=== PATIENT | male | born 1945 | race Caucasian/White ===

== ENCOUNTER 2020-05-23 22:45 | Emergency (ER) | payer MEDICARE, MEDICAID, SELFPAY ==
[2020-05-23 22:47] VITALS: BP 159/90; PULSE 98; RESP 16; TEMP 36.6; O2SAT 95; BMI 41.0
--- NOTE | 2020-05-23 23:00 | ECG_ITS ---
Test Reason : GENERAL Blood Pressure : / mmHG Vent. Rate : 094 BPM Atrial Rate : 094 BPM P-R Int : 194 ms QRS Dur : 102 ms QT Int : 378 ms P-R-T Axes : 032 -40 026 degrees QTc Int : 472 ms Normal sinus rhythm RSR' or QR pattern in V1 suggests right ventricular conduction delay Left anterior fascicular block Nonspecific T wave abnormality Abnormal ECG No previous ECGs available Referred By: Ping Mancia Electronically Signed By:DARIA CORDOBA MD
[2020-05-23 23:01] VITALS: BP 148/84; PULSE 91; RESP 13; TEMP 36.8; O2SAT 93
--- NOTE | 2020-05-23 23:04 | PC.NURSE ---
Pt with c/o headache to back of his head 02/28 that is constant. Reports feelings of generally feeling bad which he attributes to elevated bp. Pt does have bruising to right jaw area which he reports is related to recent dental surgery. MD at bedside and aware of these reports/findings. O2 sat trending 95 and below on room air. This was also reported to md.
--- NOTE | 2020-05-23 23:13 | XR_ITS ---
EXAMINATION: XR CHEST CLINICAL INFORMATION: Cough COMPARISON: None TECHNIQUE: Frontal portable view of the chest was obtained. 11:18 PM FINDINGS: No significant abnormality is noted involving the heart, lungs, mediastinum, bony thorax or soft tissues. XR/XR chest 1V IMPRESSION: Unremarkable examination.
--- NOTE | 2020-05-23 23:13 | ED.GENADULT ---
HPI - General Adult General Chief complaint: General Medical Stated complaint: hi blood pressure Time Seen by Provider: 05/23/20 22:58 Source: patient Mode of arrival: ambulatory Limitations: no limitations History of Present Illness HPI narrative: This is a 74-year-old male history of diabetes who presents with 2 days of generalized weakness and not feeling well . In addition, patient states that he has been having headache and a higher than usual blood pressure. Otherwise, he denies dizziness, sore throat, cough, shortness of breath, leg swelling, chest pain / palpitations, nausea / vomiting /abdominal discomfort, denies polydipsia and polyuria. He states that over the past 2 weeks he has had a lot of dental work with a bridge placement on the upper dental line and then most recently within the past week several implants bilaterally on the lower dental line. He states he had a COVID-19 test 2 days ago in that the results were negative. Related Data Home Medications Medication Instructions Recorded Confirmed aspirin 1 tab PO DAILY 05/23/20 05/23/20 atorvastatin 1 tab PO DAILY 05/23/20 05/23/20 fdjmqzvopk-wxdclpldmbbyd-hshs 1 tab PO DAILY PRN 05/23/20 05/23/20 chlorhexidine gluconate PO BID 05/23/20 doxycycline monohydrate 1 tab PO BID 05/23/20 05/23/20 ibuprofen 1 tab PO TID 05/23/20 05/23/20 metformin 2 tab PO BID 05/23/20 05/23/20 metoprolol succinate 1 tab PO DAILY 05/23/20 05/23/20 sitagliptin [Januvia] 1 tab PO DAILY 05/23/20 05/23/20 Allergies Allergy/AdvReac Type Severity Reaction Status Date / Time Penicillin Allergy Unknown Swelling Uncoded 05/23/20 23:37 Sulfa Allergy Unknown Swelling Uncoded 05/23/20 23:37 Review of Systems Review of Systems: Pertinent positives and negatives as stated in HPI 10 point review of systems is otherwise negative. PMFSH Past Medical History Source: nursing notes reviewed Medical History Diabetes Social History Social History Alcohol intake: never Smoking Status: Never smoker Smoked in Last 30 Days: No Use of substances other than those prescribed or required for medical reasons: No Advance Directives: No Advance Directives Information Provided: No Physical Exam Vital Signs: Vital Signs: Vital Signs Temp Pulse Resp BP Pulse Ox 05/24/20 02:13 98.9 F 93 18 134/95 H 96 05/24/20 00:00 98.3 F 93 15 154/85 H 94 05/23/20 23:01 98.2 F 91 13 148/84 H 93 05/23/20 22:47 97.9 F 98 16 159/90 H 95 Body Mass Index 41.0 VITAL SIGNS: Reviewed. GENERAL: Well developed, well nourished, in no acute distress. HEAD: Normocephalic/atraumatic, EYES: PERRLA, EOMI intact without pain, no nystagmus/pallor/icterus noted EARS: Ext canals without abnormality, TMs non-bulging and non-erythematous NOSE: Nares patent bilateral OROPHARYNX: no oral lesions noted, posterior pharynx clear and non-erythematous without noted tonsillar enlargement/erythema/exudates NECK: Supple, no adenopathy LUNGS: Normal breath sounds. No adventitious sounds or accessory muscle use. SpO2<95> CARDIOVASCULAR: Regular rate and rhythm without noted murmurs, no JVD or lower extremity edema. ABDOMEN: Obese, soft, non-tender, non-distended with bowel sounds. No rigidity. No guarding. No palpable masses or hernias noted MUSCULOSKELETAL: No tenderness, deformities, or effusions noted on gross inspection. EXTREMITIES: No cyanosis, clubbing or edema. SKIN: Inspection of the skin reveals no rashes, ulcerations, jaundice, pallor, or petechiae, mild ecchymosis noted to bilateral aspects of mandible consistent with dental procedure. NEUROLOGIC: Alert and oriented x 4. Strength and sensation to light touch were grossly intact x 4. Course Course Course Narrative: This is a 74-year-old male with history and clinical presentation unclear as yet as the blood pressure is not excessively elevated differentials include everything from viral syndrome, CHF exacerbation, mild dehydration, doubt ACS. Review of all investigations is negative for any evidence of acute infection, anemia, but there is evidence mild dehydration with low sodium/ chloride and elevated BUN. Patient received 1 L of IV fluids with reported improvement of symptoms on re-evaluation. he will be discharged to home in stable condition instructed follow-up with his primary care provider by calling the office in the morning to establish an appointment. Medical Decision Making Lab Data Result diagrams: 05/23/20 23:33 05/23/20 23:33 Labs: Lab Results 05/23/20 05/23/20 05/23/20 Range/Units 23:33 23:33 23:33 WBC 10.7 (4.8-10.8) X10*3/uL RBC 5.66 (4.60-5.80) X10*6/uL Hgb 15.7 (14.0-18.0) g/dl Hct 46.7 (42-52) % MCV 82.5 (80-98) fL MCH 27.7 (27.0-33.0) pg MCHC 33.6 (31.0-36.0) g/dl RDW 13.2 (11.0-16.0) % Plt Count 267 (160-400) X10*3/uL MPV 11.4 (9.4-12.4) fL Immature Gran % (Auto) 0.7 H (0.0-0.4) % Neut % (Auto) 56.6 (45-73) % Lymph % (Auto) 26.7 (20-40) % Robeson % (Auto) 12.5 H (2-11) % Eos % (Auto) 2.5 (0-4) % Baso % (Auto) 1.0 (0-2) % Lymph # (Auto) 2.9 (1.2-4.9) X10*3/uL Robeson # (Auto) 1.3 H (0.1-1.2) X10*3/uL Eos # (Auto) 0.3 (0.0-0.4) X10*3/uL Baso # (Auto) 0.1 (0.0-0.2) X10*3/uL Abs Immat Gran (auto) 0.07 H (0.00-0.03) X10*3/uL Absolute Neuts (auto) 6.1 (2.0-8.3) X10*3/uL Absolute Nucleated RBC 0.000 (0.0-0.012) X10*3/uL Nucleated RBC % (auto) 0.0 (0.0-0.2) /100WBC Sodium 134 L (135-145) mmol/L Potassium 4.2 (3.3-5.1) mmol/l Chloride 95 L (96-108) mmol/L Carbon Dioxide 26 (22-29) mmol/L Anion Gap 17 (12-20) BUN 29 H (9-16) mg/dL Creatinine 1.36 (0.5-1.4) mg/dL Estim Creat Clear Calc 61.6 Estimated GFR 51 Random Glucose 321 H (60-115) mg/dL Calcium 9.3 (8.4-10.2) mg/dL Total Bilirubin 0.8 (0.0-1.0) mg/dL AST 25 (5-37) U/L ALT 32 (0-40) U/L Alkaline Phosphatase 80 (39-117) U/L Troponin I High Sens < 3.5 (<3.5-35.0) ng/L Total Protein 6.9 (6.5-8.0) g/dL Albumin 4.4 (3.5-5.0) g/dL Urine Color Urine Appearance Urine pH (5.0-8.0) Ur Specific [place] (1.005-1.025) Urine Protein (NEG-TRACE) MG/DL Urine Glucose (UA) (NEG) MG/DL Urine Ketones (NEG) MG/DL Urine Blood (NEG) Urine Nitrite (NEG) Ur Leukocyte Esterase (NEG) 05/24/20 Range/Units 00:50 WBC (4.8-10.8) X10*3/uL RBC (4.60-5.80) X10*6/uL Hgb (14.0-18.0) g/dl Hct (42-52) % MCV (80-98) fL MCH (27.0-33.0) pg MCHC (31.0-36.0) g/dl RDW (11.0-16.0) % Plt Count (160-400) X10*3/uL MPV (9.4-12.4) fL Immature Gran % (Auto) (0.0-0.4) % Neut % (Auto) (45-73) % Lymph % (Auto) (20-40) % Robeson % (Auto) (2-11) % Eos % (Auto) (0-4) % Baso % (Auto) (0-2) % Lymph # (Auto) (1.2-4.9) X10*3/uL Robeson # (Auto) (0.1-1.2) X10*3/uL Eos # (Auto) (0.0-0.4) X10*3/uL Baso # (Auto) (0.0-0.2) X10*3/uL Abs Immat Gran (auto) (0.00-0.03) X10*3/uL Absolute Neuts (auto) (2.0-8.3) X10*3/uL Absolute Nucleated RBC (0.0-0.012) X10*3/uL Nucleated RBC % (auto) (0.0-0.2) /100WBC Sodium (135-145) mmol/L Potassium (3.3-5.1) mmol/l Chloride (96-108) mmol/L Carbon Dioxide (22-29) mmol/L Anion Gap (12-20) BUN (9-16) mg/dL Creatinine (0.5-1.4) mg/dL Estim Creat Clear Calc Estimated GFR Random Glucose (60-115) mg/dL Calcium (8.4-10.2) mg/dL Total Bilirubin (0.0-1.0) mg/dL AST (5-37) U/L ALT (0-40) U/L Alkaline Phosphatase (39-117) U/L Troponin I High Sens (<3.5-35.0) ng/L Total Protein (6.5-8.0) g/dL Albumin (3.5-5.0) g/dL Urine Color YELLOW Urine Appearance CLEAR Urine pH 6.0 (5.0-8.0) Ur Specific [place] 1.020 (1.005-1.025) Urine Protein NEG (NEG-TRACE) MG/DL Urine Glucose (UA) 250 H (NEG) MG/DL Urine Ketones 5 (NEG) MG/DL Urine Blood NEG (NEG) Urine Nitrite NEG (NEG) Ur Leukocyte Esterase NEG (NEG) ECG Data Attestation: I personally reviewed and interpreted this ECG as follows: Prior ECG tracings: not available for review Interpretation: normal sinus rhythm, HR- 94, no evidence of acute ischemia, OR/QTC within normal limits Discharge Plan Discharge Clinical Impression: Dehydration Patient Disposition: Home, Self-Care Instructions: Dehydration (ED) Additional Instructions: 1. Please follow-up with your primary care provider by calling the office this morning to set up a follow-up appointment. 2. continue to drink plenty of fluids especially water. The patient and/or family acknowledge understanding of results (as applicable), diagnosis, treatment plan, need for follow up, and symptoms that should prompt a return to the emergency room. Prescriptions: No Action atorvastatin 40 mg tablet 1 tab PO DAILY RF: 0 metformin 500 mg tablet 2 tab PO BID RF: 0 aspirin 81 mg tablet,delayed release (DR/EC) 1 tab PO DAILY RF: 0 doxycycline monohydrate 100 mg tablet 1 tab PO BID RF: 0 peyjycyjlt-cibqeqxyeokqy-zify 50-325-40 mg tablet 1 tab PO DAILY PRN (Reason: headache) RF: 0 metoprolol succinate 25 mg tablet extended release 24 hr 1 tab PO DAILY RF: 0 ibuprofen 600 mg tablet 1 tab PO TID RF: 0 chlorhexidine gluconate 0.12 % mouthwash PO BID RF: 0 Januvia 100 mg tablet 1 tab PO DAILY RF: 0 Referrals: Physician,Unknown [Primary Care Provider] - 2 days (Re-evaluation)
[2020-05-23 23:37] LABS: MANUAL DIFF FLAG NO
[2020-05-23 23:39] LABS: Basophils Absolute Auto 0.1 X10*3/uL (0.0-0.2); Eosinophils Absolute Auto 0.3 X10*3/uL (0.0-0.4); Eosinophils Percent Auto 2.5 % (0-4); Hematocrit 46.7 % (42-52); Hemoglobin 15.7 g/dl (14.0-18.0); Imm Gran Abs Auto 0.07 X10*3/uL (0.00-0.03); Imm Gran Pct Auto 0.7 % (0.0-0.4); Lymphocytes Absolute Auto 2.9 X10*3/uL (1.2-4.9); Lymphocytes Percent Auto 26.7 % (20-40); Mean Corpuscular HGB Conc 33.6 g/dl (31.0-36.0); Mean Corpuscular Hemoglobin 27.7 pg (27.0-33.0); Mean Corpuscular Volume 82.5 fL (80-98); Mean Platelet Volume 11.4 fL (9.4-12.4); Monocytes Absolute Auto 1.3 X10*3/uL (0.1-1.2); Monocytes Percent Auto 12.5 % (2-11); Neutrophils Absolute Auto 6.1 X10*3/uL (2.0-8.3); Neutrophils Percent Auto 56.6 % (45-73); Platelet Count 267 X10*3/uL (160-400); Red Blood Count 5.66 X10*6/uL (4.60-5.80); Red Cell Distribution Width 13.2 % (11.0-16.0); White Blood Count 10.7 X10*3/uL (4.8-10.8)
[2020-05-24] VITALS: BP 154/85; PULSE 93; RESP 15; TEMP 36.8; O2SAT 94
[2020-05-24 00:05] LABS: Alanine Aminotransferase 32 U/L (0-40); Albumin Level 4.4 g/dL (3.5-5.0); Alkaline Phosphatase 80 U/L (39-117); Anion Gap 17 (12-20); Aspartate Amino Transferase 25 U/L (5-37); Bilirubin Total 0.8 mg/dL (0.0-1.0); Blood Urea Nitrogen 29 mg/dL (9-16); Calcium 9.3 mg/dL (8.4-10.2); Carbon Dioxide 26 mmol/L (22-29); Chloride 95 mmol/L (96-108); Creatinine Clr Calc Pharmacy 61.6; Estimated Glomerular Filt Rate 51; Glucose Random 321 mg/dL (60-115); Potassium 4.2 mmol/l (3.3-5.1); Sodium 134 mmol/L (135-145); Total Protein 6.9 g/dL (6.5-8.0)
[2020-05-24 00:08] LABS: Troponin-I High Sensitivity < 3.5 ng/L (<3.5-35.0)
[2020-05-24] MEDS: 0.9 % Sodium Chloride 1,000 ML 1000 ML IV (00:40)
--- NOTE | 2020-05-24 01:10 | PC.NURSE ---
report taken from alexa douglas at this time. pending urine sample. vague headache symptoms associated with his stated complaint of high bp. pt neuro intact, nad noted. denies chest pain.
[2020-05-24 01:18] LABS: Glucose Urine UA 250 MG/DL (NEG); Leukocyte Esterase Urine NEG (NEG); Nitrite Urine NEG (NEG); Urine Blood NEG (NEG); Urine Ketones 5 MG/DL (NEG); Urine Protein NEG (NEG-TRACE)
[2020-05-24 01:20] LABS: Appearance Urine CLEAR; Color Urine YELLOW
[2020-05-24 02:13] VITALS: BP 134/95; PULSE 93; RESP 18; TEMP 37.2; O2SAT 96
--- NOTE | 2020-05-24 02:23 | PC.NURSE ---
pt requesting to leave, states he feels better. iv d/c. bp stable. nad nopted. neuro intact. ambulating with steady gait.
== END 2020-05-24 02:33 | disposition home or self-care (01) ==
PROVIDERS: Emergency Provider Student in an Organized Health Care Education/Training Program
DX: E86.0 Dehydration (principal); I10 Essential (primary) hypertension; R51.9 Headache, unspecified; R42 Dizziness and giddiness; Z79.899 Other long term (current) drug therapy; Z20.828 Contact with and (suspected) exposure to other viral communicable diseases
CPT/HCPCS: 36415; 71045; 80053; 81003; 84484; 85025; 93005; 96360; 99284

== ENCOUNTER 2020-12-31 22:26 | Emergency (ER) | payer MEDICARE, MEDICAID, SELFPAY ==
--- NOTE | ~2020-12-31 | XR_ITS ---
EXAMINATION: XR KNEE, LEFT CLINICAL INFORMATION: Fall, pain COMPARISON: None TECHNIQUE: Four views of the left knee. FINDINGS: Osseous alignment is anatomic. There is mild tricompartmental joint space narrowing. Minimal spurring is present along the posterior patella. No acute fracture is seen. There is mild chronic appearing cortical deformity of the distal femur posteriorly. No significant effusion. Minimal vascular calcification noted. XR/XR knee LT 4V IMPRESSION: No acute findings identified.
--- NOTE | ~2020-12-31 | XR_ITS ---
EXAMINATION: XR ANKLE, LEFT XR FOOT, LEFT CLINICAL INFORMATION: Fall with pain and swelling COMPARISON: None TECHNIQUE: 3 views of the left ankle. 3 views of the left foot. FINDINGS: Left ankle: Osseous alignment is anatomic. No acute fracture is seen. Mild circumferential soft tissue swelling is noted. Left foot: Osseous alignment is anatomic. No acute fracture is seen. Plantar calcaneal spur is present. No significant focal soft tissue abnormality identified. Small amount of calcification between the first and second metatarsals is favored to be vascular. XR/XR foot LT min 3V IMPRESSION: No acute findings identified in the left ankle or foot.
--- NOTE | ~2020-12-31 | XR_ITS ---
EXAMINATION: XR ELBOW, LEFT CLINICAL INFORMATION: Fall COMPARISON: None TECHNIQUE: AP, lateral, and oblique views of the left elbow. FINDINGS: Osseous alignment is anatomic. No acute fracture is seen. There is suggestion of calcific tendinosis near the medial epicondyle. No significant effusion. XR/XR elbow LT 2V IMPRESSION: No acute findings identified.
--- NOTE | ~2020-12-31 | XR_ITS ---
EXAMINATION: XR ANKLE, LEFT XR FOOT, LEFT CLINICAL INFORMATION: Fall with pain and swelling COMPARISON: None TECHNIQUE: 3 views of the left ankle. 3 views of the left foot. FINDINGS: Left ankle: Osseous alignment is anatomic. No acute fracture is seen. Mild circumferential soft tissue swelling is noted. Left foot: Osseous alignment is anatomic. No acute fracture is seen. Plantar calcaneal spur is present. No significant focal soft tissue abnormality identified. Small amount of calcification between the first and second metatarsals is favored to be vascular. XR/XR ankle LT min 3V IMPRESSION: No acute findings identified in the left ankle or foot.
[2020-12-31 23:56] VITALS: BP 125/67; PULSE 83; RESP 20; TEMP 36.2; O2SAT 95; BMI 41.0
--- NOTE | 2021-01-01 00:52 | ED.FALL ---
HPI - Fall General Chief Complaint: Fall Stated Complaint: left foot pain Time Seen by Provider: 01/01/21 00:18 Source: patient Mode of arrival: ambulatory Limitations: no limitations History of Present Illness HPI Narrative: 75-year-old male presents with injury sustained from a fall while walking in the [place]. He fell on his left elbow, left knee and left ankle. He does have some abrasions to the knee and elbow and swelling to the left ankle. He is able to ambulate however states the pain is preventing him from walking appropriately. He does not know when his last Tdap vaccine was updated. He denies hitting his head, losing his consciousness, and denies chest pain and pressure, palpitations, shortness of breath, shortness of breath on exertion, abdominal pain and distention, symptoms indicating cauda equina, and any other concerning symptoms. He denies prodromal event, and states that he was distracted by a deer when he tripped and fell. MD complaint: fall Onset (ago): hour(s) (3:00 p.m.) Fall from: standing Fall witnessed: yes, by bystander Place fall occurred: other (Forced) Loss of consciousness: none Prolonged down time: no Symptoms prior to fall: none Context: tripped/slipped Location of injury - extremities: left: elbow, knee, ankle and foot Severity: moderate Severity scale (1-10): 5 Quality: aching Associated symptoms (after fall): denies Related Data Home Medications Medication Instructions Recorded Confirmed aspirin 1 tab PO DAILY 05/23/20 05/23/20 atorvastatin 1 tab PO DAILY 05/23/20 05/23/20 tqtjttsrcq-ajnpkyygspaut-rbaz 1 tab PO DAILY PRN 05/23/20 05/23/20 chlorhexidine gluconate PO BID 05/23/20 doxycycline monohydrate 1 tab PO BID 05/23/20 05/23/20 ibuprofen 1 tab PO TID 05/23/20 05/23/20 metformin 2 tab PO BID 05/23/20 05/23/20 metoprolol succinate 1 tab PO DAILY 05/23/20 05/23/20 sitagliptin [Januvia] 1 tab PO DAILY 05/23/20 05/23/20 Allergies Allergy/AdvReac Type Severity Reaction Status Date / Time Penicillin Allergy Unknown Swelling Uncoded 05/23/20 23:37 Sulfa Allergy Unknown Swelling Uncoded 05/23/20 23:37 Review of Systems Review of Systems: Constitutional: No Fever, No Chills ENT/Mouth: No Ear Pain, No Hoarseness, No sore throat Eyes: No Eye Pain, No Swelling, No Redness, No Foreign Body Cardiovascular: No Chest Pain, No SOB Respiratory: No Cough, No Dyspnea Gastrointestinal: No Nausea, No Vomiting, No Diarrhea, No abdominal Pain Genitourinary: No Dysuria, No Hematuria Musculoskeletal: positive left elbow, knee, and ankle pain, No Myalgias, No Joint Swelling Skin: Positive abrasions elbow and knee, No Skin lacerations, No rash Neuro: No Weakness, No Numbness, No Paresthesias, No Loss of Consciousness, No Dizziness, No Headache Psych: No Anxiety/Panic, No Depression Heme/Lymph: no easy bruising, no Lymphadenopathy Endocrine: No Polyuria, No Polydipsia Yes all other systems are reviewed and are negative [facility] Past Medical History Attestation statement: The following information was validated with the patient. Source: old records reviewed Medical History Diabetes Social History Social History Alcohol intake: never Advance Directives: No Advance Directives Information Provided: No Physical Exam Vital Signs: Vital Signs: Last Vital Signs Temp 97.1 F 12/31/20 23:56 Pulse 83 12/31/20 23:56 Resp 20 12/31/20 23:56 BP 125/67 12/31/20 23:56 Pulse Ox 95 12/31/20 23:56 Body Mass Index 41.0 Appearance: Alert. Oriented X3. No acute distress. Eyes: Pupils equal, round and reactive to light. ENT: Pharynx normal. Neck: Normal inspection. Neck supple. No vertebral tenderness noted no step-offs. Full range of motion to neck passive, active range of motion and against resistance. No pain noted. CVS: Normal heart rate and rhythm. Pulses normal. Respiratory: No respiratory distress. Breath sounds normal. No chest wall tenderness to palpation. Abdomen: Soft and nontender. Skin: Superficial abrasion to the left elbow and left knee. Skin warm and dry. Normal skin color. Normal skin turgor. Extremities: Full range of motion and strength to all extremities, does have some swelling to the left lateral malleolar process with tenderness noted, no ecchymosis. Full range of motion flexion extension internal and external rotation however tender when ambulation. Left elbow full range of motion, strength 5/5. Tenderness to the left shoulder however he does have arthritis and this is his baseline. Pulses equal to all extremities, brisk capillary refill. Neuro: No motor deficit. No sensory deficit. Course Course Course Narrative: 75-year-old male presents with a trip and fall injury. Will order x-rays of the elbow, knee, foot and ankle. Will update Tdap vaccine at this time. X-rays negative for acute findings requiring emergent intervention. Will John wrap, and give cane with postop shoe. Detailed description by this [employer] to family regarding ankle sprain care. Family and patient verbalizes understanding of and agrees to plan of care discharge home. MDM - Fall MDM Narrative Medical decision making narrative: Sprain, abrasion Differential Diagnosis Differential diagnosis: Likely dislocation and fracture Lab Data Attestation: I reviewed the patient's lab results. Imaging Data Left elbow, knee, foot and ankle x-ray: Attestation: I personally reviewed and interpreted this imaging study as follows: Radiologist's impression: EXAMINATION: XR KNEE, LEFT CLINICAL INFORMATION: Fall, pain COMPARISON: None TECHNIQUE: Four views of the left knee. FINDINGS: Osseous alignment is anatomic. There is mild tricompartmental joint space narrowing. Minimal spurring is present along the posterior patella. No acute fracture is seen. There is mild chronic appearing cortical deformity of the distal femur posteriorly. No significant effusion. Minimal vascular calcification noted. XR/XR knee LT 4V IMPRESSION: No acute findings identified. EXAMINATION: XR ANKLE, LEFT XR FOOT, LEFT CLINICAL INFORMATION: Fall with pain and swelling COMPARISON: None TECHNIQUE: 3 views of the left ankle. 3 views of the left foot. FINDINGS: Left ankle: Osseous alignment is anatomic. No acute fracture is seen. Mild circumferential soft tissue swelling is noted. Left foot: Osseous alignment is anatomic. No acute fracture is seen. Plantar calcaneal spur is present. No significant focal soft tissue abnormality identified. Small amount of calcification between the first and second metatarsals is favored to be vascular. XR/XR foot LT min 3V IMPRESSION: No acute findings identified in the left ankle or foot. EXAMINATION: XR ELBOW, LEFT CLINICAL INFORMATION: Fall COMPARISON: None TECHNIQUE: AP, lateral, and oblique views of the left elbow. FINDINGS: Osseous alignment is anatomic. No acute fracture is seen. There is suggestion of calcific tendinosis near the medial epicondyle. No significant effusion. XR/XR elbow LT 2V IMPRESSION: No acute findings identified. Discharge Plan Discharge Clinical Impression: Abrasion, Sprain and strain of ankle Fall Qualifiers: Encounter type: initial encounter Qualified Code(s): W19.XXXA - Unspecified fall, initial encounter Patient Disposition: Home, Self-Care Instructions: Ankle Sprain (ED), R.I.C.E. Treatment (ED) Additional Instructions: You were evaluated after injury sustained from a fall. X-rays are negative for fracture to the left elbow, left knee, left foot and ankle. We are treating you for a grade 2 sprain to the left ankle. Please use John wrap as needed for comfort. Use Tylenol and Motrin to help relieve pain. Ice and elevate to help reduce swelling. Follow-up with primary care physician for further evaluation. We updated your Tdap vaccine today. Thank you for choosing this emergency department for evaluation. Please follow-up with primary care physician as needed. Return to the emergency department for any new, concerning, or worsening symptoms. Prescriptions: No Action atorvastatin 40 mg tablet 1 tab PO DAILY RF: 0 metformin 500 mg tablet 2 tab PO BID RF: 0 aspirin 81 mg tablet,delayed release (DR/EC) 1 tab PO DAILY RF: 0 doxycycline monohydrate 100 mg tablet 1 tab PO BID RF: 0 hyxjebqphi-erhuftdhddzxa-gcai 50-325-40 mg tablet 1 tab PO DAILY PRN (Reason: headache) RF: 0 metoprolol succinate 25 mg tablet extended release 24 hr 1 tab PO DAILY RF: 0 ibuprofen 600 mg tablet 1 tab PO TID RF: 0 chlorhexidine gluconate 0.12 % mouthwash PO BID RF: 0 Januvia 100 mg tablet 1 tab PO DAILY RF: 0 Referrals: Mely Kat PA-C [Physician Plastic Finisher] - 2 days (Grade 2 left ankle sprain)
[2021-01-01] MEDS: Diphth,Pertus(ACell),Tet Adult 0.5 ML SYRINGE IM (01:00)
== END 2021-01-01 01:33 | disposition home or self-care (01) ==
PROVIDERS: Emergency Provider Internal Medicine; PCP Internal Medicine
DX: S93.402A Sprain of unspecified ligament of left ankle, initial encounter (principal); S50.312A Abrasion of left elbow, initial encounter; S80.212A Abrasion, left knee, initial encounter; E11.9 Type 2 diabetes mellitus without complications; Z79.84 Long term (current) use of oral hypoglycemic drugs; W19.XXXA Unspecified fall, initial encounter; Y93.01 Activity, walking, marching and hiking; Y92.828 Other wilderness area as the place of occurrence of the external cause; Y99.9 Unspecified external cause status
CPT/HCPCS: 73070; 73564; 73610; 73630; 90471; 90715; 99284

== ENCOUNTER 2022-02-04 10:55 | Emergency (ER) | payer MEDICARE, MEDICAID, SELFPAY ==
[2022-02-04 11:27] VITALS: BP 141/72; PULSE 92; RESP 17; TEMP 36.6; O2SAT 98; BMI 48.4
== END 2022-02-04 16:54 | disposition left against medical advice (07) ==
PROVIDERS: Emergency Provider Emergency Medicine
DX: I10 Essential (primary) hypertension (principal); K13.79 Other lesions of oral mucosa
CPT/HCPCS: 99281

== ENCOUNTER 2023-04-05 14:00 | Outpatient (RCR) | payer OTHER, SELFPAY ==
[2023-03-27 10:04] VITALS: BP 134/68; PULSE 67
== END 2023-05-10 13:50 | disposition home or self-care (01) ==
LOC: HO.PT 14:00
PROVIDERS: PCP Nurse Practitioner; Visit Provider Family Medicine
DX: H81.11 Benign paroxysmal vertigo, right ear (principal)
CPT/HCPCS: 95992; 97112; 97161

== ENCOUNTER 2023-04-19 10:00 | Outpatient (RCR) | payer OTHER, SELFPAY | END 2023-04-19 10:58 | disposition home or self-care (01) | LOC: HO.PT 10:00 | PROVIDERS: PCP Nurse Practitioner; Visit Provider Physical Medicine & Rehabilitation | DX: M54.50 Low back pain, unspecified (principal) | CPT/HCPCS: 97110; 97140; 97161; 97530 ==

== ENCOUNTER 2023-09-19 14:21 | Outpatient (AMB) | payer OTHER, SELFPAY ==
--- NOTE | 2023-09-19 14:24 | A.OFFVIS_ITS ---
Intake Vital Signs 09/19/23 14:33 Height 5 ft 6 in Weight 296 lb BMI 47.8 BP 136/68 Blood Pressure Location Lt brachial Position Sitting Respiration 16 Pulse 78 Pulse Source Pulse Oximeter Pulse Oximetry (%) 96 Oxygen Delivery Method Room Air Intake Visit Reasons: Low back pain/ LVM Intake Note: Patient comes in for initial visit was referred by primary care. Reports pain 01/28. Allergies Penicillin Allergy (Unknown, Uncoded 05/23/20 23:37) Swelling Sulfa Allergy (Unknown, Uncoded 05/23/20 23:37) Swelling HPI HPI Comments History of Present Illness Details Rodolfo is very pleasant 77 years old gentleman who presents in my office with complains on pain in the lower back more to the left side. He reported the pain started approximately 3 years ago. He denies inciting events. He reports that standing hurts more than sitting sitting and laying down he experiences no pain. He reports that he can not do daily activities because of his pain, he can not take care of himself but he can not function normally. He is retired individual. He is self mobile. He reports that application of heat alleviates his pain for half an hour. In terms of tissue damage he reports his pain as stabbing, aching, heavy, tiring, exhausting. He never had any images of the lumbar spine. He had physical therapy April 2023 he had 12 sessions unfortunately it did not help his pain. His past medical history significant for diabetes. He had obesity surgery of unknown nature, I suspect it was gastric banding because of him saying that it was removed after it was not effective for his weight control. He never received any injections. ON LICENSE OF [facility] Medical History Diabetes Social History Alcohol intake: never Review of Systems Const Denies chills, Reports excessive sweating, Denies fatigue, Denies fever(s) and Reports weight gain Eyes Denies blurry vision, Denies exophthalmos and Denies diplopia ENT Reports Normal hearing present, Denies vertigo and Denies dizziness Card Denies chest pain, Denies chest pain at rest, Denies chest pain with activity, Reports diaphoresis, Denies syncope, Denies rapid heart rate, Denies pedal edema and Denies edema Resp Denies chest congestion, Denies cough, Denies hemoptysis, Denies excessive phlegm production, Denies pain on inspiration and Denies pain with cough GI Denies abdominal pain, Denies belching, Denies melena and Denies bloating Denies urinary incontinence Musc Denies as per HPI, Denies back pain and Denies tingling Neuro Reports Normal hearing present, Denies Abnormal speech present, Denies confusion, Denies vertigo, Denies dizziness, Denies syncope, Denies lack of coordination, Denies Sensory deficit (Neuro) and Denies tingling Psych Denies no additional complaints, Denies confusion, Denies depression and Denies irritability Endo Denies deepening of the voice, Reports excessive sweating, Denies fatigue and Denies polyuria Physical Exam Vital Signs: Last Vital Signs Pulse 78 09/19/23 14:33 Resp 16 09/19/23 14:33 BP 136/68 09/19/23 14:33 Pulse Ox 96 09/19/23 14:33 Oxygen Delivery Method Room Air 09/19/23 14:33 BMI result Body Mass Index 47.8 Const General: No confusion Nutritional Appearance: obese morbidly obese Orientation/consciousness: No confusion Eyes General: appearance normal, both eyes and all related structures Pupils: Equal, round and reactive pupils present EOM: EOMs intact bilaterally Neck Neck: Yes full ROM Chest Chest palpation & inspection: normal inspection of the chest Resp Effort & Inspection: normal respiratory effort, able to speak in complete sentences, normal respiratory pattern, no audible wheezes and no cough Cardio Jugular venous distension: no JVD GI Inspection: Yes normal to inspection Back/Spine/Pelvis Other: Able to stand on bilateral tiptoes in bilateral heels without difficulty. Able to lift great toe in separation of the rest of the toes. Denies numbness and weakness on bilateral lower extremities. Denies Valsalva maneuver aggravating his pain. Denies pelvic organ dysfunction. SLR is negative for pain increase.Lassegue test is negative for pain increase. Jordan test is negative for pain increase. No tenderness on palpation in paraspinal spinal region of the lumbar spine reports most of the tenderness on palpation in the projection of the left iliac crest. Loading test is negative bilaterally. Neuro General: No confusion Cranial nerves: Yes Equal, round and reactive pupils present and Yes Normal hearing present Speech: No Abnormal speech present Gait exam (Neuro): Normal gait present Motor exam (neuro): 5/5 motor strength present throughout Sensory Exam: No Sensory deficit (Neuro) Extrem General: No pedal edema Psych Speech and movement: Normal speech and movement present Affect: normal affect Attitude: cooperative Thought process: Normal thought process present Thought content: Normal thought content present Insight: Good insight present (Psych) Judgement: Good judgement present (Psych) Assessment & Plan Assessment & Plan (1) Spondylosis of lumbar region without myelopathy or radiculopathy: Code(s): M47.816 - Spondylosis without myelopathy or radiculopathy, lumbar region (2) Chronic pain syndrome: Code(s): G89.4 - Chronic pain syndrome (3) Mononeuropathy, unspecified: Code(s): G58.9 - Mononeuropathy, unspecified Plan Rodolfo went for physical therapy less than 5 months ago and he reported no improvement of his pain. He never had any me any images of the lumbar spine. I will send him for x-ray of the lumbar spine minimum two views. If there is significant spondylotic changes I will offer him diagnostic medial branch block. However on physical exam there was also indication that patient might be suffering from cluneal nerve entrapment. If the diagnostic medial branch block will not help with his pain I will try diagnostic left cluneal nerve injection on him. To help him with his pain I will start him on small dose baclofen muscle relaxants. Orders: Orders XR lumbar spine 2-3V Today M47.816 - Spondylosis without myelopathy or radiculopathy, lumbar region Medications: New baclofen 10 mg PO TID 90 tabs 6RF 30 days Coding Level of Care Code New Pt Level 3 (50925) Diagnoses Spondylosis of lumbar region without myelopathy or radiculopathy M47.816 Chronic pain syndrome G89.4 Mononeuropathy, unspecified G58.9
[2023-09-19 14:33] VITALS: BP 136/68; PULSE 78; RESP 16; O2SAT 96; BMI 47.8
== END 2023-09-19 14:51 | disposition home or self-care (01) ==
PROVIDERS: PCP Nurse Practitioner; Visit Provider Anesthesiology
DX: M47.816 Spondylosis without myelopathy or radiculopathy, lumbar region (principal); G89.4 Chronic pain syndrome; G58.9 Mononeuropathy, unspecified
CPT/HCPCS: 99203

== ENCOUNTER 2023-09-19 14:21 | Outpatient (REF) | payer OTHER, SELFPAY ==
--- NOTE | ~2023-09-19 | XR_ITS ---
EXAMINATION: XR LUMBOSACRAL SPINE CLINICAL INFORMATION: Spondylosis without myelopathy or radiculopathy lumbar region. COMPARISON: None available. TECHNIQUE: 4 views of the lumbar spine. FINDINGS: The bones are diffusely demineralized. Degenerative changes in the imaged lower thoracic spine. Atherosclerotic aortoiliac calcifications. Degenerative changes in the imaged left sacroiliac joint. Facet arthritis in the [id number] lumbar spine. Multilevel lumbar spondylosis with advanced degenerative changes and loss of disc space height at L5-S1. XR/XR lumbar spine 2-3V IMPRESSION: Multilevel lumbar spondylosis with advanced degenerative changes and loss of disc space height at L5-S1.
== END 2023-09-19 14:22 | disposition home or self-care (01) ==
LOC: HO.XRAY 14:21
PROVIDERS: PCP Nurse Practitioner; Visit Provider Anesthesiology
DX: M47.816 Spondylosis without myelopathy or radiculopathy, lumbar region (principal); G89.4 Chronic pain syndrome; G58.9 Mononeuropathy, unspecified
CPT/HCPCS: 72100; 99202

== ENCOUNTER 2023-09-26 11:35 | Outpatient (AMB) | payer OTHER, SELFPAY ==
--- NOTE | 2023-09-26 11:40 | MHC.OFFVIS ---
Intake Vital Signs 09/26/23 11:46 Height 5 ft 6 in Weight 296 lb BMI 47.8 BP 132/64 Blood Pressure Location Lt brachial Position Sitting Respiration 12 Pulse 76 Pulse Source Pulse Oximeter Pulse Oximetry (%) 96 Oxygen Delivery Method Room Air Intake Visit Reasons: 1 WEEK FOLLOW UP AFTER XRAY Intake Note: Patient comes in for 1 week follow up. Reports pain 6.5/10. Allergies Penicillin Allergy (Unknown, Uncoded 05/23/20 23:37) Swelling Sulfa Allergy (Unknown, Uncoded 05/23/20 23:37) Swelling HPI HPI Comments History of Present Illness Details Rodolfo is back in my office after x-ray of the lumbar spine. Results are as below. Sacroiliac joint on the left was found to be degenerative as well as widespread degeneration of the lumbar spine. I offered him L3-L4 does ramus L5 bilateral MBB diagnostic 1st. On my initial exam I was thinking about left cluneal nerve injection, however now I am thinking about sacroiliac joint injection 1st although patient's Jordan test is negative on the physical exam. Prior: very pleasant 77 years old gentleman who presents in my office with complains on pain in the lower back more to the left side. He reported the pain started approximately 3 years ago. He denies inciting events. He reports that standing hurts more than sitting sitting and laying down he experiences no pain. He reports that he can not do daily activities because of his pain, he can not take care of himself but he can not function normally. He had physical therapy April 2023 he had 12 sessions unfortunately it did not help his pain. His past medical history significant for diabetes. He had obesity surgery of unknown nature, I suspect it was gastric banding because of him saying that it was removed after it was not effective for his weight control. He never received any injections. [facility] Medical History Diabetes Social History Alcohol intake: never Review of Systems Const Denies chills, Reports excessive sweating, Denies fatigue, Denies fever(s) and Reports weight gain Eyes Denies blurry vision, Denies exophthalmos and Denies diplopia ENT Reports Normal hearing present, Denies vertigo and Denies dizziness Card Denies chest pain, Denies chest pain at rest, Denies chest pain with activity, Reports diaphoresis, Denies syncope, Denies rapid heart rate, Denies pedal edema and Denies edema Resp Denies chest congestion, Denies cough, Denies hemoptysis, Denies excessive phlegm production, Denies pain on inspiration and Denies pain with cough GI Denies abdominal pain, Denies belching, Denies melena and Denies bloating Denies urinary incontinence Musc Denies as per HPI, Denies back pain and Denies tingling Neuro Reports Normal hearing present, Denies Abnormal speech present, Denies confusion, Denies vertigo, Denies dizziness, Denies syncope, Denies lack of coordination, Denies Sensory deficit (Neuro) and Denies tingling Psych Denies no additional complaints, Denies confusion, Denies depression and Denies irritability Endo Denies deepening of the voice, Reports excessive sweating, Denies fatigue and Denies polyuria Physical Exam Vital Signs: Last Vital Signs Pulse 76 09/26/23 11:46 Resp 12 09/26/23 11:46 BP 132/64 09/26/23 11:46 Pulse Ox 96 09/26/23 11:46 Oxygen Delivery Method Room Air 09/26/23 11:46 BMI result Body Mass Index 47.8 Const General: No confusion Nutritional Appearance: obese morbidly obese Orientation/consciousness: No confusion Eyes General: appearance normal, both eyes and all related structures Pupils: Equal, round and reactive pupils present EOM: EOMs intact bilaterally Neck Neck: Yes full ROM Chest Chest palpation & inspection: normal inspection of the chest Resp Effort & Inspection: normal respiratory effort, able to speak in complete sentences, normal respiratory pattern, no audible wheezes and no cough Cardio Jugular venous distension: no JVD GI Inspection: Yes normal to inspection Back/Spine/Pelvis Other: Able to stand on bilateral tiptoes in bilateral heels without difficulty. Able to lift great toe in separation of the rest of the toes. Denies numbness and weakness on bilateral lower extremities. Denies Valsalva maneuver aggravating his pain. Denies pelvic organ dysfunction. SLR is negative for pain increase.Lassegue test is negative for pain increase. Jordan test is negative for pain increase. No tenderness on palpation in paraspinal spinal region of the lumbar spine reports most of the tenderness on palpation in the projection of the left iliac crest. Loading test is negative bilaterally. Neuro General: No confusion Cranial nerves: Yes Equal, round and reactive pupils present and Yes Normal hearing present Speech: No Abnormal speech present Gait exam (Neuro): Normal gait present Motor exam (neuro): 5/5 motor strength present throughout Sensory Exam: No Sensory deficit (Neuro) Extrem General: No pedal edema Psych Speech and movement: Normal speech and movement present Affect: normal affect Attitude: cooperative Thought process: Normal thought process present Thought content: Normal thought content present Insight: Good insight present (Psych) Judgement: Good judgement present (Psych) Results Reviewed Results Reviewed: XR LUMBOSACRAL SPINE FINDINGS: The bones are diffusely demineralized. Degenerative changes in the imaged lower thoracic spine. Atherosclerotic aortoiliac calcifications. Degenerative changes in the imaged left sacroiliac joint. Facet arthritis in the [id number] lumbar spine. Multilevel lumbar spondylosis with advanced degenerative changes and loss of disc space height at L5-S1. XR/XR lumbar spine 2-3V IMPRESSION: Multilevel lumbar spondylosis with advanced degenerative changes and loss of disc space height at L5-S1. Assessment & Plan Assessment & Plan (1) Spondylosis of lumbar region without myelopathy or radiculopathy: Code(s): M47.816 - Spondylosis without myelopathy or radiculopathy, lumbar region (2) Chronic pain syndrome: Code(s): G89.4 - Chronic pain syndrome (3) Mononeuropathy, unspecified: Code(s): G58.9 - Mononeuropathy, unspecified Plan Rodolfo went for physical therapy less than 5 months ago and he reported no improvement of his pain. I sent him for the x-ray and results of the x-ray dictated as above. I offered him diagnostic medial branch block L3-L4 dorsal ramus L5 bilateral in the attempt to alleviate and diagnose his pain. Risks and benefits explained. All questions were answered. 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 If if the injection in the lumbar spine will not be working for him than before previously planned cluneal nerve injection I will try left sacroiliac joint injection. I will see this patient in the office after the performed injection. him. To help him with his pain I will start him on small dose baclofen muscle relaxants. Patient Instructions: I here by testify that I spent 35 minutes in conversation with this patient as well as planning his care, organizing this note. Coding Level of Care Code Est Pt Level 4 (91823) Diagnoses Spondylosis of lumbar region without myelopathy or radiculopathy M47.816 Chronic pain syndrome G89.4 Mononeuropathy, unspecified G58.9
[2023-09-26 11:46] VITALS: BP 132/64; PULSE 76; RESP 12; O2SAT 96; BMI 47.8
== END 2023-09-26 12:15 | disposition home or self-care (01) ==
PROVIDERS: PCP Family Medicine; Visit Provider Anesthesiology
DX: M47.816 Spondylosis without myelopathy or radiculopathy, lumbar region (principal); G89.4 Chronic pain syndrome; G58.9 Mononeuropathy, unspecified
CPT/HCPCS: 99214

== ENCOUNTER → 2023-09-26 11:38 | Outpatient (BNVA) | payer OTHER, SELFPAY | PROVIDERS: PCP Nurse Practitioner; Visit Provider Anesthesiology | DX: M47.816 Spondylosis without myelopathy or radiculopathy, lumbar region (principal); G58.9 Mononeuropathy, unspecified; G89.4 Chronic pain syndrome | CPT/HCPCS: 99212 ==

== ENCOUNTER 2023-10-29 06:17 | Outpatient (REF) | payer OTHER, SELFPAY ==
--- NOTE | ~2023-10-29 | FL_ITS ---
EXAMINATION: XR FLUOROSCOPY WITH IMAGES CLINICAL INFORMATION: Lumbar spondylosis, without myelopathy or radiculopathy. COMPARISON: Lumbar spine radiographs dated 09/19/2023. TECHNIQUE: Fluoroscopy Supervised By: Dr. Willam Urbano. Fluoroscopy Time: 0.9. Cumulative Dose: 34.1 mGy. DAP: 6.08 Gycm2. Images: 6. FINDINGS: The submitted images show injection needles and injected contrast in the vicinity of the bilateral L3-L4, L4-L5 and L5-S1 neural foramina. FL/FL guidance in treatment room IMPRESSION: Intraoperative fluoroscopic guidance is provided during lumbar pain management procedure. Please see the patient's Operative Report for full procedural details.
== END 2023-10-29 06:18 | disposition home or self-care (01) ==
LOC: CF 06:17
PROVIDERS: Visit Provider Anesthesiology
DX: M47.816 Spondylosis without myelopathy or radiculopathy, lumbar region (principal)
CPT/HCPCS: 64493; 64494; J2795; Q9967

== ENCOUNTER 2023-10-29 13:00 | Outpatient (AMB) | payer OTHER, SELFPAY ==
[2023-10-29 13:06] VITALS: BP 110/62; PULSE 84; RESP 12; O2SAT 94
--- NOTE | 2023-10-29 13:06 | A.OFFVIS_ITS ---
Intake Vital Signs 10/29/23 13:06 10/29/23 13:50 Height 5 ft 6 in Weight 296 lb BMI 47.8 BP 110/62 140/62 H Blood Pressure Location Lt brachial Rt brachial Position Sitting Sitting Respiration 12 14 Pulse 84 76 Pulse Source Pulse Oximeter Pulse Oximeter Pulse Oximetry (%) 94 94 Oxygen Delivery Method Room Air Room Air Comment Post-Op Intake Visit Reasons: BILATERAL DIAGNOSTIC L3, L4, DRL5 MBB Allergies Penicillins Allergy (Unknown, Verified 10/29/23 13:52) Swelling Sulfa (Sulfonamide Antibiotics) Allergy (Unknown, Verified 10/29/23 13:52) [facility] Medical History Diabetes Social History Alcohol intake: never Physical Exam Vital Signs: Last Vital Signs Pulse 76 10/29/23 13:50 Resp 14 10/29/23 13:50 BP 140/62 H 10/29/23 13:50 Pulse Ox 94 10/29/23 13:50 Oxygen Delivery Method Room Air 10/29/23 13:50 BMI result Body Mass Index 47.8 Assessment & Plan Assessment & Plan (1) Spondylosis of lumbar region without myelopathy or radiculopathy: Code(s): M47.816 - Spondylosis without myelopathy or radiculopathy, lumbar region Plan: Diagnostic medial branch block L3-L4 does ramus L5 bilateral. Informed consent was explained to the patient. All questions were explained and? answered.? The patient was taken inside the operating room where she was positioned prone on the operating table.? Time-out was performed delineating correct site, side, the nature of the procedure, patient's allergy, preoperative antibiotic if needed.? All operating room staff was participating in OR time-out procedure. The lower back was prepped with ChloraPrep and draped with sterile towels.? Sterilely draped C-arm was brought over the operating field and sq picture of L4-and L5 vertebra and S1 AREA were delineated on the screen.? Point of interest were delineated as connection of superior articular process of L4 and L5 vertebra bilaterally with corresponding transverse processes as well as connection of the sacral alae bilaterally with superior articular process of S1.? The projection of the point of interest to the skin were injected with the small amount of local anesthetic lidocaine 2% 1-1.5 cc.? After that 22 gauge 5 inch spinal needle was driven sequentially to the points of interest in tunnel vision fashion. After needles gently contacted the bone at the point of interests the needle was injected with small amount of the contrast.? The injection of the contrast did not demonstrate any intravascular or intrathecal spread of the contrast.? After that injection of the?ropivacaine 0.5%-1cc was performed at each needle location.? Upon completion of the injections? needle was? removed and sterile Band-Aids were applied.? The? patient was taken outside of the operating room to recovery room where she recovered uneventfully.? The patient went home without immediate complications. (2) Chronic pain syndrome: Code(s): G89.4 - Chronic pain syndrome (3) Mononeuropathy, unspecified: Code(s): G58.9 - Mononeuropathy, unspecified Plan Rodolfo went for physical therapy less than 5 months ago and he reported no improvement of his pain. I sent him for the x-ray and results of the x-ray d ictated as above. I offered him diagnostic medial branch block L3-L4 dorsal ramus L5 bilateral in the attempt to alleviate and diagnose his pain. Risks and benefits explained. All questions were answered. 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 If if the injection in the lumbar spine will not be working for him than before previously planned cluneal nerve injection I will try left sacroiliac joint injection. I will see this patient in the office after the performed injection. him. To help him with his pain I will start him on small dose baclofen muscle relaxants. Orders: Orders FL guidance in treatment room 10/29/23 M47.816 - Spondylosis without myelopathy or radiculopathy, lumbar region Coding Level of Care Code Procedure Only Diagnoses Spondylosis of lumbar region without myelopathy or radiculopathy M47.816 Chronic pain syndrome G89.4 Mononeuropathy, unspecified G58.9
[2023-10-29 13:50] VITALS: BP 140/62; PULSE 76; RESP 14; O2SAT 94; BMI 47.8
== END 2023-10-29 13:55 | disposition home or self-care (01) ==
LOC: HO.PMCPRC 13:00
PROVIDERS: PCP Family Medicine; Visit Provider Anesthesiology
DX: M47.816 Spondylosis without myelopathy or radiculopathy, lumbar region (principal); G89.4 Chronic pain syndrome; G58.9 Mononeuropathy, unspecified
CPT/HCPCS: 64493; 64494

== ENCOUNTER 2023-10-31 13:05 | Outpatient (AMB) | payer OTHER, SELFPAY ==
--- NOTE | 2023-10-31 13:10 | MHC.OFFVIS ---
Intake Vital Signs 10/31/23 13:17 Height 5 ft 6 in Weight 296 lb BMI 47.8 BP 124/62 Blood Pressure Location Lt brachial Position Sitting Respiration 16 Pulse 77 Pulse Source Pulse Oximeter Pulse Oximetry (%) 94 Oxygen Delivery Method Room Air Intake Visit Reasons: BILATERAL DIAGNOSTIC L3,L4 DRL5 MBB Intake Note: Patient comes in for post-op appointment. Reports pain 8/10. Allergies Penicillins Allergy (Unknown, Verified 10/31/23 13:17) Swelling Sulfa (Sulfonamide Antibiotics) Allergy (Unknown, Verified 10/31/23 13:17) Swelling HPI HPI Comments History of Present Illness Details Rodolfo is back in my office after diagnostic medial branch block L3-L4 dorsal ramus L5 bilateral which was done on 10/29/2023. The patient did not fill up pain diary. He stated that pain diary was not given to him. I have doubts about this. I also asked him about his condition after the injection. He reported pain 8/10 immediately after the injection. He reported that after the procedure he went home and went to sleep. So we lost 4 hours for the observation due to his sleep. Unfortunately after he wake-up his pain was back as it was before the procedure. 8/10. As I was discussing with him before I will schedule him for left sacroiliac joint injection and left cluneal nerve injection. Those procedures will be done in sequence. The patient will be given this time pain diary. And he will be instructed no to go to sleep immediately after the procedure. Sacroiliac joint on the left was found to be degenerative as well as widespread degeneration of the lumbar spine. I offered him L3-L4 does ramus L5 bilateral MBB diagnostic 1st. On my initial exam I was thinking about left cluneal nerve injection, however now I am thinking about sacroiliac joint injection 1st although patient's Jordan test is negative on the physical exam. Prior: very pleasant 77 years old gentleman who presents in my office with complains on pain in the lower back more to the left side. He reported the pain started approximately 3 years ago. He denies inciting events. He reports that standing hurts more than sitting sitting and laying down he experiences no pain. He reports that he can not do daily activities because of his pain, he can not take care of himself but he can not function normally. He had physical therapy April 2023 he had 12 sessions unfortunately it did not help his pain. His past medical history significant for diabetes. He had obesity surgery of unknown nature, I suspect it was gastric banding because of him saying that it was removed after it was not effective for his weight control. He never received any injections. [facility] Medical History Diabetes Social History Alcohol intake: never Review of Systems Const All systems reviewed & are unremarkable except as noted in HPI and below ENT Reports Normal hearing present Neuro Reports Normal hearing present, Denies Abnormal speech present, Denies confusion and Denies Sensory deficit (Neuro) Psych Denies confusion Physical Exam Vital Signs: Last Vital Signs Pulse 77 10/31/23 13:17 Resp 16 10/31/23 13:17 BP 124/62 10/31/23 13:17 Pulse Ox 94 10/31/23 13:17 Oxygen Delivery Method Room Air 10/31/23 13:17 BMI result Body Mass Index 47.8 Const General: No confusion Nutritional Appearance: obese morbidly obese Orientation/consciousness: No confusion Eyes General: appearance normal, both eyes and all related structures Pupils: Equal, round and reactive pupils present EOM: EOMs intact bilaterally Neck Neck: Yes full ROM Chest Chest palpation & inspection: normal inspection of the chest Resp Effort & Inspection: normal respiratory effort, able to speak in complete sentences, normal respiratory pattern, no audible wheezes and no cough Cardio Jugular venous distension: no JVD GI Inspection: Yes normal to inspection Back/Spine/Pelvis Other: Able to stand on bilateral tiptoes in bilateral heels without difficulty. Able to lift great toe in separation of the rest of the toes. Denies numbness and weakness on bilateral lower extremities. Denies Valsalva maneuver aggravating his pain. Denies pelvic organ dysfunction. SLR is negative for pain increase.Lassegue test is negative for pain increase. Jordan test is negative for pain increase. No tenderness on palpation in paraspinal spinal region of the lumbar spine reports most of the tenderness on palpation in the projection of the left iliac crest. Loading test is negative bilaterally. Neuro General: No confusion Cranial nerves: Yes Equal, round and reactive pupils present and Yes Normal hearing present Speech: No Abnormal speech present Gait exam (Neuro): Normal gait present Motor exam (neuro): 5/5 motor strength present throughout Sensory Exam: No Sensory deficit (Neuro) Extrem General: No pedal edema Psych Speech and movement: Normal speech and movement present Affect: normal affect Attitude: cooperative Thought process: Normal thought process present Thought content: Normal thought content present Insight: Good insight present (Psych) Judgement: Good judgement present (Psych) Results Reviewed Results Reviewed: XR LUMBOSACRAL SPINE FINDINGS: The bones are diffusely demineralized. Degenerative changes in the imaged lower thoracic spine. Atherosclerotic aortoiliac calcifications. Degenerative changes in the imaged left sacroiliac joint. Facet arthritis in the [id number] lumbar spine. Multilevel lumbar spondylosis with advanced degenerative changes and loss of disc space height at L5-S1. XR/XR lumbar spine 2-3V IMPRESSION: Multilevel lumbar spondylosis with advanced degenerative changes and loss of disc space height at L5-S1. Assessment & Plan Assessment & Plan (1) Spondylosis of lumbar region without myelopathy or radiculopathy: Code(s): M47.816 - Spondylosis without myelopathy or radiculopathy, lumbar region (2) Chronic pain syndrome: Code(s): G89.4 - Chronic pain syndrome (3) Mononeuropathy, unspecified: Code(s): G58.9 - Mononeuropathy, unspecified (4) Sacroiliitis: Code(s): M46.1 - Sacroiliitis, not elsewhere classified (5) Sacroiliac joint dysfunction of left side: Code(s): M53.3 - Sacrococcygeal disorders, not elsewhere classified Plan Rodolfo went for physical therapy less than 5 months ago and he reported no improvement of his pain. I sent him for the x-ray and results of the x-ray dictated as above. Diagnostic medial branch block resulted in no pain improvement. X-ray is positive for left SI joint pathology. This is according to the patient however his spent 4 hours sleeping 1 hour after the procedure so most crucial time was lost for observation. Nevertheless I believe that if he would have significant pathology in the facets of the lower lumbar spine he would notice pain improvement. I would like to address next time his pain with 2 injections. First of all I will schedule him for left sacroiliac joint injection. After that if sacroiliac joint injection will not help I will schedule him for the left cluneal diagnostic injection because he reported tenderness on palpation in projection of the left iliac crest. Coding Level of Care Code Est Pt Level 3 (76359) Diagnoses Spondylosis of lumbar region without myelopathy or radiculopathy M47.816 Chronic pain syndrome G89.4 Mononeuropathy, unspecified G58.9 Sacroiliitis M46.1 Sacroiliac joint dysfunction of left side M53.3
[2023-10-31 13:17] VITALS: BP 124/62; PULSE 77; RESP 16; O2SAT 94; BMI 47.8
== END 2023-10-31 13:48 | disposition home or self-care (01) ==
PROVIDERS: PCP Family Medicine; Visit Provider Anesthesiology
DX: M47.816 Spondylosis without myelopathy or radiculopathy, lumbar region (principal); G89.4 Chronic pain syndrome; G58.9 Mononeuropathy, unspecified; M46.1 Sacroiliitis, not elsewhere classified; M53.3 Sacrococcygeal disorders, not elsewhere classified
CPT/HCPCS: 99213

== ENCOUNTER → 2023-10-31 13:05 | Outpatient (BNVA) | payer OTHER, SELFPAY | PROVIDERS: PCP Family Medicine; Visit Provider Anesthesiology | DX: M47.816 Spondylosis without myelopathy or radiculopathy, lumbar region (principal); M46.1 Sacroiliitis, not elsewhere classified; M53.3 Sacrococcygeal disorders, not elsewhere classified; G89.4 Chronic pain syndrome; G58.9 Mononeuropathy, unspecified | CPT/HCPCS: 99212 ==

== ENCOUNTER 2023-11-26 06:09 | Outpatient (REF) | payer OTHER, SELFPAY ==
--- NOTE | ~2023-11-26 | FL_ITS ---
EXAMINATION: XR FLUOROSCOPY WITH IMAGES CLINICAL INFORMATION: Sacrococcygeal disorders. COMPARISON: None available. TECHNIQUE: Fluoroscopy Supervised By: Dr. Urbano. Fluoroscopy Time: 0.2 min. Cumulative Dose: 6.39 mGy. DAP: 0.111 Gycm2. Images: 2. FINDINGS: Intraoperative fluoroscopy and spot films were performed during a procedure in the OR. 2 images showing needle in the left SI joint with surrounding contrast. Please see Dr. Urbano's report for complete details. FL/FL guidance in treatment room IMPRESSION: Intraoperative fluoroscopy and spot films were obtained. Please see Dr. Urbano's report for complete details.
== END 2023-11-26 06:10 | disposition home or self-care (01) ==
LOC: CF 06:09
PROVIDERS: Visit Provider Anesthesiology
DX: M53.3 Sacrococcygeal disorders, not elsewhere classified (principal); M47.816 Spondylosis without myelopathy or radiculopathy, lumbar region; G89.4 Chronic pain syndrome; G58.9 Mononeuropathy, unspecified; M46.1 Sacroiliitis, not elsewhere classified
CPT/HCPCS: 27096; J2795; Q9967

== ENCOUNTER 2023-11-26 09:22 | Outpatient (AMB) | payer OTHER, SELFPAY ==
--- NOTE | 2023-11-26 09:28 | MHC.OFFVIS ---
Vital Signs 11/26/23 09:55 11/26/23 09:56 Height 5 ft 6 in Weight 296 lb BMI 47.8 BP 122/60 124/68 Blood Pressure Location Lt brachial Lt brachial Position Sitting Sitting Respiration 18 16 Pulse 87 88 Pulse Source Pulse Oximeter Pulse Oximeter Pulse Oximetry (%) 94 97 Oxygen Delivery Method Room Air Room Air Comment Pre-Op Post-Op Intake Visit Reasons: LEFT DIAGNOSTIC SIJ INJECTION Allergies Penicillins Allergy (Unknown, Verified 10/31/23 13:17) Swelling Sulfa (Sulfonamide Antibiotics) Allergy (Unknown, Verified 10/31/23 13:17) Swelling PFSH Medical History Diabetes Social History Alcohol intake: never Physical Exam Vital Signs: Last Vital Signs Pulse 88 11/26/23 09:56 Resp 16 11/26/23 09:56 BP 124/68 11/26/23 09:56 Pulse Ox 97 11/26/23 09:56 Oxygen Delivery Method Room Air 11/26/23 09:56 BMI result Body Mass Index 47.8 Assessment & Plan Assessment & Plan (1) Spondylosis of lumbar region without myelopathy or radiculopathy: Code(s): M47.816 - Spondylosis without myelopathy or radiculopathy, lumbar region Category: Medical (2) Chronic pain syndrome: Code(s): G89.4 - Chronic pain syndrome Category: Medical (3) Mononeuropathy, unspecified: Code(s): G58.9 - Mononeuropathy, unspecified Category: Medical (4) Sacroiliitis: Code(s): M46.1 - Sacroiliitis, not elsewhere classified Category: Medical (5) Sacroiliac joint dysfunction of left side: Code(s): M53.3 - Sacrococcygeal disorders, not elsewhere classified Category: Medical Plan: Left diagnostic sacroiliac joint injection Informed consent was explained thoroughly to the patient. All questions about benefits and risks for the procedure were answered. Patient came to the operating room and was positioned prone on the operating table with the pillow under the pelvis. Time out was performed delineating name and of the patient, allergies and the nature of the procedure. The lower back and buttocks of the patient were prepped with ChloraPrep prepped and draped with sterile utility towels. C-arm was brought over the operating field and sq picture of patient's pelvis was demonstrated on the screen. For the left joint tilting C-arm contralateral to the site of the joint the most posterior portion of the joints was superimposed with anterior silhouette of the joint. Skin was injected in the projection of the joint slightly medial to the location of the joint with 25 gauge 1/2 inch needle using local lidocaine 2% .After that 22 gauge 3 and 1/2 inch needle was driven to the right joint in tunnel vision fashion. When needle entered the joint capsule injection of the contrast was performed demonstrating intra-articular and minimally periarticular spread of the contrast. After that 4 cc. of ropivacaine 0.5% was injected into the joint. Upon completion of the injections the needle was removed Sterile dressing was applied. Upon completion of the injection patient was taken outside of the operating room to the recovery room where recovered uneventfully. Plan Rodolfo went for physical therapy less than 5 months ago and he reported no improvement of his pain. I sent him for the x-ray and results of the x-ray dictated as above. Diagnostic medial branch block resulted in no pain improvement. X-ray is positive for left SI joint pathology. This is according to the patient however his spent 4 hours sleeping 1 hour after the procedure so most crucial time was lost for observation. Nevertheless I believe that if he would have significant pathology in the facets of the lower lumbar spine he would notice pain improvement. I would like to address next time his pain with 2 injections. First of all I will schedule him for left sacroiliac joint injection. After that if sacroiliac joint injection will not help I will schedule him for the left cluneal diagnostic injection because he reported tenderness on palpation in projection of the left iliac crest. Orders: Orders FL guidance in treatment room Today M53.3 - Sacrococcygeal disorders, not elsewhere classified Coding Level of Care Code Procedure Only Diagnoses Spondylosis of lumbar region without myelopathy or radiculopathy M47.816 Chronic pain syndrome G89.4 Mononeuropathy, unspecified G58.9 Sacroiliitis M46.1 Sacroiliac joint dysfunction of left side M53.3
[2023-11-26 09:55] VITALS: BP 122/60; PULSE 87; RESP 18; O2SAT 94; BMI 47.8
[2023-11-26 09:56] VITALS: BP 124/68; PULSE 88; RESP 16; O2SAT 97
== END 2023-11-26 09:47 | disposition home or self-care (01) ==
LOC: HO.PMCPRC 09:22
PROVIDERS: PCP Family Medicine; Visit Provider Anesthesiology
DX: M46.1 Sacroiliitis, not elsewhere classified (principal); M53.3 Sacrococcygeal disorders, not elsewhere classified
CPT/HCPCS: 27096

== ENCOUNTER 2023-12-02 09:28 | Outpatient (AMB) | payer OTHER, SELFPAY ==
--- NOTE | 2023-12-02 09:30 | MHC.OFFVIS ---
Vital Signs 12/02/23 09:41 Height 5 ft 6 in Weight 290 lb 6 oz BMI 46.9 BP 138/78 Blood Pressure Location Lt brachial Position Sitting Respiration 16 Pulse 70 Pulse Source Pulse Oximeter Pulse Oximetry (%) 93 Oxygen Delivery Method Room Air Intake Visit Reasons: LEFT DIAGNOSTIC SIJ INJECTION Intake Note: Patient comes in for post-op appointment. Allergies Penicillins Allergy (Unknown, Verified 12/02/23 09:43) Swelling Sulfa (Sulfonamide Antibiotics) Allergy (Unknown, Verified 12/02/23 09:43) Swelling HPI Comments Details: Rodolfo is back in my office after diagnostic sacroiliac joint injection. He reports no pain relief after the procedure. Before that he had diagnostic medial branch block which also did not help him much. He fell asleep after the procedure and the results therefore were inconclusive. He reports that he had MRI lumbar spine 5 years ago. I decided to send him for the MRI of the lumbar spine to reassess his lumbar spine conditions. I recommended him to get a copy of the disc of the MRI which was done 5 years ago on him and bring it with him for the office of our MRI for comparison. I was considering in the past performing cluneal nerve block on the left diagnostic. Schedule him for this procedure. He wants this to be done under sedation. Prior: very pleasant 77 years old gentleman who presents in my office with complains on pain in the lower back more to the left side. He reported the pain started approximately 3 years ago. He denies inciting events. He reports that standing hurts more than sitting sitting and laying down he experiences no pain. He reports that he can not do daily activities because of his pain, he can not take care of himself but he can not function normally. He had physical therapy April 2023 he had 12 sessions unfortunately it did not help his pain. His past medical history significant for diabetes. He had obesity surgery of unknown nature, I suspect it was gastric banding because of him saying that it was removed after it was not effective for his weight control. He never received any injections. [facility] Medical History Diabetes Social History Alcohol intake: never Review of Systems Const All systems reviewed & are unremarkable except as noted in HPI and below ENT Reports Normal hearing present Neuro Reports Normal hearing present, Denies Abnormal speech present, Denies confusion and Denies Sensory deficit (Neuro) Psych Denies confusion Physical Exam Vital Signs: Last Vital Signs Pulse 70 12/02/23 09:41 Resp 16 12/02/23 09:41 BP 138/78 12/02/23 09:41 Pulse Ox 93 12/02/23 09:41 Oxygen Delivery Method Room Air 12/02/23 09:41 BMI result Body Mass Index 46.9 Const General: No confusion Nutritional Appearance: obese morbidly obese Orientation/consciousness: No confusion Eyes General: appearance normal, both eyes and all related structures Pupils: Equal, round and reactive pupils present EOM: EOMs intact bilaterally Neck Neck: Yes full ROM Chest Chest palpation & inspection: normal inspection of the chest Resp Effort & Inspection: normal respiratory effort, able to speak in complete sentences, normal respiratory pattern, no audible wheezes and no cough Cardio Jugular venous distension: no JVD GI Inspection: Yes normal to inspection Back/Spine/Pelvis Other: Able to stand on bilateral tiptoes in bilateral heels without difficulty. Able to lift great toe in separation of the rest of the toes. Denies numbness and weakness on bilateral lower extremities. Denies Valsalva maneuver aggravating his pain. Denies pelvic organ dysfunction. SLR is negative for pain increase.Lassegue test is negative for pain increase. Jordan test is negative for pain increase. No tenderness on palpation in paraspinal spinal region of the lumbar spine reports most of the tenderness on palpation in the projection of the left iliac crest. Loading test is negative bilaterally. Neuro General: No confusion Cranial nerves: Yes Equal, round and reactive pupils present and Yes Normal hearing present Speech: No Abnormal speech present Gait exam (Neuro): Normal gait present Motor exam (neuro): 5/5 motor strength present throughout Sensory Exam: No Sensory deficit (Neuro) Extrem General: No pedal edema Psych Speech and movement: Normal speech and movement present Affect: normal affect Attitude: cooperative Thought process: Normal thought process present Thought content: Normal thought content present Insight: Good insight present (Psych) Judgement: Good judgement present (Psych) Results Reviewed Results Reviewed: XR LUMBOSACRAL SPINE FINDINGS: The bones are diffusely demineralized. Degenerative changes in the imaged lower thoracic spine. Atherosclerotic aortoiliac calcifications. Degenerative changes in the imaged left sacroiliac joint. Facet arthritis in the [id number] lumbar spine. Multilevel lumbar spondylosis with advanced degenerative changes and loss of disc space height at L5-S1. XR/XR lumbar spine 2-3V IMPRESSION: Multilevel lumbar spondylosis with advanced degenerative changes and loss of disc space height at L5-S1. Assessment & Plan Assessment & Plan (1) Spondylosis of lumbar region without myelopathy or radiculopathy: Code(s): M47.816 - Spondylosis without myelopathy or radiculopathy, lumbar region Category: Medical (2) Chronic pain syndrome: Code(s): G89.4 - Chronic pain syndrome Category: Medical (3) Mononeuropathy, unspecified: Code(s): G58.9 - Mononeuropathy, unspecified Category: Medical (4) Sacroiliitis: Code(s): M46.1 - Sacroiliitis, not elsewhere classified Category: Medical (5) Sacroiliac joint dysfunction of left side: Code(s): M53.3 - Sacrococcygeal disorders, not elsewhere classified Category: Medical (6) Mononeuropathy, unspecified: Code(s): G58.9 - Mononeuropathy, unspecified Category: Medical Plan Rodolfo went for physical therapy less than 5 months ago and he reported no improvement of his pain. I sent him for the x-ray and results of the x-ray dictated as above. Diagnostic medial branch block resulted in no pain improvement. X-ray is positive for left SI joint pathology. However the diagnostic SI joint injection resulted in very minimal if any pain improvement. I offered him today to try diagnostic cluneal nerve block on the left. Patient agreed to go for this procedure. He wants me to do this procedure under sedation. I agreed. Meanwhile I will schedule him for MRI of the lumbar spine. He is recommended to obtain old MRI disc and bring it with him for MRI for comparison. Orders: Orders MR lumbar spine wo con Today M47.816 - Spondylosis without myelopathy or radiculopathy, lumbar region Coding Level of Care Code Est Pt Level 3 (30457) Diagnoses Spondylosis of lumbar region without myelopathy or radiculopathy M47.816 Chronic pain syndrome G89.4 Mononeuropathy, unspecified G58.9 Sacroiliitis M46.1 Sacroiliac joint dysfunction of left side M53.3
[2023-12-02 09:41] VITALS: BP 138/78; PULSE 70; RESP 16; O2SAT 93; BMI 46.9
== END 2023-12-02 10:02 | disposition home or self-care (01) ==
PROVIDERS: PCP Family Medicine; Visit Provider Anesthesiology
DX: M47.816 Spondylosis without myelopathy or radiculopathy, lumbar region (principal); G89.4 Chronic pain syndrome; G58.9 Mononeuropathy, unspecified; M46.1 Sacroiliitis, not elsewhere classified; M53.3 Sacrococcygeal disorders, not elsewhere classified
CPT/HCPCS: 99213

== ENCOUNTER → 2023-12-02 09:28 | Outpatient (BNVA) | payer OTHER, SELFPAY | PROVIDERS: PCP Family Medicine; Visit Provider Anesthesiology | DX: M47.816 Spondylosis without myelopathy or radiculopathy, lumbar region (principal); M46.1 Sacroiliitis, not elsewhere classified; M53.3 Sacrococcygeal disorders, not elsewhere classified; G89.4 Chronic pain syndrome; G58.9 Mononeuropathy, unspecified | CPT/HCPCS: 99212 ==

== ENCOUNTER 2024-01-10 11:08 | Day surgery (SDC) | payer OTHER, SELFPAY ==
--- NOTE | 2024-01-08 10:44 | HO.ANESPROP2 ---
Documented by User: Oksana Meyer NP 01/09/24 12:39 HPI - Anesthesia Eval Consult details Narrative: 78yo M for Left Cluneal Nerve Block BMI = 47 PMFSH Active Problems Active Problems: All Active Problems Mononeuropathy, unspecified (Acute) Sacroiliac joint dysfunction of left side (Acute) Sacroiliitis (Acute) Mononeuropathy, unspecified (Acute) Chronic pain syndrome (Acute) Spondylosis of lumbar region without myelopathy or radiculopathy (Acute) Past Medical History Medical History (Updated 01/10/24 @ 11:54 by Namrata Dunn RN) Low back pain BPV (benign positional vertigo) ANKIT (obstructive sleep apnea) Depression Obesity Diabetes Surgical History Surgical History Hx of laparoscopic gastric banding Hx of cholecystectomy Social History Social History Alcohol intake: never Patient Tobacco Use Status: Never used Tobacco Use of substances other than those prescribed or required for medical reasons: No Are you DNR?: No Advance Directives: No Advance Directives Information Provided: Yes Meds Allergies Allergy/AdvReac Type Severity Reaction Status Date / Time Penicillins Allergy Unknown Swelling Verified 01/10/24 11:44 Sulfa (Sulfonamide Allergy Unknown Swelling Verified 01/10/24 11:44 Antibiotics) Home Medications ?Medication ?Instructions ?Recorded ?Confirmed ?Last Taken ?Type aspirin 81 mg tablet,delayed 1 tab PO DAILY 05/23/20 05/23/20 01/09/24 History release atorvastatin 40 mg tablet 1 tab PO DAILY 05/23/20 05/23/20 Unknown History metformin 500 mg tablet 2 tab PO BID 05/23/20 05/23/20 01/10/24 08:00 History metoprolol succinate 25 mg 1 tab PO DAILY 05/23/20 05/23/20 Unknown History tablet,extended release 24 hr empagliflozin 10 mg tablet 10 mg PO DAILY 10/29/23 01/07/24 History (Jardiance) insulin lispro 100 unit/mL subcut 10/29/23 Unknown History subcutaneous pen (Humalog KwikPen (U-100) Insulin) tirzepatide 12.5 mg/0.5 mL mg subcut 01/08/24 01/08/24 01/02/24 History subcutaneous pen injector (Mounjaro) Assessment and Plan Assessment Anesthesia Assessment: Chart Reviewed Documented by User: Jey Gomez MD 01/10/24 13:23 [facility] Past Medical History Medical History (Updated 01/10/24 @ 11:54 by Namrata Dunn RN) Low back pain BPV (benign positional vertigo) ANKIT (obstructive sleep apnea) Depression Obesity Diabetes Family History Family history of problems with anesthesia: No Surgical History Surgical History Hx of laparoscopic gastric banding Hx of cholecystectomy History of Problems with Anesthesia: No Social History Social History Alcohol intake: never Patient Tobacco Use Status: Never used Tobacco Use of substances other than those prescribed or required for medical reasons: No Are you DNR?: No Advance Directives: No Advance Directives Information Provided: Yes Meds Allergies Allergy/AdvReac Type Severity Reaction Status Date / Time Penicillins Allergy Unknown Swelling Verified 01/10/24 11:44 Sulfa (Sulfonamide Allergy Unknown Swelling Verified 01/10/24 11:44 Antibiotics) Home Medications ?Medication ?Instructions ?Recorded ?Confirmed ?Last Taken ?Type aspirin 81 mg tablet,delayed 1 tab PO DAILY 05/23/20 05/23/20 01/09/24 History release atorvastatin 40 mg tablet 1 tab PO DAILY 05/23/20 05/23/20 Unknown History metformin 500 mg tablet 2 tab PO BID 05/23/20 05/23/20 01/10/24 08:00 History metoprolol succinate 25 mg 1 tab PO DAILY 05/23/20 05/23/20 Unknown History tablet,extended release 24 hr empagliflozin 10 mg tablet 10 mg PO DAILY 10/29/23 01/07/24 History (Jardiance) insulin lispro 100 unit/mL subcut 10/29/23 Unknown History subcutaneous pen (Humalog KwikPen (U-100) Insulin) tirzepatide 12.5 mg/0.5 mL mg subcut 01/08/24 01/08/24 01/02/24 History subcutaneous pen injector (Arsalan) Exam Airway Mallampati Class: II TM Dist: <=3cm Neck ROM: Full Loose/Missing/Broken Teeth: Yes and Lower Heart: ok Lungs: ok Assessment and Plan Assessment Anesthesia Assessment: Anesthesia Plan Discussed Final Anesthetic Review Family History of Problems with Anesthesia: No History of Problems with Anesthesia: No NPO: Yes ASA Class: III Final Preanesthetic Review: No Changes in Pt Med Stat, Meds/Allgs Chart Reviewed, Consent Obtained/Reviewed and Anes Risks/Benef Reviewed Patient Risk: Intermediate Procedure Risk: Intermediate Anesthetic Plan Anesthetic Plan: MAC:, Agree w/ Assess. and Plan and TIVA Disposition: Standard PACU
--- NOTE | ~2024-01-10 | FL_ITS ---
EXAMINATION: XR FLUOROSCOPY WITH IMAGES CLINICAL INFORMATION: Cluneal nerve block. COMPARISON: None available. TECHNIQUE: Fluoroscopy Supervised By: Dr. Willam Urbano. Fluoroscopy Time: 45 seconds. Cumulative Dose: 28.413 mGy. DAP: 12.359 Gycm2. Images: 4. FINDINGS: Intraoperative fluoroscopy and spot films were performed during a procedure in the OR. 4 needles are seen overlying the region of the superior iliac crest on the left. Contrast media is seen injected around the needle tips. Please correlate with Dr. Willam Urbano's report for complete details. FL/FL guidance in OR IMPRESSION: Intraoperative fluoroscopy and spot films were obtained. Please see Dr. Willam Urbano's report for complete details.
[2024-01-10 12:06] VITALS: BP 145/87; PULSE 84; RESP 16; TEMP 36.1; O2SAT 94; BMI 44.5
[2024-01-10] MEDS: Lactated Ringers 1,000 ML 100 ML IVCONT (12:09)
[2024-01-10 12:26] LABS: Glucose, Whole Blood 89 mg/dL (60-115)
--- NOTE | 2024-01-10 12:55 | MHC.SHP ---
Pre-Procedural Eval Section A - 24 Hr Update-Section A only Date of Service: 01/10/24 The patient is an INPATIENT: No Changes since office visit: Yes Patient answered all questions The patient has been examined within 24 hours of the surgical procedure. The History & Physical has been completed within 30 days and I have reviewed it.: No Section B - Complete if H&P > 30 days Chief Complaint: Mononeuropathy, unspecified Details of Present Illness: As above Relevant Family History (Specify if Yes): No Relevant Social History: None Present Medications: see Short Stay Collaborative assessment Medical History: No relevant PMH History of Previous Operations: No relevant previous surgery Allergies: Allergies Allergy/AdvReac Type Severity Reaction Status Date / Time Penicillins Allergy Unknown Swelling Verified 01/10/24 11:44 Sulfa (Sulfonamide Allergy Unknown Swelling Verified 01/10/24 11:44 Antibiotics) Review of Systems Sugical H&P ROS: Negative: Cardiovascular, Respiratory, Neurological, Psychiatric, Hem-Onc, Allergic/Immunologic, Gastrointestinal, Genitourinary, Musculoskeletal, Integumentary, Endocrine and Eyes/Ears/Nose/Throat and Yes, Specify: Constitution (Morbid obesity) Exam Surgical H&P Exam: Normal: HEENT, Normal: Heart, Normal: Lungs, Normal: Extremities, Normal: Skin and Normal: Neurological and Significant Findings: Abdomen (Enlarged due to fat) Plan Diagnosis/Plan: Unchanged I have reviewed the history and physical and performed a pertinent physical examination on my patient. No changes have occurred unless specified. Time Spent With Patient Time: Total time managing care of this patient today __5__ minutes.
--- NOTE | 2024-01-10 14:18 | P.OP_ITS ---
Operative Note Operative Note Date of Service: 01/10/24 Narrative: Diagnostic cluneal nerve block on the left. Informed consent was thoroughly explained to the patient before moving him to the operating room.? Risks and benefits were explained and all the questions were answered. Patient ? was taken to the operating room, he was positioned prone on the operating table with the pillow under her pelvis.? [employer] monitors were applied and the patient was deeply sedated. Time out was performed delineated correct name and of the patient, site, side and nature of the procedure, risks of DVT and fire, need for antibiotics. he received 2.g of cefazolin approximately 25 minutes before the onset of the procedure. lower back and the left buttock were prepped with ChloraPrep twice, and draped with sterile towels.? Sterilely draped C-arm was brought over the operating field and sq picture of patient's pelvis was demonstrated on the screen.? Attention was concentrated on the left iliac crest. 22 gauge 5 in needles were sequentially inserted through the skin and they were driven to were the iliac crest starting from the very top of the iliac crest all the way to the sacral ala in sequential manner. When the tips of the needles gently contacted the bone injected with contrast was performed demonstrating no intravascular uptake of the contrast. After that less than 1 cc of ropivacaine 0.5% was injected into each needle positioned. Upon completion of the injections the needles were removed, sterile Band-Aids were applied. The patient tolerated procedure well.
--- NOTE | 2024-01-10 14:18 | PM.OP ---
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
[2024-01-10 14:22] VITALS: BP 131/77; PULSE 74; RESP 20; TEMP 36.6; O2SAT 91
[2024-01-10 14:41] VITALS: BP 125/81; PULSE 76; RESP 20; TEMP 36.4; O2SAT 94
== END 2024-01-10 15:16 | disposition home or self-care (01) ==
PROVIDERS: PCP Family Medicine; Visit Provider Anesthesiology
PROC: (CPT 64450; principal; 2024-01-10 12:50)
DX: G58.8 Other specified mononeuropathies (principal); M53.3 Sacrococcygeal disorders, not elsewhere classified; M46.1 Sacroiliitis, not elsewhere classified; M47.816 Spondylosis without myelopathy or radiculopathy, lumbar region; M54.50 Low back pain, unspecified; G89.4 Chronic pain syndrome; E11.9 Type 2 diabetes mellitus without complications; Z79.4 Long term (current) use of insulin; Z79.85 Long-term (current) use of injectable non-insulin antidiabetic drugs; Z79.899 Other long term (current) drug therapy; Z88.0 Allergy status to penicillin; Z88.2 Allergy status to sulfonamides
CPT/HCPCS: 64450; 82947; J2250; J2704; J2795; Q9967

== ENCOUNTER → 2024-01-10 11:08 | Outpatient (BNV) | payer OTHER, SELFPAY | PROVIDERS: PCP Family Medicine; Visit Provider Anesthesiology | DX: G58.9 Mononeuropathy, unspecified (principal) | CPT/HCPCS: 64450; 77002 ==

== ENCOUNTER 2024-01-16 13:15 | Outpatient (AMB) | payer OTHER, SELFPAY ==
--- NOTE | 2024-01-16 13:16 | MHC.OFFVIS ---
Vital Signs 01/16/24 13:23 Height 5 ft 8 in Weight 287 lb 4 oz BMI 43.7 BP 128/72 Blood Pressure Location Lt brachial Position Sitting Respiration 16 Pulse 93 Pulse Source Pulse Oximeter Pulse Oximetry (%) 93 Oxygen Delivery Method Room Air Intake Visit Reasons: S/p (L) Cluneal Nerve Block 01/10/24 Intake Note: Patient comes in for post-op appointment. Reports pain 8/10. Allergies Penicillins Allergy (Unknown, Verified 01/16/24 13:25) Swelling Sulfa (Sulfonamide Antibiotics) Allergy (Unknown, Verified 01/16/24 13:25) Swelling HPI Comments Details: Rodolfo is back in my office after diagnostic cluneal nerve block on the left. The patient reported today that he came home after the injection and went to bed, he did not perform most painful maneuvers which would aggravate her pain, he reported that the pain before the procedure was 4/10, the pain after the procedure was 0/10 however patient said that he was under anesthesia and he did not remember how it felt. 1 hour after the procedure the patient was again 0/10 with all limitations described above. 2 hours after the procedure 3 hours after the procedure and 4 hours after the procedure the patient's pain was 3/10, it is hard to assess what happened after that because patient was resting and not performing aggravating maneuvers and motions. The patient wants to go for 2nd opinion in [facility] he reports that there he will go for appointment with neurosurgeon as well as for the appointment with pain management physician. 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 The MRI is scheduled on February 17. Results of diagnostic sacroiliac joint injection: He reports no pain relief after the procedure. Before that he had diagnostic medial branch block which also did not help him much. He fell asleep after the procedure and the results therefore were inconclusive. He reports that he had MRI lumbar spine 5 years ago. I decided to send him for the MRI of the lumbar spine to reassess his lumbar spine conditions. Prior: very pleasant 77 years old gentleman who presents in my office with complains on pain in the lower back more to the left side. He reported the pain started approximately 3 years ago. He denies inciting events. He reports that standing hurts more than sitting sitting and laying down he experiences no pain. He reports that he can not do daily activities because of his pain, he can not take care of himself but he can not function normally. He had physical therapy April 2023 he had 12 sessions unfortunately it did not help his pain. His past medical history significant for diabetes. He had obesity surgery of unknown nature, I suspect it was gastric banding because of him saying that it was removed after it was not effective for his weight control. He never received any injections. [facility] Medical History (Updated 01/10/24 @ 11:54 by Namrata Dunn RN) Low back pain BPV (benign positional vertigo) ANKIT (obstructive sleep apnea) Depression Obesity Diabetes Surgical History Hx of laparoscopic gastric banding Hx of cholecystectomy Social History Alcohol intake: never Patient Tobacco Use Status: Never used Tobacco Review of Systems Const All systems reviewed & are unremarkable except as noted in HPI and below ENT Reports Normal hearing present Neuro Reports Normal hearing present, Denies Abnormal speech present, Denies confusion and Denies Sensory deficit (Neuro) Psych Denies confusion Physical Exam Vital Signs: Last Vital Signs Pulse 93 01/16/24 13:23 Resp 16 01/16/24 13:23 BP 128/72 01/16/24 13:23 Pulse Ox 93 01/16/24 13:23 Oxygen Delivery Method Room Air 01/16/24 13:23 BMI result Body Mass Index 43.7 Const General: No confusion Nutritional Appearance: obese morbidly obese Orientation/consciousness: No confusion Eyes General: appearance normal, both eyes and all related structures Pupils: Equal, round and reactive pupils present EOM: EOMs intact bilaterally Neck Neck: Yes full ROM Chest Chest palpation & inspection: normal inspection of the chest Resp Effort & Inspection: normal respiratory effort, able to speak in complete sentences, normal respiratory pattern, no audible wheezes and no cough Cardio Jugular venous distension: no JVD GI Inspection: Yes normal to inspection Back/Spine/Pelvis Other: Able to stand on bilateral tiptoes in bilateral heels without difficulty. Able to lift great toe in separation of the rest of the toes. Denies numbness and weakness on bilateral lower extremities. Denies Valsalva maneuver aggravating his pain. Denies pelvic organ dysfunction. SLR is negative for pain increase.Lassegue test is negative for pain increase. Jordan test is negative for pain increase. No tenderness on palpation in paraspinal spinal region of the lumbar spine reports most of the tenderness on palpation in the projection of the left iliac crest. Loading test is negative bilaterally. Neuro General: No confusion Cranial nerves: Yes Equal, round and reactive pupils present and Yes Normal hearing present Speech: No Abnormal speech present Gait exam (Neuro): Normal gait present Motor exam (neuro): 5/5 motor strength present throughout Sensory Exam: No Sensory deficit (Neuro) Extrem General: No pedal edema Psych Speech and movement: Normal speech and movement present Affect: normal affect Attitude: cooperative Thought process: Normal thought process present Thought content: Normal thought content present Insight: Good insight present (Psych) Judgement: Good judgement present (Psych) Results Reviewed Results Reviewed: XR LUMBOSACRAL SPINE FINDINGS: The bones are diffusely demineralized. Degenerative changes in the imaged lower thoracic spine. Atherosclerotic aortoiliac calcifications. Degenerative changes in the imaged left sacroiliac joint. Facet arthritis in the [id number] lumbar spine. Multilevel lumbar spondylosis with advanced degenerative changes and loss of disc space height at L5-S1. XR/XR lumbar spine 2-3V IMPRESSION: Multilevel lumbar spondylosis with advanced degenerative changes and loss of disc space height at L5-S1. Assessment & Plan Assessment & Plan (1) Spondylosis of lumbar region without myelopathy or radiculopathy: Code(s): M47.816 - Spondylosis without myelopathy or radiculopathy, lumbar region Category: Medical (2) Chronic pain syndrome: Code(s): G89.4 - Chronic pain syndrome Category: Medical (3) Mononeuropathy, unspecified: Code(s): G58.9 - Mononeuropathy, unspecified Category: Medical (4) Sacroiliitis: Code(s): M46.1 - Sacroiliitis, not elsewhere classified Category: Medical (5) Sacroiliac joint dysfunction of left side: Code(s): M53.3 - Sacrococcygeal disorders, not elsewhere classified Category: Medical (6) Mononeuropathy, unspecified: Code(s): G58.9 - Mononeuropathy, unspecified Category: Medical Plan Rodolfo went for physical therapy less than 5 months ago and he reported no improvement of his pain. I sent him for the x-ray and results of the x-ray dictated as above. Diagnostic medial branch block resulted in no pain improvement. X-ray is positive for left SI joint pathology. However the diagnostic SI joint injection resulted in very minimal if any pain improvement. Diagnostic cluneal nerve block also nonconclusive as described above. MRI for lumbar spine scheduled on 02/18/2024. I would like to see the MRI on the day of the issue. The patient is recommended to obtain a copy of this MRI on the disc and present the disc for evaluation on his 2nd opinion appointment with a pain specialist and a neurosurgeon in [facility]. Patient Instructions: I here by testify that I spent 35 minutes in conversation with this patient as well as evaluating his prior records, planning his care, organizing this note. Coding Level of Care Code Est Pt Level 4 (94760) Diagnoses Spondylosis of lumbar region without myelopathy or radiculopathy M47.816 Chronic pain syndrome G89.4 Mononeuropathy, unspecified G58.9 Sacroiliitis M46.1 Sacroiliac joint dysfunction of left side M53.3
[2024-01-16 13:23] VITALS: BP 128/72; PULSE 93; RESP 16; O2SAT 93; BMI 43.7
== END 2024-01-16 13:41 | disposition home or self-care (01) ==
PROVIDERS: PCP Family Medicine; Visit Provider Anesthesiology
DX: M47.816 Spondylosis without myelopathy or radiculopathy, lumbar region (principal); G89.4 Chronic pain syndrome; G58.9 Mononeuropathy, unspecified; M46.1 Sacroiliitis, not elsewhere classified; M53.3 Sacrococcygeal disorders, not elsewhere classified
CPT/HCPCS: 99214

== ENCOUNTER → 2024-01-16 13:15 | Outpatient (BNVA) | payer OTHER, SELFPAY | PROVIDERS: PCP Family Medicine; Visit Provider Anesthesiology | DX: M47.816 Spondylosis without myelopathy or radiculopathy, lumbar region (principal); M53.3 Sacrococcygeal disorders, not elsewhere classified; M46.1 Sacroiliitis, not elsewhere classified; G89.4 Chronic pain syndrome; G58.9 Mononeuropathy, unspecified | CPT/HCPCS: 99212 ==

== ENCOUNTER 2024-02-18 10:14 | Outpatient (REF) | payer OTHER, SELFPAY ==
--- NOTE | ~2024-02-18 | MR_ITS ---
EXAMINATION: MR LUMBAR SPINE WITHOUT CONTRAST CLINICAL INFORMATION: Spondylosis. Low back pain. Difficulty standing. COMPARISON: Lumbar spine radiographs 09/19/2023. TECHNIQUE: MRI of the lumbar spine was obtained using routine sequences without contrast. FINDINGS: The patient was unable to tolerate this examination and it was terminated prematurely. Only sagittal T2 and axial T1 images were obtained. The diagnostic accuracy of this examination is therefore significantly limited. Alignment is normal. The body heights are preserved. No acute bone marrow signal changes. There is slight loss of intervertebral disc height and T2 signal intensity at L1-L2 and L5-S1. Disc desiccation at multiple additional levels. The tip of the conus medullaris is located at L1-L2. No mass effect on the conus. Visualized distal cord signal intensity is normal. There is disc osteophyte spurring in conjunction with facet degenerative change at L5-S1 causing partial effacement of the perineal fat however no overt compression of the left L5 nerve root. Otherwise no neuroforaminal compromise within the lumbar spine. No canal stenosis. Limited visualization of the retroperitoneal anatomy reveals no abnormal findings. Psoas and paraspinal muscle groups are symmetric. MR/MR lumbar spine wo con IMPRESSION: The patient was unable to tolerate this examination and it was terminated prematurely. Only sagittal T2 and axial T1 images were obtained. The diagnostic accuracy of this examination is therefore significantly limited. There is disc osteophyte spurring in conjunction with facet degenerative change at L5-S1 causing partial effacement of the perineal fat however no overt compression of the left L5 foraminal nerve root. No neuroforaminal compromise elsewhere within the lumbar spine. No canal stenosis. Electronically signed by: Douglas Fisher MD 03/17/2024 05:34 PM EDT
== END 2024-02-18 10:15 | disposition home or self-care (01) ==
LOC: HO.MRI 10:14
PROVIDERS: PCP Family Medicine; Visit Provider Anesthesiology
DX: M47.816 Spondylosis without myelopathy or radiculopathy, lumbar region (principal)
CPT/HCPCS: 72148

== ENCOUNTER 2024-07-01 08:58 | Inpatient (IN) | payer OTHER, SELFPAY ==
[2024-07-01] VITALS (8 sets, daily range): BP systolic 117–162; BP diastolic 50–87; PULSE 65–82; RESP 12–18; TEMP 36.4–37.1; O2SAT 96–99; BMI 40.5
--- NOTE | ~2024-07-01 | CT_ITS ---
EXAMINATION: CTA NECK WITH CONTRAST (STROKE) CTA BRAIN WITH CONTRAST (STROKE) CLINICAL INFORMATION: Suspect acute stroke. History of dementia, now presents with worsening altered mental status. Assess for major vessel occlusion. Please call report. COMPARISON: Stroke CT scan of brain on 07/01/2024 TECHNIQUE: CTA of the head and neck was performed in the axial plane from the mediastinum to the skull vertex using 70 mL Omnipaque 350 intravenous contrast. Additional reformatted multiplanar images including maximum intensity projection MIP images are generated on the CT workstation. This CT examination was performed using dose optimization techniques as appropriate, variously including the following: *Automated exposure control *Adjustment of mA and/or kV according to patient size (this includes techniques or standardized protocols for targeted exams where dose is matched to indication/reason for exam; i.e. extremities or head) *Use of iterative reconstruction technique DLP: 1681 mGy-cm EXAMINATION: CT brain. FINDINGS: Ventricles, sulci and cisterns are dilated. There is no midline shift, no abnormal intra- or extra- axial fluid accumulation. Cummings and white matter differentiation is normal. Postcontrast images show normal enhancement of major intracerebral blood vessels. No enhancing intracranial mass lesion or abnormal meningeal enhancement is seen. Bone window images show no evidence of skull fracture. CT/CT angio head neck STROKE IMPRESSION: 1. Unchanged age related cerebral atrophy and ventriculomegaly. 2. No intracranial hemorrhage or skull fracture is seen. 3. No evidence of space occupying or enhancing intracranial mass lesion could be found. 4. The current plain CT scan of the brain shows no diagnostic evidence of acute cerebral infarction. EXAMINATION: CT angiogram of brain. COMPARISON: None available. FINDINGS: There is normal visualization of bilateral anterior, middle and posterior cerebral arteries, internal carotid arteries, basilar artery and terminal portions of bilateral vertebral arteries. Anterior communicating artery is normal. Bilateral posterior communicating arteries are normal. Bilateral internal carotid siphons containing extensive tram track shape atherosclerotic calcifications without causing hemodynamically significant stenosis. Timing of the bolus allows assessment of the major dural venous sinuses. The major cerebral venous sinuses show normal contrast filling. IMPRESSION: 1. Normal CT angiogram of the brain. 2. No focal cerebral arterial lesion or significant arterial stenosis is seen. EXAMINATION: CT angiogram of neck. COMPARISON: None available. STENOSIS MEASUREMENT: Degree of stenosis was measured and calculated based on NASCET criteria. Carotid stenosis reference using NASCET criteria: % stenosis = (1 - narrowest ICA diameter/diameter of distal cervical ICA) x 100. Mild - < 50% stenosis. Moderate - 50-69% stenosis. Severe - 70-94% stenosis. Near occlusion - 95-99% stenosis. Occluded - 100% stenosis. FINDINGS: RIGHT SIDE: Right internal carotid artery: Smoothly patent. Focal calcified atherosclerotic plaque is seen at the medial wall origin without causing hemodynamically significant stenosis. The right internal carotid artery is markedly tortuous, crossing over the right medial posterior oral pharyngeal wall all the way up to the level of soft palate. Right external carotid artery: Smoothly patent. Right common carotid artery: Smoothly patent. Right vertebral artery: Smoothly patent. LEFT SIDE: Left internal carotid artery: Smoothly patent and tortuous. Calcified atherosclerotic plaques are seen at origin and bulb of left internal carotid artery without causing hemodynamically significant stenosis. Left external carotid artery: Smoothly patent. Left common carotid artery: Smoothly patent. Left vertebral artery: Smoothly patent and dominant. At the superior mediastinum, the visualized right innominate artery, bilateral subclavian arteries and common carotid arteries are smoothly patent starting from the origin at the aortic arch. A tiny 0.7 cm hypodense nodule is seen in anterior left thyroid lobe. IMPRESSION: 1. Normal CT angiogram of the neck. No evidence of significant carotid stenosis. 2. Patent bilateral vertebral arteries with left-sided dominance. This critical result was reported through fabricator special items to NIXON Maza on 07/01/2024 at 1230 hours EST and it was ascertained that the content and urgency of this report was understood at the time of direct communication. Electronically signed by: Angelica Emmanuel MD 07/01/2024 12:32 PM EST
--- NOTE | ~2024-07-01 | XR_ITS ---
EXAMINATION: XR CHEST CLINICAL INFORMATION: AMS COMPARISON: Chest x-ray May 23, 2020 TECHNIQUE: Frontal view of the chest was obtained. FINDINGS: No significant abnormality is noted involving the heart, lungs, mediastinum, bony thorax or soft tissues. XR/XR chest 1V IMPRESSION: Unremarkable examination. Electronically signed by: Messi Venegas MD 07/01/2024 03:27 PM [facility]
--- NOTE | ~2024-07-01 | MR_ITS ---
EXAMINATION: MR BRAIN WITHOUT CONTRAST CLINICAL INFORMATION: Acute encephalopathy,? CVA COMPARISON: None available. TECHNIQUE: MRI of the brain was obtained using routine sequences without contrast. FINDINGS: No acute intracranial hemorrhage or infarct. Several scattered periventricular and deep white matter T2/FLAIR hyperintensities, nonspecific however commonly seen with small vessel ischemic disease. Diffuse prominence of the sulci with associated ex vacuo dilation of the ventricles compatible with global cerebral atrophy. No midline shift or hydrocephalus. No acute extra-axial fluid collections. The osseous structures are unremarkable. Partially imaged ill-defined T2 hyperintensity along the fisher weir space and extending to the skin surface, of unknown clinical significance. The pituitary gland, pineal gland and remaining midline structures are unremarkable. Sequelae of bilateral lens replacement. Otherwise, no acute orbital pathology. The paranasal sinuses and mastoid air cells are clear. MR/MR head/brain wo con IMPRESSION: 1. No acute intracranial abnormalities. 2. Global cerebral atrophy and chronic microangiopathy. Electronically signed by: Siri Bartlett MD 07/01/2024 06:08 PM [facility]
--- NOTE | ~2024-07-01 | CT_ITS ---
EXAMINATION: CT HEAD WITHOUT CONTRAST (STROKE PROTOCOL) CLINICAL INFORMATION: Stroke protocol. Evaluation COMPARISON: None available. TECHNIQUE: Contiguous axial imaging was performed from the skull base to vertex without intravenous administration of contrast. This CT examination was performed using dose optimization techniques as appropriate, variously including the following: *Automated exposure control *Adjustment of mA and/or kV according to patient size (this includes techniques or standardized protocols for targeted exams where dose is matched to indication/reason for exam; i.e. extremities or head) *Use of iterative reconstruction technique DLP: 817 mGy-cm FINDINGS: No evidence for acute hemorrhage or mass effect. Cummings/white matter differentiation is maintained. No acute extra-axial collections. Atrophy observed. No acute territorial infarct seen. Mild hypodensity in the periventricular and subcortical white matter consistent with chronic small vessel ischemic disease. No intraventricular blood. The mastoids are well aerated. Skull base unremarkable. Calvarium appears intact. CT/CT head for STROKE IMPRESSION: No acute intracranial pathology. Atrophy with mild change of chronic small vessel ischemic disease and white matter. This critical result was discussed with Harleen Davila at 1011 hours on July 01, 2024. It was ascertained that the content and urgency of the report was understood at the time of direct communication. Electronically signed by: Félix Heller MD 07/01/2024 10:12 AM NATALIE LAMA
--- NOTE | 2024-07-01 09:07 | ED.GENADULT ---
HPI - General Adult General Chief complaint: Altered Mental Status Stated complaint: CALLED SON FELT INSANE ,SUDDEN CONFUSION PER EMS Time Seen by Provider: 07/01/24 09:05 Source: patient, family and RN notes reviewed Mode of arrival: EMS Limitations: no limitations History of Present Illness ED Provider: Harleen Davila PA-C HPI narrative: This is a 78-year-old male, with a history of ANKIT, BPPV, and diabetes, who presents emergency department with confusion. Patient came in by ambulance. Son at bedside. Son reports that patient called him stating that he was not feeling well and his son went over to his house and his blood sugar was 53. Patient administered some food, and his blood sugar increased in he was feeling much better. Son reports that at 8:00 a.m. this morning he received a phone call from patient stating I feel insane and I do not know where my car is . Patient is usually alert and oriented x4, however he is alert and oriented to self and place. Upon asking what year it is he states ?[birth year] , he is unsure what led him here, he states that he knows he is in [place] however is unsure the specific location. Patient reporting that he has a slight headache, which he is attributing to his low blood sugar. He states that the confusion started yesterday. Upon at asking why he felt confused yesterday, he was unable to explain any further. Patient reports that he is in no current pain. He does admit to having trouble with word finding. He denies any headaches, dizziness, blurred vision, chest pain, shortness of breath, abdominal pain, nausea, vomiting or diarrhea. No other complaints or concerns at this time. MD complaint: Confusion Quality: aching Pain Consistency: constant Relieving factors: none Exacerbating factors: none Associated symptoms: confusion Treatments prior to arrival: none Related Data Home Medications ?Medication ?Instructions ?Recorded ?Confirmed aspirin 81 mg tablet,delayed 1 tab PO DAILY 05/23/20 07/01/24 release atorvastatin 40 mg tablet 1 tab PO DAILY 05/23/20 07/01/24 metformin 500 mg tablet 2 tab PO BID 05/23/20 07/01/24 empagliflozin 10 mg tablet 10 mg PO DAILY 10/29/23 07/01/24 (Jardiance) acetaminophen 500 mg tablet 500 mg PO Q4-6H PRN Pain 07/01/24 07/01/24 amlodipine 10 mg tablet 10 mg PO DAILY 07/01/24 07/01/24 diclofenac sodium 75 mg 75 mg PO BID 07/01/24 07/01/24 tablet,delayed release docusate sodium 100 mg capsule 200 mg PO DAILY 07/01/24 07/01/24 ibuprofen 600 mg tablet 600 mg PO Q6-8H PRN Pain 07/01/24 07/01/24 insulin glargine U-300 conc 300 60 unit subcut BEDTIME 07/01/24 07/01/24 unit/mL (1.5 mL) subcutaneous pen (Toujeo SoloStar U-300 Insulin) lactulose 10 gram/15 mL oral 15 ml PO DAILY 07/01/24 07/01/24 solution metoprolol succinate 100 mg 100 mg PO BID 07/01/24 07/01/24 tablet,extended release 24 hr tirzepatide 15 mg/0.5 mL 15 mg subcut TU 07/01/24 07/01/24 subcutaneous pen injector (Rocuncatiaro) Allergies Allergy/AdvReac Type Severity Reaction Status Date / Time Penicillins Allergy Unknown Swelling Verified 07/01/24 09:11 Sulfa (Sulfonamide Allergy Unknown Swelling Verified 07/01/24 09:11 Antibiotics) Review of Systems Review of Systems: Yes all other systems are reviewed and are negative Constitutional: Constitutional: Reports as per HPI Neurologic: Reports confusion Psychiatric: Psychiatric: Reports confusion [facility] Past Medical History Medical History Low back pain BPV (benign positional vertigo) ANKIT (obstructive sleep apnea) Depression Obesity Diabetes Surgical History Hx of laparoscopic gastric banding Hx of cholecystectomy Social History Social History Household Members: None Housing: House Do you presently have visiting nurse or other home services: No Alcohol intake: never Patient Tobacco Use Status: Never used Tobacco Smoked in Last 30 Days: No Use of substances other than those prescribed or required for medical reasons: No Have you been hit, kicked, punched, or otherwise hurt by someone within the past year? If so, by whom?: No Do you feel safe in your current relationship?: No Current Relationship Is there a partner from a previous relationship who is making you feel unsafe now?: No Are you made to feel afraid or neglected: No Advance Directives: No Do you have a plan to hurt others: No Plan Recently lost weight without trying: No Nutrition Risks: No Nutritional Risk Poor oral hygiene: No service: No Physical Exam ED Vital Signs: Vital Signs - 24 hr 07/01/24 11:00 07/01/24 12:23 Temperature 98.2 F Pulse Rate 67 70 Respiratory Rate 12 18 Blood Pressure 144/73 H 129/72 Pulse Oximetry 98 99 Oxygen Delivery Method Room Air Room Air BMI result Body Mass Index 40.5 Const General: cooperative, comfortable, alert, awake and confusion Nutritional Appearance: overweight Orientation/consciousness: oriented to person, oriented to place and confusion Limitations: altered mental status HENMT Head: Yes normal to inspection, Yes normocephalic and Yes atraumatic Ears: hearing grossly normal bilaterally General nose exam: Normal external nose present Face and sinus: Yes normal facial exam Mouth: Normal oral and palatal mucosa present, oropharynx normal and moist mucous membranes Throat: Yes posterior oropharynx normal Eyes General: appearance normal, both eyes and all related structures Eyelids: Yes eyelids normal Conjunctivae: conjunctivae normal Sclerae: sclerae normal Pupils: Equal, round and reactive pupils present EOM: EOMs intact bilaterally Neck Neck: Yes normal visual inspection, Yes full ROM and Yes no lymphadenopathy Lymphatic: no lymphadenopathy noted Chest Chest palpation & inspection: normal inspection of the chest Resp Effort & Inspection: normal respiratory effort and able to speak in complete sentences Auscultation: clear to auscultation bilaterally, no crackles, no rales, no rhonchi and no wheezes Cardio Rate: regular rate Rhythm: regular rhythm Heart sounds: S1 normal heart sound present and S2 normal heart sound present GI Inspection: Yes normal to inspection Skin General skin exam: no rashes or lesions noted Trauma: no lacerations or abrasions Wounds: no wounds Neuro General: oriented to person, oriented to place, moves all extremities and confusion Cranial nerves: Yes CN's II-XII intact bilaterally, Yes Equal, round and reactive pupils present, Yes Nystagmus not present, Yes Normal facial strength present and Yes Midline tongue present Speech: Expressive aphasia present Motor exam (neuro): 5/5 motor strength present throughout, Pronator motor function not present, no tremor noted and no asterixis Coordination: [id number] test normal and [id number] test normal Extrem General: Yes normal to inspection Right upper extremity: normal to inspection Left upper extremity: normal to inspection Right lower extremity: normal to inspection Left lower extremity: normal to inspection NIH Stroke Scale Internal: Initial- Upon Arrival Time: 09:30 Level of Consciousness: Alert Level of Consciousness Questions: Answers both questions correctly Level of Consciousness Commands: Performs both tasks correctly Best Gaze: Normal Visual: No visual loss Facial Palsy: Normal Motor Arm (Right): No drift Motor Arm (Left): No drift Motor Leg (Right): No drift Motor Leg (Left): No drift Limb Ataxia: Absent Sensory: Normal Best Language: Mild to moderate aphasia Dysarthia: Normal Extinction and Inattention: No abnormality Score: 1 Course Reevaluation(s) Reevaluation #1: Frozen radiology calls revealing dry CT with no acute intracranial process, only age-related changes. Time: 10:12 Reevaluation #2: Multiple attempts were made out to [facility] given extensive radiologic delays in patient care, and finally had a response. CTA is negative. Discussed findings with my attending physician, Dr. Jackson. Given presentation, will admit for TIA. He will likely need an MRI inpatient. Chest x-ray was ordered for completeness. He is not having any chest pain or shortness for breath. He is resting comfortably. Time: 12:49 Medications Administered Generic Name Dose Route Start Last Admin Trade Name Freq PRN Reason Stop Dose Admin Acetaminophen/Butalbital/Caffeine 1 tab 07/01/24 16:02 07/01/24 16:24 Butalb/Acetamin/Caff 50/325/40 Tablet PO 1 tab Q4H PRN Administration Migraine Headache Amlodipine Besylate 10 mg 07/02/24 09:00 07/02/24 08:53 Amlodipine Besylate 10 Mg Tablet PO 10 mg DAILY SARAH Administration Protocol Aspirin 81 mg 07/02/24 09:00 07/02/24 08:53 Aspirin Enteric Coated 81 Mg Tablet. PO 81 mg DAILY SARAH Administration Atorvastatin Calcium 40 mg 07/02/24 09:00 07/02/24 08:53 Atorvastatin Calcium 40 Mg Tablet PO 40 mg DAILY SARAH Administration Diclofenac Sodium 75 mg 07/01/24 21:00 07/02/24 08:53 Diclofenac Sodium Delayed Rel 75 Mg Tablet. PO 75 mg BID SARAH Administration Docusate Sodium 200 mg 07/02/24 09:00 07/02/24 08:54 Docusate Sodium 100 Mg Capsule PO 200 mg DAILY SARAH Administration Empagliflozin 10 mg 07/02/24 09:00 07/02/24 08:53 Empagliflozin 10 Mg Tablet PO 10 mg DAILY SARAH Administration Enoxaparin Sodium 40 mg 07/01/24 14:00 07/01/24 15:51 Enoxaparin Sodium 40 Mg/0.4 Ml Syringe SUBCUT Not Given Q24H [facility] Insulin Glargine 42 unit 07/01/24 21:00 07/01/24 21:17 Insulin Glargine,Hum.Rec.Anlog 100 Unit/Ml 10 Ml Vial SUBCUT 42 unit BEDTIME [facility] Administration Insulin Human Lispro 0 unit 07/01/24 16:30 07/02/24 08:47 Insulin Lispro 100 Unit/Ml 3 Ml Vial SUBCUT Not Given QIDACHS [facility] Protocol Lactulose 10 gm 07/02/24 09:00 07/02/24 08:52 Lactulose 20 Gm/30 Ml Solution PO 10 gm DAILY [facility] Administration Metoprolol Succinate 100 mg 07/01/24 21:00 07/02/24 08:53 Metoprolol Succinate Er 100 Mg Tab.Er.24h PO 100 mg BID SARAH Administration Protocol Sodium Chloride 3 ml 07/01/24 16:00 07/02/24 08:54 0.9 % Sodium Chloride Flush 3 Ml Syringe IVFLUSH 3 ml QSHIFT SARAH Administration Discontinued Medications Generic Name Dose Route Start Last Admin Trade Name Freq PRN Reason Stop Dose Admin Acetaminophen 1,000 mg in 100 mls @ 400 mls/hr 07/01/24 12:13 07/01/24 12:45 Ofirmev IV 07/01/24 12:27 Infused ONCE ONE Infusion Iohexol 100 ml 07/01/24 10:02 07/01/24 10:02 Iohexol 350 Mg/Ml 100 Ml Infus..Btl IV 07/01/24 10:03 70 ml ONCE ONE Administration Medical Decision Making Medical Decision Making MDM Narrative: This is a 78-year-old male, with a history of diabetes, who presents emergency department with concerns for confusion. Son reports that last night he had episodes of hypoglycemia, which self resolved after food administration. Son reports that he left around 11:00 p.m. last night. He states that he was we will come by a call from patient stating I am insane , son went to patient's residence and patient appeared to be confused, having difficulty with word finding, which is atypical of him. Upon my initial assessment, patient able to follow commands, however he does appear to have difficulty with word finding, he has an NIH score of 1. Given new onset of aphasia, will initiate stroke protocol. He is not on anticoagulation. Has known well was last night therefore patient does not meet TNK candidacy. Differential Diagnosis Differential Diagnoses: The differential diagnosis associated with the presentation includes TIA, CVA, ICH, UTI, metabolic encephalopathy Lab Data MDM Lab Attestation statement: I reviewed the patient's lab results. No leukocytosis, stable H&H, chemistry without any electrolyte derangement. Troponin 2.9. Urine without any evidence of infection. 07/01/24 09:40 07/01/24 09:40 Labs: Lab Results 07/01/24 07/01/24 07/01/24 Range/Units 09:09 09:37 09:40 WBC 9.1 (4.8-10.8) X10*3/uL RBC 5.27 (4.60-5.80) X10*6/uL Hgb 15.3 (14.0-18.0) g/dl Hct 44.5 (42.0-52.0) % MCV 84.4 (80.0-98.0) fL MCH 29.0 (27.0-33.0) pg MCHC 34.4 (31.0-36.0) g/dl RDW 13.4 (11.0-16.0) % Plt Count 245 (160-400) X10*3/uL MPV 11.2 (9.4-12.4) fL Immature Gran % (Auto) 0.4 (0.0-0.4) % Neut % (Auto) 69.0 (45-73) % Lymph % (Auto) 17.9 L (20-40) % [place] % (Auto) 11.0 (2-11) % Eos % (Auto) 0.9 (0-4) % Baso % (Auto) 0.8 (0-2) % Lymph # (Auto) 1.6 (1.2-4.9) X10*3/uL [place] # (Auto) 1.0 (0.1-1.2) X10*3/uL Eos # (Auto) 0.1 (0.0-0.4) X10*3/uL Baso # (Auto) 0.1 (0.0-0.2) X10*3/uL Abs Immat Gran (auto) 0.04 H (0.00-0.03) X10*3/uL Absolute Neuts (auto) 6.2 (2.0-8.3) x10*3/uL Absolute Nucleated RBC 0.000 (0.0-0.012) X10*3/uL Nucleated RBC % (auto) 0.0 (0.0-0.2) /100WBC PT 10.9 (10.9-12.4) SEC Whole Blood PT 11.9 (11.1-13.5) sec INR 0.9 (0.9-1.1) Whole Blood INR 1.0 (0.9-1.1) APTT 32.5 (26.0-36.8) SEC Sodium 138 (135-145) mmol/L Potassium 3.9 (3.3-5.1) mmol/L Chloride 104 (96-108) mmol/L Carbon Dioxide 25 (22-29) mmol/L Anion Gap 13 (12-20) BUN 18 H (9-16) mg/dL Creatinine 0.86 (0.5-1.4) mg/dL Estim Creat Clear Calc 96.7 Estimated GFR > 60 POC Glucose 94 (60-115) mg/dL Random Glucose 92 (60-115) mg/dL Lactic Acid 1.8 (0.5-2.0) mmol/L Calcium 9.6 (8.4-10.2) mg/dL Total Bilirubin 0.6 (0.0-1.0) mg/dL Direct Bilirubin 0.3 (0.0-0.5) mg/dL AST 32 (5-37) U/L ALT 27 (0-40) U/L Alkaline Phosphatase 77 (39-117) U/L Ammonia (13-55) umol/L Troponin I High Sens 2.9 (<3.5-35.0) ng/L Total Protein 6.5 (6.5-8.0) g/dL Albumin 3.9 (3.5-5.0) g/dL Triglycerides 127 (<150) mg/dL Cholesterol 89 (<200) mg/dL LDL Cholesterol, Calc 40 (<100) mg/dL HDL Cholesterol 24 L (>40) mg/dL Urine Color Urine Appearance Urine pH (5.0-9.0) Ur Specific [place] (1.005-1.025) Urine Protein (Neg-Trace) mg/dL Urine Glucose (UA) (Negative) mg/dL Urine Ketones (Negative) mg/dL Urine Blood (Negative) Urine Nitrite (Negative) Ur Leukocyte Esterase (Negative) Urine RBC (0-2) /HPF Urine WBC (0-5) /HPF Ur Squamous Epith Cells (0-2) /HPF Urine Bacteria (None Seen) Hyaline Casts (0-2) /LPF Influenza Type A (PCR) (Negative) Influenza Type B (PCR) (Negative) RSV RNA Qual (PCR) (Negative) SARS-CoV-2 RNA (RT-PCR) (Negative) 07/01/24 07/01/24 07/01/24 Range/Units 10:38 11:17 11:43 WBC (4.8-10.8) X10*3/uL RBC (4.60-5.80) X10*6/uL Hgb (14.0-18.0) g/dl Hct (42.0-52.0) % MCV (80.0-98.0) fL MCH (27.0-33.0) pg MCHC (31.0-36.0) g/dl RDW (11.0-16.0) % Plt Count (160-400) X10*3/uL MPV (9.4-12.4) fL Immature Gran % (Auto) (0.0-0.4) % Neut % (Auto) (45-73) % Lymph % (Auto) (20-40) % [place] % (Auto) (2-11) % Eos % (Auto) (0-4) % Baso % (Auto) (0-2) % Lymph # (Auto) (1.2-4.9) X10*3/uL [place] # (Auto) (0.1-1.2) X10*3/uL Eos # (Auto) (0.0-0.4) X10*3/uL Baso # (Auto) (0.0-0.2) X10*3/uL Abs Immat Gran (auto) (0.00-0.03) X10*3/uL Absolute Neuts (auto) (2.0-8.3) x10*3/uL Absolute Nucleated RBC (0.0-0.012) X10*3/uL Nucleated RBC % (auto) (0.0-0.2) /100WBC PT (10.9-12.4) SEC Whole Blood PT (11.1-13.5) sec INR (0.9-1.1) Whole Blood INR (0.9-1.1) APTT (26.0-36.8) SEC Sodium (135-145) mmol/L Potassium (3.3-5.1) mmol/L Chloride (96-108) mmol/L Carbon Dioxide (22-29) mmol/L Anion Gap (12-20) BUN (9-16) mg/dL Creatinine (0.5-1.4) mg/dL Estim Creat Clear Calc Estimated GFR POC Glucose 76 (60-115) mg/dL Random Glucose (60-115) mg/dL Lactic Acid (0.5-2.0) mmol/L Calcium (8.4-10.2) mg/dL Total Bilirubin (0.0-1.0) mg/dL Direct Bilirubin (0.0-0.5) mg/dL AST (5-37) U/L ALT (0-40) U/L Alkaline Phosphatase (39-117) U/L Ammonia 34 (13-55) umol/L Troponin I High Sens (<3.5-35.0) ng/L Total Protein (6.5-8.0) g/dL Albumin (3.5-5.0) g/dL Triglycerides (<150) mg/dL Cholesterol (<200) mg/dL LDL Cholesterol, Calc (<100) mg/dL HDL Cholesterol (>40) mg/dL Urine Color Yellow Urine Appearance Clear Urine pH 6.5 (5.0-9.0) Ur Specific [place] >= 1.030 H (1.005-1.025) Urine Protein Negative (Neg-Trace) mg/dL Urine Glucose (UA) >=1000 H (Negative) mg/dL Urine Ketones Negative (Negative) mg/dL Urine Blood Negative (Negative) Urine Nitrite Negative (Negative) Ur Leukocyte Esterase Negative (Negative) Urine RBC 0-2 (0-2) /HPF Urine WBC 0-5 (0-5) /HPF Ur Squamous Epith Cells 0-2 (0-2) /HPF Urine Bacteria None Seen (None Seen) Hyaline Casts 0-2 (0-2) /LPF Influenza Type A (PCR) (Negative) Influenza Type B (PCR) (Negative) RSV RNA Qual (PCR) (Negative) SARS-CoV-2 RNA (RT-PCR) (Negative) 07/01/24 Range/Units 13:19 WBC (4.8-10.8) X10*3/uL RBC (4.60-5.80) X10*6/uL Hgb (14.0-18.0) g/dl Hct (42.0-52.0) % MCV (80.0-98.0) fL MCH (27.0-33.0) pg MCHC (31.0-36.0) g/dl RDW (11.0-16.0) % Plt Count (160-400) X10*3/uL MPV (9.4-12.4) fL Immature Gran % (Auto) (0.0-0.4) % Neut % (Auto) (45-73) % Lymph % (Auto) (20-40) % [place] % (Auto) (2-11) % Eos % (Auto) (0-4) % Baso % (Auto) (0-2) % Lymph # (Auto) (1.2-4.9) X10*3/uL [place] # (Auto) (0.1-1.2) X10*3/uL Eos # (Auto) (0.0-0.4) X10*3/uL Baso # (Auto) (0.0-0.2) X10*3/uL Abs Immat Gran (auto) (0.00-0.03) X10*3/uL Absolute Neuts (auto) (2.0-8.3) x10*3/uL Absolute Nucleated RBC (0.0-0.012) X10*3/uL Nucleated RBC % (auto) (0.0-0.2) /100WBC PT (10.9-12.4) SEC Whole Blood PT (11.1-13.5) sec INR (0.9-1.1) Whole Blood INR (0.9-1.1) APTT (26.0-36.8) SEC Sodium (135-145) mmol/L Potassium (3.3-5.1) mmol/L Chloride (96-108) mmol/L Carbon Dioxide (22-29) mmol/L Anion Gap (12-20) BUN (9-16) mg/dL Creatinine (0.5-1.4) mg/dL Estim Creat Clear Calc Estimated GFR POC Glucose (60-115) mg/dL Random Glucose (60-115) mg/dL Lactic Acid (0.5-2.0) mmol/L Calcium (8.4-10.2) mg/dL Total Bilirubin (0.0-1.0) mg/dL Direct Bilirubin (0.0-0.5) mg/dL AST (5-37) U/L ALT (0-40) U/L Alkaline Phosphatase (39-117) U/L Ammonia (13-55) umol/L Troponin I High Sens (<3.5-35.0) ng/L Total Protein (6.5-8.0) g/dL Albumin (3.5-5.0) g/dL Triglycerides (<150) mg/dL Cholesterol (<200) mg/dL LDL Cholesterol, Calc (<100) mg/dL HDL Cholesterol (>40) mg/dL Urine Color Urine Appearance Urine pH (5.0-9.0) Ur Specific [place] (1.005-1.025) Urine Protein (Neg-Trace) mg/dL Urine Glucose (UA) (Negative) mg/dL Urine Ketones (Negative) mg/dL Urine Blood (Negative) Urine Nitrite (Negative) Ur Leukocyte Esterase (Negative) Urine RBC (0-2) /HPF Urine WBC (0-5) /HPF Ur Squamous Epith Cells (0-2) /HPF Urine Bacteria (None Seen) Hyaline Casts (0-2) /LPF Influenza Type A (PCR) NEGATIVE (Negative) Influenza Type B (PCR) NEGATIVE (Negative) RSV RNA Qual (PCR) NEGATIVE (Negative) SARS-CoV-2 RNA (RT-PCR) NEGATIVE (Negative) Radiology Impression Discussion of test interpretation with radiology: I have reviewed the radiologist's reading. Radiologist Impression: EXAMINATION: CTA NECK WITH CONTRAST (STROKE) CTA BRAIN WITH CONTRAST (STROKE) CLINICAL INFORMATION: Suspect acute stroke. History of dementia, now presents with worsening altered mental status. Assess for major vessel occlusion. Please call report. COMPARISON: Stroke CT scan of brain on 07/01/2024 TECHNIQUE: CTA of the head and neck was performed in the axial plane from the mediastinum to the skull vertex using 70 mL Omnipaque 350 intravenous contrast. Additional reformatted multiplanar images including maximum intensity projection MIP images are generated on the CT workstation. This CT examination was performed using dose optimization techniques as appropriate, variously including the following: *Automated exposure control *Adjustment of mA and/or kV according to patient size (this includes techniques or standardized protocols for targeted exams where dose is matched to indication/reason for exam; i.e. extremities or head) *Use of iterative reconstruction technique DLP: 1681 mGy-cm EXAMINATION: CT brain. FINDINGS: Ventricles, sulci and cisterns are dilated. There is no midline shift, no abnormal intra- or extra- axial fluid accumulation. Cummings and white matter differentiation is normal. Postcontrast images show normal enhancement of major intracerebral blood vessels. No enhancing intracranial mass lesion or abnormal meningeal enhancement is seen. Bone window images show no evidence of skull fracture. CT/CT angio head neck STROKE IMPRESSION: 1. Unchanged age related cerebral atrophy and ventriculomegaly. 2. No intracranial hemorrhage or skull fracture is seen. 3. No evidence of space occupying or enhancing intracranial mass lesion could be found. 4. The current plain CT scan of the brain shows no diagnostic evidence of acute cerebral infarction. EXAMINATION: CT angiogram of brain. COMPARISON: None available. FINDINGS: There is normal visualization of bilateral anterior, middle and posterior cerebral arteries, internal carotid arteries, basilar artery and terminal portions of bilateral vertebral arteries. Anterior communicating artery is normal. Bilateral posterior communicating arteries are normal. Bilateral internal carotid siphons containing extensive tram track shape atherosclerotic calcifications without causing hemodynamically significant stenosis. Timing of the bolus allows assessment of the major dural venous sinuses. The major cerebral venous sinuses show normal contrast filling. IMPRESSION: 1. Normal CT angiogram of the brain. 2. No focal cerebral arterial lesion or significant arterial stenosis is seen. EXAMINATION: CT angiogram of neck. COMPARISON: None available. STENOSIS MEASUREMENT: Degree of stenosis was measured and calculated based on NASCET criteria. Carotid stenosis reference using NASCET criteria: % stenosis = (1 - narrowest ICA diameter/diameter of distal cervical ICA) x 100. Mild - < 50% stenosis. Moderate - 50-69% stenosis. Severe - 70-94% stenosis. Near occlusion - 95-99% stenosis. Occluded - 100% stenosis. FINDINGS: RIGHT SIDE: Right internal carotid artery: Smoothly patent. Focal calcified atherosclerotic plaque is seen at the medial wall origin without causing hemodynamically significant stenosis. The right internal carotid artery is markedly tortuous, crossing over the right medial posterior oral pharyngeal wall all the way up to the level of soft palate. Right external carotid artery: Smoothly patent. Right common carotid artery: Smoothly patent. Right vertebral artery: Smoothly patent. LEFT SIDE: Left internal carotid artery: Smoothly patent and tortuous. Calcified atherosclerotic plaques are seen at origin and bulb of left internal carotid artery without causing hemodynamically significant stenosis. Left external carotid artery: Smoothly patent. Left common carotid artery: Smoothly patent. Left vertebral artery: Smoothly patent and dominant. At the superior mediastinum, the visualized right innominate artery, bilateral subclavian arteries and common carotid arteries are smoothly patent starting from the origin at the aortic arch. A tiny 0.7 cm hypodense nodule is seen in anterior left thyroid lobe. IMPRESSION: 1. Normal CT angiogram of the neck. No evidence of significant carotid stenosis. 2. Patent bilateral vertebral arteries with left-sided dominance. This critical result was reported through extruder operator to NIXON Maza on 07/01/2024 at 1230 hours EST and it was ascertained that the content and urgency of this report was understood at the time of direct communication. Electronically signed by: Angelica Emmanuel MD 07/01/2024 12:32 PM EST Dictated By: Angelica Emmanuel Independent Historian Clinical information obtained from an independent historian. History obtained from or confirmed by: Other (Son) Critical Care Time Critical Care Time Critical Care Time: Yes Total Critical Care Time: 45 Attestation: I have personally provided critical care time exclusive of time spent on separately billable procedures. Time includes review of lab data, radiology results, discussion with consultants, and monitoring for potential decompensation. Intervention performed as documented. Discharge Plan Discharge Clinical Impression: Transient ischemic attack (TIA) Patient Disposition: Admitted As Inpatient Interventions: Admission Worksheet (ED) Last Done: 07/02/24 00:37 Discharge Date/Time: 07/02/24 02:00
--- NOTE | 2024-07-01 09:22 | ECG_ITS ---
Test Reason : AMS Blood Pressure : / mmHG Vent. Rate : 064 BPM Atrial Rate : 064 BPM P-R Int : 250 ms QRS Dur : 096 ms QT Int : 424 ms P-R-T Axes : 028 -26 019 degrees QTc Int : 437 ms Sinus rhythm with 1st degree A-V block with Premature atrial complexes Anterior infarct , age undetermined Abnormal ECG When compared with ECG of 23-MAY-2020 23:25, Premature atrial complexes are now Present [place] interval has increased Anterior infarct is now Present Referred By: Harleen Davila Electronically Signed By:ZORA SCHROEDER MD
[2024-07-01 09:41] LABS: Prothrombin Time Whole Bld POC 11.9 sec (11.1-13.5)
[2024-07-01 09:45] LABS: MANUAL DIFF FLAG NO
[2024-07-01 09:46] LABS: Basophils Absolute Auto 0.1 X10*3/uL (0.0-0.2); Basophils Percent Auto 0.8 % (0-2); Eosinophils Absolute Auto 0.1 X10*3/uL (0.0-0.4); Eosinophils Percent Auto 0.9 % (0-4); Hematocrit 44.5 % (42.0-52.0); Hemoglobin 15.3 g/dl (14.0-18.0); Imm Gran Abs Auto 0.04 X10*3/uL (0.00-0.03); Imm Gran Pct Auto 0.4 % (0.0-0.4); Lymphocytes Absolute Auto 1.6 X10*3/uL (1.2-4.9); Lymphocytes Percent Auto 17.9 % (20-40); Mean Corpuscular HGB Conc 34.4 g/dl (31.0-36.0); Mean Corpuscular Volume 84.4 fL (80.0-98.0); Mean Platelet Volume 11.2 fL (9.4-12.4); Neutrophils Absolute Auto 6.2 x10*3/uL (2.0-8.3); Platelet Count 245 X10*3/uL (160-400); Red Blood Count 5.27 X10*6/uL (4.60-5.80); Red Cell Distribution Width 13.4 % (11.0-16.0); White Blood Count 9.1 X10*3/uL (4.8-10.8)
[2024-07-01 09:52] LABS: INTERNATIONAL NORM RATIO 0.9 (0.9-1.1); Prothrombin Time 10.9 SEC (10.9-12.4)
[2024-07-01 09:55] LABS: Partial Thromboplastin Time 32.5 SEC (26.0-36.8); Stroke Lab Use COMPLETE
[2024-07-01] MEDS: iohexoL 350 MG/ML 100 ML INFUS..BTL IV (10:02)
[2024-07-01 10:04] LABS: Anion Gap 13 (12-20); Blood Urea Nitrogen 18 mg/dL (9-16); Calcium 9.6 mg/dL (8.4-10.2); Carbon Dioxide 25 mmol/L (22-29); Chloride 104 mmol/L (96-108); Cholesterol 89 mg/dL (<200); Creatinine Clr Calc Pharmacy 96.7; Estimated Glomerular Filt Rate > 60; Glucose Random 92 mg/dL (60-115); HDL Cholesterol 24 mg/dL (>40); LDL Cholesterol Calculated 40 mg/dL (<100); Potassium 3.9 mmol/L (3.3-5.1); Sodium 138 mmol/L (135-145); Triglycerides 127 mg/dL (<150)
[2024-07-01 10:05] LABS: Lactic Acid 1.8 mmol/L (0.5-2.0)
[2024-07-01 10:11] LABS: Troponin-I High Sensitivity 2.9 ng/L (<3.5-35.0)
[2024-07-01 10:52] LABS: Appearance Urine Clear; Color Urine Yellow; Glucose Urine UA >=1000 mg/dL (Negative); Leukocyte Esterase Urine Negative (Negative); Nitrite Urine Negative (Negative); PH 6.5 (5.0-9.0); Specific Gravity - Urine >= 1.030 (1.005-1.025); UMIC TRIGGER UACC YES; Urine Blood Negative (Negative); Urine Ketones Negative (Negative); Urine Protein Negative (Neg-Trace)
[2024-07-01 10:59] LABS: Bacteria Urine None Seen (None Seen); Hyaline Casts Urine 0-2 /LPF (0-2); RBC Urine 0-2 /HPF (0-2); Squamous Epithelial Cell Urine 0-2 /HPF (0-2); WBC Urine 0-5 /HPF (0-5)
[2024-07-01 11:37] LABS: Glucose, Whole Blood 76 mg/dL (60-115)
[2024-07-01 11:51] LABS: Alanine Aminotransferase 27 U/L (0-40); Albumin Level 3.9 g/dL (3.5-5.0); Alkaline Phosphatase 77 U/L (39-117); Aspartate Amino Transferase 32 U/L (5-37); Bilirubin Direct 0.3 mg/dL (0.0-0.5); Bilirubin Total 0.6 mg/dL (0.0-1.0); Total Protein 6.5 g/dL (6.5-8.0)
[2024-07-01 11:52] LABS: Ammonia 34 umol/L (13-55)
[2024-07-01] MEDS: Acetaminophen 1,000 MG/100 ML PIGGYBACK 400 MG IV (12:23)
--- NOTE | 2024-07-01 12:49 | PC.NURSE ---
nursing swallow screen pass. tylenol IV hung for headache. word finding has improved since stay in ED
--- NOTE | 2024-07-01 13:04 | MHC.STROKE ---
Notified that patient was made a stroke alert Met with son while patient was in CT scan Son reports that patient called him last night around midnight. Reports that he was not feeling well and his sugar was low. Son stated poc was 53 and patient seemed altered and in a cold sweat. He stated that he was able to take some PO and he gave him some snacks. Sugar came up to mid 70s. Son also reported that the patient c/o abd pain. This morning, son received a phone call from the patient stating I feel insane . Upon arrival of the son, patient was confused and appeared to have difficulty with word finding. This is not normal for the patient per the son. Recent history of some dizziness and headache per son. When patient returned to the room, he was awake, alert, and following commands. He was able to briefly describe how he was feeling and what had happened the previous evening. PERRLA, tongue midline, face symmetrical, speech with slight slurring No palmar drift, equal strength in both arms and legs. Stroke education provided to both son and patient. Stroke education pamphlet provided. Risk factors discussed. Will continue to assist as needed.
--- NOTE | 2024-07-01 13:14 | P.HPHOSP_ITS ---
History of Present Illness Date of Service: 07/01/24 Attending physician on admission: Akbar Skinner Chief Complaint: Confusion Pt is a 78-year-old male with a PMH significant for?HLD, insulin-dependent type 2 diabetes, BPH, obesity class III, hx of gastric banding w/reversal, chronic lower back pain, and ANKIT not compliant with CPAP who presents to the ED with?acute encephalopathy and difficulty word finding. Patient is alert and oriented to self only at time of interview and exam and thus incapable of providing accurate HPI which is instead supplemented by phone call to son/HCP. Last night around midnight patient apparently called his son stating that his blood sugars were low and that he could not get up out of bed. Patient had not been eating much and apparently given himself too much insulin. Son provided patient with snacks and blood sugars came up from the mid 50s to the mid 70s. Son stated there was no obvious confusion at that time. This morning at 08:00 son reports patient called him again and said ?I've gone insane and don't know where my car is. Son called EMS and arrived at the patient's home find him acutely confused. Patient is normally alert and oriented x4. Patient had no other obvious acute medical complaints recent illnesses. Son states patient has never had a similar episode of confusion before. He has, though, been hypoglycemic a number of times in the past. In the ED pt was hypertensive up to 154/79, vitals otherwise WNL and stable. Labs were grossly unremarkable and baseline for patient. No leukocytosis. Stable H&H. No significant electrolyte abnormalities. Renal function baseline. Hepatic function baseline. POC 76. Lactic acid WNL. Troponin WNL at 2.9. Ammonia WNL at 34. UA negative for UTI. CXR official read pending. CT?no acute intracranial pathology, though showed atrophy with mild change of chronic small- vessel ischemic disease and white matter. CTA of head negative for acute abnormality. CTA of neck negative for significant carotid stenosis. EKG demonstrated sinus rhythm first-degree AV block and PACs. Pt was treated with acetaminophen. Pt will be admitted to the hospital for treatment and further evaluation of acute encephalopathy and difficulty word finding concerning for CVA. Review of Systems 2 Review of Systems: Yes Unobtainable due to mental status [facility] Medical History Low back pain BPV (benign positional vertigo) ANKIT (obstructive sleep apnea) Depression Obesity Diabetes Surgical History Hx of laparoscopic gastric banding Hx of cholecystectomy Social History Alcohol intake: never Patient Tobacco Use Status: Never used Tobacco Smoked in Last 30 Days: No Use of substances other than those prescribed or required for medical reasons: No Advance Directives: No Do you have a plan to hurt others: No Plan Meds Allergies Allergy/AdvReac Type Severity Reaction Status Date / Time Penicillins Allergy Unknown Swelling Verified 07/01/24 09:11 Sulfa (Sulfonamide Allergy Unknown Swelling Verified 07/01/24 09:11 Antibiotics) Home Medications ?Medication ?Instructions ?Recorded ?Confirmed ?Last Taken ?Type aspirin 81 mg tablet,delayed 1 tab PO DAILY 05/23/20 05/23/20 01/09/24 History release atorvastatin 40 mg tablet 1 tab PO DAILY 05/23/20 05/23/20 Unknown History metformin 500 mg tablet 2 tab PO BID 05/23/20 05/23/20 01/10/24 08:00 History metoprolol succinate 25 mg 1 tab PO DAILY 05/23/20 05/23/20 Unknown History tablet,extended release 24 hr empagliflozin 10 mg tablet 10 mg PO DAILY 10/29/23 01/07/24 History (Jardiance) insulin lispro 100 unit/mL subcut 10/29/23 Unknown History subcutaneous pen (Humalog KwikPen (U-100) Insulin) tirzepatide 12.5 mg/0.5 mL mg subcut 01/08/24 01/08/24 01/02/24 History subcutaneous pen injector (Mounjaro) Physical Exam 2 Vital Signs and Narrative: Vital Signs: Last Vital Signs Temp 98.2 F 07/01/24 11:00 Pulse 70 07/01/24 12:23 Resp 18 07/01/24 12:23 BP 129/72 07/01/24 12:23 Pulse Ox 99 07/01/24 12:23 O2 Del Method Room Air 07/01/24 12:23 BMI result Body Mass Index 40.5 General: Alert and oriented to self only, confused. In no acute distress Resp: CTA bilaterally CVS: S1, S2, RRR GI: +BS, NT, no distention, obese Skin: Warm, dry Neuro: Pt confused, capable of following commands. Difficulty word finding. Motor grossly intact bilaterally. Sensation to light touch appears preserved of upper and lower extremities bilaterally. Strength preserved and symmetric, 5/5 of upper and lower extremities bilaterally. Negative pronator drift. Extremities: No edema Results Labs 07/01/24 09:40 07/01/24 09:40 Labs: Laboratory Results - last 24 hr 07/01/24 07/01/24 07/01/24 09:37 09:40 10:38 MCV 84.4 MCH 29.0 MCHC 34.4 RDW 13.4 Plt Count 245 MPV 11.2 Immature Gran % (Auto) 0.4 Neut % (Auto) 69.0 Lymph % (Auto) 17.9 L [place] % (Auto) 11.0 Eos % (Auto) 0.9 Baso % (Auto) 0.8 Lymph # (Auto) 1.6 [place] # (Auto) 1.0 Eos # (Auto) 0.1 Baso # (Auto) 0.1 Abs Immat Gran (auto) 0.04 H Absolute Neuts (auto) 6.2 Absolute Nucleated RBC 0.000 Nucleated RBC % (auto) 0.0 PT 10.9 Whole Blood PT 11.9 INR 0.9 Whole Blood INR 1.0 APTT 32.5 Anion Gap 13 Estim Creat Clear Calc 96.7 Estimated GFR > 60 POC Glucose Random Glucose 92 Lactic Acid 1.8 Calcium 9.6 Total Bilirubin 0.6 Direct Bilirubin 0.3 AST 32 ALT 27 Alkaline Phosphatase 77 Ammonia Troponin I High Sens 2.9 Total Protein 6.5 Albumin 3.9 Triglycerides 127 Cholesterol 89 LDL Cholesterol, Calc 40 HDL Cholesterol 24 L Urine Color Yellow Urine Appearance Clear Urine pH 6.5 Ur Specific [place] >= 1.030 H Urine Protein Negative Urine Glucose (UA) >=1000 H Urine Ketones Negative Urine Blood Negative Urine Nitrite Negative Ur Leukocyte Esterase Negative Urine RBC 0-2 Urine WBC 0-5 Ur Squamous Epith Cells 0-2 Urine Bacteria None Seen Hyaline Casts 0-2 07/01/24 07/01/24 11:17 11:43 MCV MCH MCHC RDW Plt Count MPV Immature Gran % (Auto) Neut % (Auto) Lymph % (Auto) [place] % (Auto) Eos % (Auto) Baso % (Auto) Lymph # (Auto) [place] # (Auto) Eos # (Auto) Baso # (Auto) Abs Immat Gran (auto) Absolute Neuts (auto) Absolute Nucleated RBC Nucleated RBC % (auto) PT Whole Blood PT INR Whole Blood INR APTT Anion Gap Estim Creat Clear Calc Estimated GFR POC Glucose 76 Random Glucose Lactic Acid Calcium Total Bilirubin Direct Bilirubin AST ALT Alkaline Phosphatase Ammonia 34 Troponin I High Sens Total Protein Albumin Triglycerides Cholesterol LDL Cholesterol, Calc HDL Cholesterol Urine Color Urine Appearance Urine pH Ur Specific [place] Urine Protein Urine Glucose (UA) Urine Ketones Urine Blood Urine Nitrite Ur Leukocyte Esterase Urine RBC Urine WBC Ur Squamous Epith Cells Urine Bacteria Hyaline Casts Imaging Radiologist's Impressions: Impressions Head CT 07/01/24 09:22 IMPRESSION: No acute intracranial pathology. Atrophy with mild change of chronic small vessel ischemic disease and white matter. This critical result was discussed with Harleen Davila at 1011 hours on July 01, 2024. It was ascertained that the content and urgency of the report was understood at the time of direct communication. Electronically signed by: Félix Heller MD 07/01/2024 10:12 AM [facility] Head/Neck CTA 07/01/24 10:00 IMPRESSION: 1. Unchanged age related cerebral atrophy and ventriculomegaly. 2. No intracranial hemorrhage or skull fracture is seen. 3. No evidence of space occupying or enhancing intracranial mass lesion could be found. 4. The current plain CT scan of the brain shows no diagnostic evidence of acute cerebral infarction. EXAMINATION: CT angiogram of brain. COMPARISON: None available. FINDINGS: There is normal visualization of bilateral anterior, middle and posterior cerebral arteries, internal carotid arteries, basilar artery and terminal portions of bilateral vertebral arteries. Anterior communicating artery is normal. Bilateral posterior communicating arteries are normal. Bilateral internal carotid siphons containing extensive tram track shape atherosclerotic calcifications without causing hemodynamically significant stenosis. Timing of the bolus allows assessment of the major dural venous sinuses. The major cerebral venous sinuses show normal contrast filling. IMPRESSION: 1. Normal CT angiogram of the brain. 2. No focal cerebral arterial lesion or significant arterial stenosis is seen. EXAMINATION: CT angiogram of neck. COMPARISON: None available. STENOSIS MEASUREMENT: Degree of stenosis was measured and calculated based on NASCET criteria. Carotid stenosis reference using NASCET criteria: % stenosis = (1 - narrowest ICA diameter/diameter of distal cervical ICA) x 100. Mild - < 50% stenosis. Moderate - 50-69% stenosis. Severe - 70-94% stenosis. Near occlusion - 95-99% stenosis. Occluded - 100% stenosis. FINDINGS: RIGHT SIDE: Right internal carotid artery: Smoothly patent. Focal calcified atherosclerotic plaque is seen at the medial wall origin without causing hemodynamically significant stenosis. The right internal carotid artery is markedly tortuous, crossing over the right medial posterior oral pharyngeal wall all the way up to the level of soft palate. Right external carotid artery: Smoothly patent. Right common carotid artery: Smoothly patent. Right vertebral artery: Smoothly patent. LEFT SIDE: Left internal carotid artery: Smoothly patent and tortuous. Calcified atherosclerotic plaques are seen at origin and bulb of left internal carotid artery without causing hemodynamically significant stenosis. Left external carotid artery: Smoothly patent. Left common carotid artery: Smoothly patent. Left vertebral artery: Smoothly patent and dominant. At the superior mediastinum, the visualized right innominate artery, bilateral subclavian arteries and common carotid arteries are smoothly patent starting from the origin at the aortic arch. A tiny 0.7 cm hypodense nodule is seen in anterior left thyroid lobe. IMPRESSION: 1. Normal CT angiogram of the neck. No evidence of significant carotid stenosis. 2. Patent bilateral vertebral arteries with left-sided dominance. This critical result was reported through learning program manager to NIXON Maza on 07/01/2024 at 1230 hours EST and it was ascertained that the content and urgency of this report was understood at the time of direct communication. Electronically signed by: Angelica Emmanuel MD 07/01/2024 12:32 PM EST Assessment and Plan (1) Acute encephalopathy: Status: Acute (2) Anomia: Status: Acute Plan Pt is a 78-year-old male with a PMH significant for?HLD, insulin-dependent type 2 diabetes, BPH, obesity class III, hx of gastric banding w/reversal, chronic lower back pain, and ANKIT not compliant with CPAP who presents to the ED with?acute encephalopathy and difficulty word finding. Pt will be admitted to the hospital for treatment and further evaluation of acute encephalopathy and difficulty word finding concerning for CVA. Acute encephalopathy Patient with confusion and difficulty word finding since this morning Last known well time last night at midnight Concerning for CVA CT of head and CTA of head/neck negative for acute abnormality UA negative; CXR pending Continue aspirin, statin MRI of head/brain Hold on echocardiogram pending neurology Lipid profile WNL PT/OT/speech therapy Monitor on telemetry Hypoglycemia Pt with POCs in the 50s last night, [address] on sliding scale Hold metformin, Jardiance Diabetic diet HTN Continue metoprolol Chronic back pain Continue home opioids Full Code Attending:?Dr. Skinner DVT Prophylaxis: Lovenox Pt will require a hospitalization of at least two nights for treatment of acute encephalopathy with difficulty word finding concerning for CVA. Quality Stroke Does the patient have a stroke diagnosis?: No Reason for No Anti-thrombotic by Day Two: Contraindicated (Last known well time midnight; pt outside of tNK window) VTE Prior VTE?: No VTE Risk Level:: Medical - moderate - high VTE Device Contraindication: Treatment Not Indicated VTE Drug Contraindication: N/A - Med Ordered
[2024-07-01 14:15] LABS: Influenza A PCR NEGATIVE (Negative); Influenza B PCR NEGATIVE (Negative); Resp Syncy Virus RNA Qual PCR NEGATIVE (Negative); SARS COV2 PCR INHOUSE NEGATIVE (Negative)
[2024-07-01 14:24] LABS: Glucose, Whole Blood 94 mg/dL (60-115)
[2024-07-01] MEDS: Butalb/Acetamin/Caff 50/325/40 TABLET 1 TAB PO (16:24)
[2024-07-01] MEDS: 0.9 % Sodium Chloride Flush 3 ML SYRINGE IVFLUSH (16:30)
[2024-07-01 16:35] LABS: Glucose, Whole Blood 138 mg/dL (60-115)
--- NOTE | 2024-07-01 16:35 | PHA.MEDREC ---
Addendum entered by Allan Schofield [facility] 07/01/24 17:27: Med rec reviewed Original Note: Pharmacy Consult ? Medication Reconciliation Pharmacy has completed the medication reconciliation. Spoke with patients son at bedside who brought in Rx bottles for some of the medications. The only medication he did not have on hand for his dad was the Amlodipine 10 mg tab or Amoxicillin-Potassium. I asked about those and the patients son was no help and did not know what his dad was taking other then what he grabbed for Rx bottles. He was pretty sure that his dad is not taking any Anti-Biotics at this time even when I asked if it was Amoxicillin-Potassium. He confirmed his dad is taking Insulin but him or his dad did not know that name of that right now or the exact dose but stated his dad claims he took 60 units last night before bed but states he should only be doing 40 units . I called and spoke to [facility] who at first confirmed the last time he got any insulin was December 25 for Toujeo 300/mL injecting 70 units at bedtime and they also state he got Humalog filled December 02 injecting it three times a day before meals but has not filled that since, speaking with the son he confirmed he is only taking one insulin injecting it at bedtime not three times a day. I called [facility] back since claims has a recent claim for Toujeo 300/mL back on April 21 injecting 60 units for 22 days and they were able to see that in their claims and they confirmed the patient picked that up on that day. [facility] also confirmed the patient picked up the Amlodipine 10mg tab taking 1 tab daily 05/05 for 90 days and there has no indicator that the patient is stopping it at their facility. They also confirmed the patient picked up the Amoxicillin-Potassium on 06/23 along with 3 other mediations that day. The son confirmed his dad orange picker Oxycodone 5mg tabs last week after getting dental work done and states he has it at home but never ended up taking it. The confirmed his dad is taking Monjaro and confirmed he gets a total of 15mg once a week on Tuesdays and states he took it last last Saturday 06/23. The son was not sure when his dad took all his medications last, he knew he did not take anything this morning and the only thing he knew of him taking is the Insulin.
[2024-07-01 21:14] LABS: Glucose, Whole Blood 148 mg/dL (60-115)
[2024-07-01] MEDS: Metoprolol Succinate ER 100 MG TAB.ER.24H PO (21:17)
[2024-07-01] MEDS: Insulin Glargine,Hum.rec.anlog 100 UNIT/ML 10 ML VIAL 42 UNIT SUBCUT (21:17)
[2024-07-01] MEDS: Diclofenac Sodium Delayed Rel 75 MG TABLET.DR PO (22:07)
--- NOTE | 2024-07-02 | EEG_ITS ---
This is a 16 channel EEG with an EKG lead. The patient is reported awake during the tracing. Background EEG rhythm is medium amplitude mixed theta beta with rare right temporal sharp and slow wave. Localization seems to be T4. Photic stimulation does not produce any significant abnormality. Hyperventilation is not performed. Cardiac lead does not reveal any significant abnormality. IMPRESSION: Mildly abnormal EEG suggestive of underlying tendency for complex partial seizure disorder. MD CLIFFORD Pinto/JESUS / [id number]
[2024-07-02 01:46] VITALS: BMI 39.9
[2024-07-02 01:49] VITALS: BP 128/62; PULSE 83; RESP 20; TEMP 36.6; O2SAT 92
[2024-07-02 03:56] VITALS: BP 130/57; PULSE 107; RESP 20; TEMP 36.6; O2SAT 93
[2024-07-02 07:26] VITALS: BP 119/59; PULSE 69; RESP 18; TEMP 36.7; O2SAT 93
[2024-07-02 07:31] LABS: Glucose, Whole Blood 78 mg/dL (60-115)
[2024-07-02] MEDS: Lactulose 20 GM/30 ML SOLUTION 10 GM PO (08:52)
[2024-07-02] MEDS: Metoprolol Succinate ER 100 MG TAB.ER.24H PO (08:53)
[2024-07-02] MEDS: Aspirin Enteric Coated 81 MG TABLET.DR PO (08:53)
[2024-07-02] MEDS: amLODIPine Besylate 10 MG TABLET PO (08:53)
[2024-07-02] MEDS: Empagliflozin 10 MG TABLET PO (08:53)
[2024-07-02] MEDS: Atorvastatin Calcium 40 MG TABLET PO (08:53)
[2024-07-02] MEDS: Diclofenac Sodium Delayed Rel 75 MG TABLET.DR PO (08:53)
[2024-07-02] MEDS: 0.9 % Sodium Chloride Flush 3 ML SYRINGE IVFLUSH (08:54)
[2024-07-02] MEDS: Docusate Sodium 100 MG CAPSULE 200 MG PO (08:54)
--- NOTE | 2024-07-02 09:10 | PM.NEUROCN ---
History of Present Illness Data of Consult Service Date: 07/02/24 Primary Care Provider: Unknown Physician HPI Reason for consult: Encephalopathy 78-year-old male with a PMH significant for?HLD, insulin-dependent type 2 diabetes, BPH, obesity class III, hx of gastric banding w/reversal, chronic lower back pain, and ANKIT not compliant with CPAP who presents to the ED with change in mental status. Apparently his son noted that this was going on. He was not making any sense. This morning he was feeling better telling me that he spoke 6 languages but the other day he was confused. He said that he was having mild headache. He denied taking alcohol or any new drug or any other chemical. He said that he was not medically sick with things like cold or flu or urinary problem. He was not under any significant stress or new stress Review of Systems Review of Systems: As per HPI [facility] Past Medical History Medical History Low back pain BPV (benign positional vertigo) ANKIT (obstructive sleep apnea) Depression Obesity Diabetes Surgical History Surgical History Hx of laparoscopic gastric banding Hx of cholecystectomy Social History Social History Household Members: None Housing: House Do you presently have visiting nurse or other home services: No Alcohol intake: never Patient Tobacco Use Status: Never used Tobacco Smoked in Last 30 Days: No Use of substances other than those prescribed or required for medical reasons: No Have you been hit, kicked, punched, or otherwise hurt by someone within the past year? If so, by whom?: No Do you feel safe in your current relationship?: No Current Relationship Is there a partner from a previous relationship who is making you feel unsafe now?: No Are you made to feel afraid or neglected: No Advance Directives: No Do you have a plan to hurt others: No Plan Recently lost weight without trying: No Nutrition Risks: No Nutritional Risk Poor oral hygiene: No Meds Allergies Allergy/AdvReac Type Severity Reaction Status Date / Time Penicillins Allergy Unknown Swelling Verified 07/01/24 09:11 Sulfa (Sulfonamide Allergy Unknown Swelling Verified 07/01/24 09:11 Antibiotics) Active Medications: Current Medications Acetaminophen (Acetaminophen 325 Mg Tablet) 650 mg PO Q6H PRN PRN Reason: Pain, Mild (Pain Scale 1-3), fever or headache Acetaminophen/Butalbital/Caffeine (Butalb/Acetamin/Caff 50/325/40 Tablet) 1 tab PO Q4H PRN PRN Reason: Migraine Headache Last Admin: 07/01/24 16:24 Dose: 1 tab Amlodipine Besylate (Amlodipine Besylate 10 Mg Tablet) 10 mg PO DAILY [facility]; Protocol Last Admin: 07/02/24 08:53 Dose: 10 mg Aspirin (Aspirin Enteric Coated 81 Mg Tablet.) 81 mg PO DAILY [facility] Last Admin: 07/02/24 08:53 Dose: 81 mg Atorvastatin Calcium (Atorvastatin Calcium 40 Mg Tablet) 40 mg PO DAILY [facility] Last Admin: 07/02/24 08:53 Dose: 40 mg Benzonatate (Benzonatate 100 Mg Capsule) 100 mg PO TID PRN PRN Reason: Cough Calcium Carbonate (Calcium Carbonate 750 Mg Tab.Chew) 750 mg PO Q4H PRN PRN Reason: Heartburn Diclofenac Sodium (Diclofenac Sodium Delayed Rel 75 Mg Tablet.) 75 mg PO BID [facility] Last Admin: 07/02/24 08:53 Dose: 75 mg Docusate Sodium (Docusate Sodium 100 Mg Capsule) 200 mg PO DAILY [facility] Last Admin: 07/02/24 08:54 Dose: 200 mg Empagliflozin (Empagliflozin 10 Mg Tablet) 10 mg PO DAILY [facility] Last Admin: 07/02/24 08:53 Dose: 10 mg Enoxaparin Sodium (Enoxaparin Sodium 40 Mg/0.4 Ml Syringe) 40 mg SUBCUT Q24H [facility] Last Admin: 07/01/24 15:51 Dose: Not Given Glucose (Glucose Gel 15 Gm Gel..Gram.) 15 gm PO Q15M PRN; Protocol PRN Reason: per Hypoglycemia Standing Ord. Dextrose (D10) 250 mls @ 750 mls/hr IV Q15M PRN; Protocol PRN Reason: per Hypoglycemia Standing Ord. Insulin Glargine (Insulin Glargine,Hum.Rec.Anlog 100 Unit/Ml 10 Ml Vial) 42 unit SUBCUT BEDTIME [facility] Last Admin: 07/01/24 21:17 Dose: 42 unit Insulin Human Lispro (Insulin Lispro 100 Unit/Ml 3 Ml Vial) 0 unit SUBCUT QIDACHS [facility]; Protocol Last Admin: 07/02/24 08:47 Dose: Not Given Lactulose (Lactulose 20 Gm/30 Ml Solution) 10 gm PO DAILY [facility] Last Admin: 07/02/24 08:52 Dose: 10 gm Magnesium Hydroxide (Milk Of Magnesia 30 Ml Oral.Susp) 30 ml PO DAILY PRN PRN Reason: Constipation Melatonin (Melatonin 3 Mg Tablet) 6 mg PO BEDTIME PRN PRN Reason: Insomnia Metoprolol Succinate (Metoprolol Succinate Er 100 Mg Tab.Er.24h) 100 mg PO BID [facility]; Protocol Last Admin: 07/02/24 08:53 Dose: 100 mg Ondansetron HCl (Ondansetron Hcl 4 Mg/2 Ml Vial) 4 mg IVPUSH Q8H PRN PRN Reason: Nausea and Vomiting Sodium Chloride (0.9 % Sodium Chloride Flush 3 Ml Syringe) 3 ml IVFLUSH QSHIFT [facility] Last Admin: 07/02/24 08:54 Dose: 3 ml Home Medications ?Medication ?Instructions ?Recorded ?Confirmed ?Last Taken ?Type aspirin 81 mg tablet,delayed 1 tab PO DAILY 05/23/20 07/01/24 1 Day Ago History release ~06/30/24 atorvastatin 40 mg tablet 1 tab PO DAILY 05/23/20 07/01/24 1 Day Ago History ~06/30/24 metformin 500 mg tablet 2 tab PO BID 05/23/20 07/01/24 1 Day Ago History ~06/30/24 empagliflozin 10 mg tablet 10 mg PO DAILY 10/29/23 07/01/24 1 Day Ago History (Jardiance) ~06/30/24 acetaminophen 500 mg tablet 500 mg PO Q4-6H PRN Pain 07/01/24 07/01/24 Unknown History amlodipine 10 mg tablet 10 mg PO DAILY 07/01/24 07/01/24 1 Day Ago History ~06/30/24 diclofenac sodium 75 mg 75 mg PO BID 07/01/24 07/01/24 1 Day Ago History tablet,delayed release ~06/30/24 docusate sodium 100 mg capsule 200 mg PO DAILY 07/01/24 07/01/24 1 Day Ago History ~06/30/24 ibuprofen 600 mg tablet 600 mg PO Q6-8H PRN Pain 07/01/24 07/01/24 Unknown History insulin glargine U-300 conc 300 60 unit subcut BEDTIME 07/01/24 07/01/24 06/30/24 History unit/mL (1.5 mL) subcutaneous pen (Toujeo SoloStar U-300 Insulin) lactulose 10 gram/15 mL oral 15 ml PO DAILY 07/01/24 07/01/24 1 Day Ago History solution ~06/30/24 metoprolol succinate 100 mg 100 mg PO BID 07/01/24 07/01/24 06/30/24 History tablet,extended release 24 hr tirzepatide 15 mg/0.5 mL 15 mg subcut TU 07/01/24 07/01/24 06/23/24 History subcutaneous pen injector (Mounjaro) Physical Exam Vital Signs: Vital Signs: Last Vital Signs Temp 98.0 F 07/02/24 07:26 Pulse 69 07/02/24 07:26 Resp 18 07/02/24 07:26 BP 119/59 L 07/02/24 07:26 Pulse Ox 93 07/02/24 07:26 O2 Del Method Room Air 07/02/24 07:26 BMI result Body Mass Index 39.9 Neuro: Other: He is alert and awake with normal spontaneity of speech with normal comprehension and affect. Face is symmetrical. Visual colon are full. There is no obvious focal arm or leg weakness. Deep tendon reflexes are absent in legs with flexor plantars. Speech is normal. Results Labs 07/01/24 09:40 07/01/24 09:40 Labs: Short CBC 07/01/24 Range/Units 09:40 WBC 9.1 (4.8-10.8) X10*3/uL Hgb 15.3 (14.0-18.0) g/dl Hct 44.5 (42.0-52.0) % Plt Count 245 (160-400) X10*3/uL BMP 07/01/24 09:40 Sodium 138 Potassium 3.9 Chloride 104 Carbon Dioxide 25 BUN 18 H Creatinine 0.86 Calcium 9.6 Liver Function 07/01/24 Range/Units 09:40 Total Bilirubin 0.6 (0.0-1.0) mg/dL Direct Bilirubin 0.3 (0.0-0.5) mg/dL AST 32 (5-37) U/L ALT 27 (0-40) U/L Alkaline Phosphatase 77 (39-117) U/L Albumin 3.9 (3.5-5.0) g/dL Urine 07/01/24 Range/Units 10:38 Urine Color Yellow Urine Appearance Clear Urine pH 6.5 (5.0-9.0) Ur Specific Rudyard >= 1.030 H (1.005-1.025) Urine Protein Negative (Neg-Trace) mg/dL Urine Glucose (UA) >=1000 H (Negative) mg/dL MRI of brain revealed moderately severe diffuse cerebral central cortical atrophy and mild chronic microvascular ischemic changes with no obvious acute lesion. CTA of brain and neck did not reveal any vascular lesion. EKG revealed sinus rhythm with first-degree AV block. Laboratories were okay. UA was okay. Assessment and Plan (1) Acute encephalopathy: Status: Acute 78 years old man with strong underlying intellectual ability was brought to hospital with acute confusion. He denied taking any chemical or alcohol and no obvious metabolic or toxic etiology was found. His brain imaging has revealed significant atrophy that typically could result in dementia type cognitive difficulties but this particular episode was different. My recommendation is to obtain an EEG to rule out seizure disorder, which was not uncommon this type of patient. Procedures Date of Service Date of Service: 07/02/24
[2024-07-02 09:42] VITALS: BP 119/59; PULSE 69; O2SAT 93
--- NOTE | 2024-07-02 09:50 | MHC.CM.PN ---
Addendum entered by Addie Palafox RN 07/02/24 12:46: PER [facility] PT ALSO ACTIVE W/[facility] M-5, [employer] [employer] 13.5HRS/WK, REFERRAL FO [facility] PLACED. Addendum entered by Addie Palafox RN 07/02/24 09:56: ANTIC PT WILL BE MEDICALLY CLEARED FOR DC TODAY, PT TO ARRANGE TRANSPORT Original Note: IMM 07/02/24, EMR REVIEWED PT ADMITTED W/CONFUSION/?CVA, SYMPTOMS HAVE RESOLVED AND CM MET W/PT WHO REPORTS HE LIVES W/HIS 3 MALE CATS, IS FULLY INDEP W/ALL CARE, DENIES USE OF DME EXCEPT DIABETIC SUPPLIES AND IS INSULIN DEP, PT DENIES HOME SERVICES OTHER THAN A CLEANING LADY TWICE A WEEK, PT REPORTS HE WOULD LIKE TO LEAVE SOON POSSIBLE AND P.T/O.T. RECOMMEND NO HOME SERVICES. PCP VERIFIED DR. KEITH LAZCANO AT [facility] AND [facility] [phone] IS PT'S HCP, COPY REQUESTED.
[2024-07-02 11:12] VITALS: BP 112/56; PULSE 75; RESP 18; TEMP 36.7; O2SAT 98
[2024-07-02 11:33] LABS: Glucose, Whole Blood 188 mg/dL (60-115)
[2024-07-02] MEDS: Insulin Lispro 100 UNIT/ML 3 ML VIAL SUBCUT (12:30)
[2024-07-02 15:07] VITALS: BP 131/79; PULSE 75; RESP 18; TEMP 36.2; O2SAT 96
--- NOTE | 2024-07-02 15:08 | PM.DS ---
DS: Providers Provider Date of Service: 07/02/24 Date of admission: 07/01/24 13:55 Date of discharge: 07/02/24 Primary care physician: Unknown Physician Consults: 07/01/24 13:58 Consult to Neurology Routine Consulting Provider: [facility] Reason for consultation: Acute encephalopathy, ?CVA DS: Diagnosis Discharge Diagnosis (1) Acute encephalopathy: Status: Acute DS: Summary Hospital Course Hospital Course: History of presenting illness: Date of Service: 07/01/24 Attending physician on admission: Akbar Skinner Chief Complaint: Confusion Pt is a 78-year-old male with a PMH significant for?HLD, insulin-dependent type 2 diabetes, BPH, obesity class III, hx of gastric banding w/reversal, chronic lower back pain, and ANKIT not compliant with CPAP who presents to the ED with?acute encephalopathy and difficulty word finding. Patient is alert and oriented to self only at time of interview and exam and thus incapable of providing accurate HPI which is instead supplemented by phone call to son/HCP. Last night around midnight patient apparently called his son stating that his blood sugars were low and that he could not get up out of bed. Patient had not been eating much and apparently given himself too much insulin. Son provided patient with snacks and blood sugars came up from the mid 50s to the mid 70s. Son stated there was no obvious confusion at that time. This morning at 08:00 son reports patient called him again and said ?I've gone insane and don't know where my car is. Son called EMS and arrived at the patient's home find him acutely confused. Patient is normally alert and oriented x4. Patient had no other obvious acute medical complaints recent illnesses. Son states patient has never had a similar episode of confusion before. He has, though, been hypoglycemic a number of times in the past. In the ED pt was hypertensive up to 154/79, vitals otherwise WNL and stable. Labs were grossly unremarkable and baseline for patient. No leukocytosis. Stable H&H. No significant electrolyte abnormalities. Renal function baseline. Hepatic function baseline. POC 76. Lactic acid WNL. Troponin WNL at 2.9. Ammonia WNL at 34. UA negative for UTI. CXR official read pending. CT?no acute intracranial pathology, though showed atrophy with mild change of chronic small-vessel ischemic disease and white matter. CTA of head negative for acute abnormality. CTA of neck negative for significant carotid stenosis. EKG demonstrated sinus rhythm first-degree AV block and PACs. Pt was treated with acetaminophen. Pt will be admitted to the hospital for treatment and further evaluation of acute encephalopathy and difficulty word finding concerning for CVA. Hospital course: 78-year-old male with a PMH significant for?HLD, insulin-dependent type 2 diabetes, BPH, obesity class III, hx of gastric banding w/reversal, chronic lower back pain, and ANKIT not compliant with CPAP who presents to the ED with?acute encephalopathy and difficulty word finding admitted to the hospital for treatment and further evaluation of Acute encephalopathy. Acute encephalopathy underwent extensive testing,CT of head and CTA of head/neck negative for acute abnormality,UA negative; CXR pending, MRI of head and brain showed global cerebral atrophy, normal lipid profile, patient seen by Dr. Gamble he recommended EEG to rule out seizure, EEG is unremarkable, likely confusion was related to hypoglycemia since patient admitted of taking additional dose of insulin due to elevated blood sugars of 300 and soon after taking both long acting and short acting insulin he felt more confused and was noted to have blood sugars and 50s, all symptoms of confusion resolved patient is back to baseline, evaluated by Physical therapy/OT and speech therapy they all cleared and recommended no further therapy He is recommended to continue all home medications as before and avoid hypoglycemia. Diabetes mellitus Hypoglycemia likely due to extra dosage of insulin, hypoglycemia resolved, recommend to continue home medications including metformin, Jardiance and Lantus, recommend to avoid additional dosage of insulin Monitor blood sugars and follow-up with primary care physician if noted to have elevated blood sugars to adjust baseline dose of insulin. HTN stable blood pressure recommend to continue home medications including metoprolol and Norvasc. Chronic back pain continue home medications including opiates and Voltaren recommend to avoid additional NSAIDs. Time Attestation Discharge Coordination Time (in mins): 40 Quality: Safe Use of Opioids Does Pt have an Active Cancer Diagnosis on the Problem List?: No Quality: Stroke Does the patient have a stroke diagnosis?: No Physical Exam Vital Signs: Vital Signs: Last Vital Signs Temp 98.1 F 07/02/24 11:12 Pulse 75 07/02/24 11:12 Resp 18 07/02/24 11:12 BP 112/56 L 07/02/24 11:12 Pulse Ox 98 07/02/24 11:12 O2 Del Method Room Air 07/02/24 11:12 BMI result Body Mass Index 39.9 Const: Other: General in no acute distress. Neck no JVD. CVS regular rate rhythm, Respiratory lungs clear to auscultation, no respiratory distress, no wheeze, no rhonchi. Gastrointestinal abdomen soft, obese, non tender, bowel sounds audible, no guarding , no rigidity. Extremities no edema. Neuro non focal , moving all 4 extremity, speech clear. Skin no rash Appropriate affect DS: Data Data Completed and Pending Labs on day of discharge: Laboratory Results - last 24 hr 07/01/24 07/01/24 07/02/24 16:28 21:10 07:27 POC Glucose 138 H 148 H 78 07/02/24 11:14 POC Glucose 188 H Preliminary micro results at discharge 07/01/24 09:41 Blood Culture - Preliminary Blood - Venous No growth after 24 hours. 07/01/24 09:40 Blood Culture - Preliminary Blood - Venous No growth after 24 hours. Discharge Plan Discharge Anticipated Discharge Date/Time: 07/02/24 15:56 Patient Disposition: Home Health Service Discharge Diagnosis: Acute toxic metabolic encephalopathy Referrals: Ashtyn Mcmahon MD [Physician] - 1 Week Discharge Medications: Continued atorvastatin 40 mg tablet 1 tab PO DAILY metformin 500 mg tablet 2 tab PO BID aspirin 81 mg tablet,delayed release (DR/EC) 1 tab PO DAILY acetaminophen 500 mg tablet 500 mg PO Q4-6H PRN (Reason: Pain) amlodipine 10 mg tablet 10 mg PO DAILY docusate sodium 100 mg capsule 200 mg PO DAILY diclofenac sodium 75 mg tablet,delayed release (DR/EC) 75 mg PO BID lactulose 10 gram/15 mL solution 15 ml PO DAILY insulin glargine U-300 conc [Toujeo SoloStar U-300 Insulin] 300 unit/mL (1.5 mL) insulin pen 60 unit subcut BEDTIME Mounjaro 15 mg/0.5 mL pen injector 15 mg subcut TU metoprolol succinate 100 mg tablet extended release 24 hr 100 mg PO BID Jardiance 10 mg tablet 10 mg PO DAILY Discontinued ibuprofen 600 mg tablet 600 mg PO Q6-8H PRN (Reason: Pain) Discharge Orders: Discharge Order (Routine); Ordered 07/02/24 Ordered By: Akbar Skinner Diet: Diabetic diet Activity on Discharge: As tolerated Stand Alone Forms: Patient Portal Discharge page Print Language: Jamaican Care Plan Goals: Acute confusion resolved was likely due to hypoglycemia due to taking additional dose of insulin EEG normal No acute stroke Recommend to monitor blood sugar and avoid additional dosages of blood sugars if blood sugar elevated keep a log and follow-up with PCP Avoid Motrin while on Voltaren high risk for GI bleed and kidney disease. Health Concerns: as above Plan of Treatment: Outpatient follow-up with primary care physician call for appointment Assessment: As above Patient Instructions: Transient Ischemic Attack (ED)
[2024-07-02 16:35] LABS: Glucose, Whole Blood 241 mg/dL (60-115)
== END 2024-07-02 19:29 | disposition home health service (06) | DRG 917 ==
LOC: HO.ED 12:59 → HO.EDOVER 14:02 → HO.IMC 07-02 00:25
PROVIDERS: Physician Assistant Medical; Admitting Provider Student in an Organized Health Care Education/Training Program; Emergency Provider Emergency Medicine; Visit Provider Hospitalist
DX: T38.3X1A Poisoning by insulin and oral hypoglycemic [antidiabetic] drugs, accidental (unintentional), initial encounter (principal); G92.8 Other toxic encephalopathy; E78.5 Hyperlipidemia, unspecified; M54.9 Dorsalgia, unspecified; G89.29 Other chronic pain; E11.649 Type 2 diabetes mellitus with hypoglycemia without coma; F79 Unspecified intellectual disabilities; I10 Essential (primary) hypertension; N40.0 Benign prostatic hyperplasia without lower urinary tract symptoms; E66.813 Obesity, class 3; Z68.39 Body mass index [BMI] 39.0-39.9, adult; Z20.822 Contact with and (suspected) exposure to COVID-19; Z79.4 Long term (current) use of insulin; Z79.82 Long term (current) use of aspirin; Z79.84 Long term (current) use of oral hypoglycemic drugs; Z79.899 Other long term (current) drug therapy
CPT/HCPCS: 0241U; 36415; 70450; 70496; 70498; 70551; 71045; 80048; 80061; 80076; 81001; 82140; 82947; 83605; 84484; 85025; 85610; 85730; 87040; 93005; 95816; 97116; 97162; 97166; 97530; 99285; J0131; Q9967

== ENCOUNTER → 2024-07-01 09:22 | Outpatient (BNV) | payer OTHER, SELFPAY | PROVIDERS: Admitting Provider Student in an Organized Health Care Education/Training Program; Emergency Provider Emergency Medicine; Visit Provider Internal Medicine Cardiovascular Disease | DX: R94.31 Abnormal electrocardiogram [ECG] [EKG] (principal) | CPT/HCPCS: 93010 ==

== ENCOUNTER → 2024-07-01 13:55 | Outpatient (BNV) | payer OTHER, SELFPAY | PROVIDERS: Admitting Provider Student in an Organized Health Care Education/Training Program; Emergency Provider Emergency Medicine; Visit Provider Student in an Organized Health Care Education/Training Program | DX: G93.40 Encephalopathy, unspecified (principal); R48.8 Other symbolic dysfunctions | CPT/HCPCS: 99223; 99239 ==

== ENCOUNTER → 2024-07-01 13:55 | Outpatient (BNV) | payer OTHER, SELFPAY | PROVIDERS: Admitting Provider Student in an Organized Health Care Education/Training Program; Emergency Provider Emergency Medicine; Visit Provider Psychiatry & Neurology Neurology | DX: G93.40 Encephalopathy, unspecified (principal) | CPT/HCPCS: 99223 ==

== ENCOUNTER 2024-08-01 12:39 | Inpatient (IN) | payer OTHER, SELFPAY ==
--- NOTE | 2024-08-01 | EEG_ITS ---
This is a 16-channel EEG with an EKG lead. The patient is reported confused during the tracing. Background EEG rhythm is medium amplitude; mixed theta, beta with no obvious asymmetry or paroxysmal tendency. Photic stimulation does not produce any significant abnormality. Hyperventilation was not performed. Cardiac lead did not reveal any significant abnormality. IMPRESSION: Mild generalized slowing with no evidence of seizure disorder. MD CLIFFORD Pinto/JESUS / [id number]
--- NOTE | 2024-08-01 | ECG_ITS ---
Test Reason : RECHECK PROLONG QTC Blood Pressure : */* mmHG Vent. Rate : 87 BPM Atrial Rate : 87 BPM P-R Int : 248 ms QRS Dur : 96 ms QT Int : 412 ms P-R-T Axes : 47 -30 -27 degrees QTcB Int : 495 ms Sinus rhythm with 1st degree A-V block Left axis deviation Low voltage QRS Incomplete right bundle branch block Nonspecific T wave abnormality Prolonged QT Abnormal ECG When compared with ECG of 01-Aug-2024 13:52, Nonspecific T wave abnormality, worse in Inferior leads T wave inversion now evident in Lateral leads QT has shortened Referred By: Ela Lees Electronically Signed By: FRANK VELÁZQUEZ
--- NOTE | ~2024-08-01 | XR_ITS ---
CLINICAL HISTORY: confusion, recent URI Chest Radiographs, 2 views Comparison: 07/01/24 and 05/23/20 Findings: No cardiomegaly. Normal mediastinal contours. No pneumothorax. No opacity. No pleural effusion. Normal upper abdomen. No acute fracture. Impression: No acute findings. This document has been electronically signed by: Sirisha Stacy MD on 08/01/2024 15:05:24
--- NOTE | ~2024-08-01 | CT_ITS ---
CLINICAL HISTORY: ams, confusion CT head without contrast Comparison: MR/SR - MR HEAD/BRAIN WO CON - 07/01/24 17:[address]/UT - CT ANGIO HEAD NECK STROKE - 07/01/24 09:[address]/UT/SR - CT HEAD FOR STROKE - 07/01/24 09:52 EST Findings: No acute hemorrhage. No extra-axial fluid collection. No hydrocephalus, mass-effect or herniation. Cummings-white differentiation is maintained. White matter is within normal limits for age. No acute orbital pathology. No acute soft tissue abnormality. No fracture. The visualized paranasal sinuses are predominantly clear. The mastoid air cells are clear. Impression: No acute findings. This document has been electronically signed by: Sirisha Stacy MD on 08/01/2024 15:49:45
--- NOTE | ~2024-08-01 | CT_ITS ---
CLINICAL HISTORY: RLQ tenderness CT abdomen and pelvis with contrast Comparison: None Findings: No consolidation at the lung bases. Cardiomegaly. Calcified coronary artery disease. Mild calcification of the aortic valve. Status post cholecystectomy. Underdistended bladder. Question punctate calcification in the wall of the bladder or adjacent to it (series 16, image 47). No bladder stone. Motion limits evaluation of the kidneys; focal decreased enhancement can not be excluded. Renal cysts and bilateral subcentimeter low attenuating lesions which are too small to characterize. The other solid organs are unremarkable. Small hiatal hernia. No bowel wall thickening or dilation. The appendix is not visualized. No secondary signs of acute appendicitis. Colonic diverticulosis. No aneurysm. Severe calcified atherosclerotic disease. No lymphadenopathy. No ascites. No acute osseous abnormality. Impression: The appendix is not visualized. No secondary signs of acute appendicitis Motion limits evaluation of the kidneys. Decreased enhancement of the kidneys can not be excluded; correlate with urinalysis to exclude pyelonephritis. This document has been electronically signed by: Sirisha Stacy MD on 08/01/2024 16:04:36
[2024-08-01 12:54] VITALS: BP 138/89; BP 144/90; PULSE 104; PULSE 97; RESP 18; TEMP 36.7; O2SAT 95; O2SAT 96; BMI 42.7
--- NOTE | 2024-08-01 13:24 | MHC.EDTECH ---
pt was assisted out of bed to use urinal. pt was standing with a steady gait with assistance from family member and robert roper RN made aware
[2024-08-01 13:32] LABS: Appearance Urine Clear; Color Urine Yellow; Glucose Urine UA >=1000 mg/dL (Negative); Leukocyte Esterase Urine Negative (Negative); Nitrite Urine Negative (Negative); UMIC TRIGGER UACC YES; Urine Blood Negative (Negative); Urine Ketones Trace mg/dL (Negative); Urine Protein Negative (Neg-Trace)
[2024-08-01 13:35] LABS: Bacteria Urine None Seen (None Seen); Hyaline Casts Urine 0-2 /LPF (0-2); RBC Urine 0-2 /HPF (0-2); Squamous Epithelial Cell Urine 0-2 /HPF (0-2); WBC Urine 0-5 /HPF (0-5)
--- NOTE | 2024-08-01 13:44 | ECG_ITS ---
Test Reason : AMS Blood Pressure : */* mmHG Vent. Rate : 90 BPM Atrial Rate : 90 BPM P-R Int : 250 ms QRS Dur : 92 ms QT Int : 340 ms P-R-T Axes : 54 -36 36 degrees QTcB Int : 416 ms Sinus rhythm with 1st degree A-V block Left axis deviation Incomplete right bundle branch block Abnormal ECG When compared with ECG of 01-Jul-2024 09:35, Criteria for Anterior infarct are no longer Present Referred By: Mirian Yu Electronically Signed By: FRANK VELÁZQUEZ
--- NOTE | 2024-08-01 13:44 | ED.GENADULT ---
HPI - General Adult General Chief complaint: General Medical Stated complaint: WEAK PER EMS Time Seen by Provider: 08/01/24 13:43 Source: patient, family (son), EMS, RN notes reviewed and old records reviewed Mode of arrival: EMS Limitations: no limitations History of Present Illness ED Provider: Gigi HPI narrative: Patient is a 78-year-old primarily Yemeni speaking male who also understands Citizen [place] with history of DM, ANKIT, BPPV presenting to the emergency department with son who reports that patient has been confused since some time last night/this am. States he spoke to patient on the phone yesterday and patient sounded normal. This morning, when son arrived to his apartment, patient was confused, was not speaking/understanding Citizen [place], there was spoiled food on the stove, and it appeared as though patient did not take his medications on Saturday, as those pills were still in his pill organizer. Son also states that he was asking patient questions and patient was pointing to items around the house in response. Son states that patient has had URI symptoms for the past 2 weeks, but had stated yesterday that those symptoms seemed to be resolving. Patient complains of right lower quadrant abdominal pain. Denies nausea, vomiting, diarrhea, constipation. Son reports that patient had a similar episode a month ago. Son states since arriving at patient's home this morning patient seems to be acting more like himself. MD complaint: confusion Onset (ago): unknown Treatments prior to arrival: none Related Data Home Medications ?Medication ?Instructions ?Recorded ?Confirmed aspirin 81 mg tablet,delayed 1 tab PO DAILY 05/23/20 07/01/24 release atorvastatin 40 mg tablet 1 tab PO DAILY 05/23/20 07/01/24 metformin 500 mg tablet 2 tab PO BID 05/23/20 07/01/24 empagliflozin 10 mg tablet 10 mg PO DAILY 10/29/23 07/01/24 (Jardiance) acetaminophen 500 mg tablet 500 mg PO Q4-6H PRN Pain 07/01/24 07/01/24 amlodipine 10 mg tablet 10 mg PO DAILY 07/01/24 07/01/24 diclofenac sodium 75 mg 75 mg PO BID 07/01/24 07/01/24 tablet,delayed release docusate sodium 100 mg capsule 200 mg PO DAILY 07/01/24 07/01/24 insulin glargine U-300 conc 300 60 unit subcut BEDTIME 07/01/24 07/01/24 unit/mL (1.5 mL) subcutaneous pen (Toujuan SoloStar U-300 Insulin) lactulose 10 gram/15 mL oral 15 ml PO DAILY 07/01/24 07/01/24 solution metoprolol succinate 100 mg 100 mg PO BID 07/01/24 07/01/24 tablet,extended release 24 hr tirzepatide 15 mg/0.5 mL 15 mg subcut TU 07/01/24 07/01/24 subcutaneous pen injector (Arsalan) Previous Rx's ?Medication ?Instructions ?Recorded levetiracetam 250 mg tablet 250 mg PO BID #180 tabs 07/03/24 (Keppra) Allergies Allergy/AdvReac Type Severity Reaction Status Date / Time Penicillins Allergy Unknown Swelling Verified 08/01/24 12:57 Sulfa (Sulfonamide Allergy Unknown Swelling Verified 08/01/24 12:57 Antibiotics) [facility] Past Medical History Medical History Low back pain BPV (benign positional vertigo) ANKIT (obstructive sleep apnea) Depression Obesity Diabetes Surgical History Hx of laparoscopic gastric banding Hx of cholecystectomy Social History Social History Household Members: None Housing: House Do you presently have visiting nurse or other home services: No Alcohol intake: never Patient Tobacco Use Status: Never used Tobacco Smoked in Last 30 Days: No Use of substances other than those prescribed or required for medical reasons: No Advance Directives: No Do you have a plan to hurt others: No Plan service: No Physical Exam ED Vital Signs: Vital Signs - 24 hr 08/01/24 12:54 08/01/24 15:48 Temperature 98.0 F 98.0 F Pulse Rate 97 96 Respiratory Rate 18 18 Blood Pressure 138/89 147/78 H Pulse Oximetry 96 94 Oxygen Delivery Method Room Air Room Air BMI result Body Mass Index 42.7 NIH Stroke Scale Internal: Initial- Upon Arrival Time: 14:34 Level of Consciousness: Alert Level of Consciousness Questions: Answers both questions correctly Level of Consciousness Commands: Performs both tasks correctly Best Gaze: Normal Visual: No visual loss Facial Palsy: Normal Motor Arm (Right): No drift Motor Arm (Left): No drift Motor Leg (Right): No drift Motor Leg (Left): No drift Limb Ataxia: Absent Sensory: Normal Best Language: No aphasia Dysarthia: Normal Extinction and Inattention: No abnormality Score: 0 Course Reevaluation(s) Reevaluation #1: Patient's son to nursing station, stating patient is not able to speak. Patient assessed and right facial droop noted, though patient is able to speak somewhat slowly. CTA head for stroke ordered as well as POC glucose. Time: 15:52 Reevaluation #2: Per Dr. Lees, patient's episodes attributed to seizures at most recent visit, also had brain MRI. He feels CTA head not needed at this time. Will admit. Medications Administered Discontinued Medications Generic Name Dose Route Start Last Admin Trade Name Freq PRN Reason Stop Dose Admin Iohexol 100 ml 08/01/24 15:05 08/01/24 15:05 Iohexol 350 Mg/Ml 100 Ml Infus..Btl IV 08/01/24 15:06 85 ml ONCE ONE Administration Medical Decision Making Medical Decision Making [facility] Narrative: Patient is a 78-year-old primarily Yemeni speaking male who also understands [place] with history of DM, ANKIT, BPPV presenting to the emergency department with son who reports that patient has been confused since some time last night/this am. On exam patient is awake, A+Ox2, VS WNL, afebrile, physical exam findings as above. Given reported symptoms and physical exam findings, initial differential includes but is not limited to CVA/TIA, electrolyte abnormality, UTI, viral illness, pneumonia, drug or alcohol intoxication. Labs unremarkable. X-ray chest notable for no evidence of pneumonia. CT head is without acute abnormality. My interpretation is in agreement with the radiologist's interpretation. Differential Diagnosis Differential Diagnoses: The differential diagnosis associated with the presentation includes As per [facility] Admission/Observation Consideration of admission/observation: Escalation of care including admission/observation considered Consult Healthcare Provider Management of the patient was discussed with: Hospitalist Lab Data [facility] Lab Attestation statement: I reviewed the patient's lab results. As per [facility] 08/01/24 14:01 08/01/24 14:01 Labs: Lab Results 08/01/24 08/01/24 08/01/24 Range/Units 13:23 14:01 15:56 WBC 11.2 H (4.8-10.8) X10*3/uL RBC 6.05 H (4.60-5.80) X10*6/uL Hgb 17.3 (14.0-18.0) g/dl Hct 49.7 (42.0-52.0) % MCV 82.1 (80.0-98.0) fL MCH 28.6 (27.0-33.0) pg MCHC 34.8 (31.0-36.0) g/dl RDW 13.8 (11.0-16.0) % Plt Count 244 (160-400) X10*3/uL MPV 11.0 (9.4-12.4) fL Immature Gran % (Auto) 0.4 (0.0-0.4) % Neut % (Auto) 59.4 (45-73) % Lymph % (Auto) 22.5 (20-40) % [place] % (Auto) 11.1 H (2-11) % Eos % (Auto) 5.3 H (0-4) % Baso % (Auto) 1.3 (0-2) % Lymph # (Auto) 2.5 (1.2-4.9) X10*3/uL [place] # (Auto) 1.2 (0.1-1.2) X10*3/uL Eos # (Auto) 0.6 H (0.0-0.4) X10*3/uL Baso # (Auto) 0.1 (0.0-0.2) X10*3/uL Abs Immat Gran (auto) 0.04 H (0.00-0.03) X10*3/uL Absolute Neuts (auto) 6.7 (2.0-8.3) x10*3/uL Absolute Nucleated RBC 0.000 (0.0-0.012) X10*3/uL Nucleated RBC % (auto) 0.0 (0.0-0.2) /100WBC PT 11.9 (10.9-12.4) SEC INR 1.0 (0.9-1.1) Sodium 138 (135-145) mmol/L Potassium 3.9 (3.3-5.1) mmol/L Chloride 108 (96-108) mmol/L Carbon Dioxide 20 L (22-29) mmol/L Anion Gap 14 (12-20) BUN 7 L (9-16) mg/dL Creatinine 0.87 (0.5-1.4) mg/dL Estim Creat Clear Calc 92.5 Estimated GFR > 60 POC Glucose 105 (60-115) mg/dL Random Glucose 113 (60-115) mg/dL Calcium 9.6 (8.4-10.2) mg/dL Magnesium 1.9 (1.6-2.6) mg/dL Total Bilirubin 1.1 H (0.0-1.0) mg/dL AST 42 H (5-37) U/L ALT 45 H (0-40) U/L Alkaline Phosphatase 97 (39-117) U/L Troponin I High Sens 8.9 D (<3.5-35.0) ng/L Total Protein 7.1 (6.5-8.0) g/dL Albumin 4.1 (3.5-5.0) g/dL Urine Color Yellow Urine Appearance Clear Urine pH 6.0 (5.0-9.0) Ur Specific [place] 1.010 (1.005-1.025) Urine Protein Negative (Neg-Trace) mg/dL Urine Glucose (UA) >=1000 H (Negative) mg/dL Urine Ketones Trace (Negative) mg/dL Urine Blood Negative (Negative) Urine Nitrite Negative (Negative) Ur Leukocyte Esterase Negative (Negative) Urine RBC 0-2 (0-2) /HPF Urine WBC 0-5 (0-5) /HPF Ur Squamous Epith Cells 0-2 (0-2) /HPF Urine Bacteria None Seen (None Seen) Hyaline Casts 0-2 (0-2) /LPF Urine Opiates Screen Not Detected (Not Detect) Ur Buprenorphine Scrn Not Detected (Not Detect) ng/mL Ur Oxycodone Screen Not Detected (Not Detect) ng/mL Urine Methadone Screen Not Detected (Not Detect) ng/mL Urine Fentanyl Screen Not Detected (Not Detect) Ur Barbiturates Screen Not Detected (Not Detect) Ur Phencyclidine Scrn Not Detected (Not Detect) Ur Amphetamines Screen Not Detected (Not Detect) U Benzodiazepines Scrn Not Detected (Not Detect) Urine Cocaine Screen Not Detected (Not Detect) U Marijuana (THC) Screen Not Detected (Not Detect) Ethyl Alcohol < 10 mg/dL Influenza Type A (PCR) NEGATIVE (Negative) Influenza Type B (PCR) NEGATIVE (Negative) RSV RNA Qual (PCR) NEGATIVE (Negative) SARS-CoV-2 RNA (RT-PCR) NEGATIVE (Negative) Independent Interpretation I performed an independent interpretation of an: Plain X-Ray and CT Scan Interpretation: No evidence of pneumonia on chest x-ray. No acute abnormalities on CT head. Radiology Impression Discussion of test interpretation with radiology: I have reviewed the radiologist's reading. Radiologist Impression: Findings: No acute hemorrhage. No extra-axial fluid collection. No hydrocephalus, mass-effect or herniation. Cummings-white differentiation is maintained. White matter is within normal limits for age. No acute orbital pathology. No acute soft tissue abnormality. No fracture. The visualized paranasal sinuses are predominantly clear. The mastoid air cells are clear. Impression: No acute findings. Findings: No cardiomegaly. Normal mediastinal contours. No pneumothorax. No opacity. No pleural effusion. Normal upper abdomen. No acute fracture. Impression: No acute findings. Independent Historian Clinical information obtained from an independent historian. History obtained from or confirmed by: Other (son) External Record Review External record reviewed: Inpatient record, Office record and Outpatient record Discharge Plan Discharge Clinical Impression: Altered mental status Patient Disposition: Admitted As Inpatient Print Language: Citizen [place]
--- NOTE | 2024-08-01 13:45 | PC.NURSE ---
Pt comes from home for increased confusion starting last night. Per pt son, pt has had an increase in confusion, memory loss, and ?stroke like symptoms. Pt has had a hx of this happening before x1 month ago d/t a low blood sugar. Upon arrival pt blood sugar 144, a/ox2- place and situation, equal strength bilaterally, no facial droop, no drift noted, no increased wob/sob, respirations even and unlabored. Pt unable to answer questions/follow commands. Keeps stating Me and my 3 cats are confused. . Per son pt lives alone, ambulatory and independent, drives, and is not normally confused like this. Son endorsing pt has had URI/flu like symptoms x2 weeks. MICHAEL Vela made aware, plan for labs, ekg, scans. Call gonzales within reach, all needs met at this time.
[2024-08-01 14:07] LABS: MANUAL DIFF FLAG NO
[2024-08-01 14:09] LABS: Amphetamine Screen Urine Not Detected (Not Detect); Barbiturates, Urine Not Detected (Not Detect); Benzodiazepines Screen Urine Not Detected (Not Detect); Buprenorphine Scr Not Detected (Not Detect); Cannabinoid Screen Urine Not Detected (Not Detect); Cocaine Screen Urine Not Detected (Not Detect); Fentanyl, urine Not Detected (Not Detect); Methadone Screen, Urine Not Detected (Not Detect); Opiate Screen Urine Not Detected (Not Detect); Oxycodone Screen Urine Not Detected (Not Detect); Phencyclidine Screen Urine Not Detected (Not Detect)
[2024-08-01 14:09] LABS: Basophils Absolute Auto 0.1 X10*3/uL (0.0-0.2); Basophils Percent Auto 1.3 % (0-2); Eosinophils Absolute Auto 0.6 X10*3/uL (0.0-0.4); Eosinophils Percent Auto 5.3 % (0-4); Hematocrit 49.7 % (42.0-52.0); Hemoglobin 17.3 g/dl (14.0-18.0); Imm Gran Abs Auto 0.04 X10*3/uL (0.00-0.03); Imm Gran Pct Auto 0.4 % (0.0-0.4); Lymphocytes Absolute Auto 2.5 X10*3/uL (1.2-4.9); Lymphocytes Percent Auto 22.5 % (20-40); Mean Corpuscular HGB Conc 34.8 g/dl (31.0-36.0); Mean Corpuscular Hemoglobin 28.6 pg (27.0-33.0); Mean Corpuscular Volume 82.1 fL (80.0-98.0); Monocytes Absolute Auto 1.2 X10*3/uL (0.1-1.2); Monocytes Percent Auto 11.1 % (2-11); Neutrophils Absolute Auto 6.7 x10*3/uL (2.0-8.3); Neutrophils Percent Auto 59.4 % (45-73); Platelet Count 244 X10*3/uL (160-400); Red Blood Count 6.05 X10*6/uL (4.60-5.80); Red Cell Distribution Width 13.8 % (11.0-16.0); White Blood Count 11.2 X10*3/uL (4.8-10.8)
[2024-08-01 14:14] LABS: Prothrombin Time 11.9 SEC (10.9-12.4)
[2024-08-01 14:24] LABS: Ethanol < 10 mg/dL
[2024-08-01 14:31] LABS: Troponin-I High Sensitivity 8.9 ng/L (<3.5-35.0)
[2024-08-01 14:34] LABS: Alanine Aminotransferase 45 U/L (0-40); Albumin Level 4.1 g/dL (3.5-5.0); Anion Gap 14 (12-20); Aspartate Amino Transferase 42 U/L (5-37); Bilirubin Total 1.1 mg/dL (0.0-1.0); Blood Urea Nitrogen 7 mg/dL (9-16); Calcium 9.6 mg/dL (8.4-10.2); Carbon Dioxide 20 mmol/L (22-29); Chloride 108 mmol/L (96-108); Creatinine Clr Calc Pharmacy 92.5; Estimated Glomerular Filt Rate > 60; Glucose Random 113 mg/dL (60-115); Magnesium 1.9 mg/dL (1.6-2.6); Potassium 3.9 mmol/L (3.3-5.1); Sodium 138 mmol/L (135-145); Total Protein 7.1 g/dL (6.5-8.0)
[2024-08-01 14:41] LABS: Alkaline Phosphatase 97 U/L (39-117)
[2024-08-01 14:56] LABS: Influenza A PCR NEGATIVE (Negative); Influenza B PCR NEGATIVE (Negative); Resp Syncy Virus RNA Qual PCR NEGATIVE (Negative); SARS COV2 PCR INHOUSE NEGATIVE (Negative)
[2024-08-01] MEDS: iohexoL 350 MG/ML 100 ML INFUS..BTL IV (15:05)
[2024-08-01 15:48] VITALS: BP 147/78; PULSE 96; RESP 18; TEMP 36.7; O2SAT 94
[2024-08-01 15:59] LABS: Glucose, Whole Blood 105 mg/dL (60-115)
--- NOTE | 2024-08-01 16:43 | PM.IMHP ---
History of Present Illness Date of Service: 08/01/24 Chief Complaint: Confusion, speech problem A 78 years old male with PMH of DMII, HLD, BPH, OBesity, ANKIT not using CPAP, BPPV among others who presents to the hospital with confusion and speech problem. The patient was evaluated for similar presentaiton last month and was found to have a likely underlying seizure problem. presenting today with similar complaints as his son report finding his father home with altered mentation and confusion with difficulties finding words. He was recently sick with cold like symptoms. In ED , Labs unremarkable, UA neg, viral serology negative, CXR neg. CT head negative. admitted for further evaluation and management. Review of Systems Review of Systems: Yes Unobtainable due to mental condition [facility] Medical History Low back pain BPV (benign positional vertigo) ANKIT (obstructive sleep apnea) Depression Obesity Diabetes Surgical History Hx of laparoscopic gastric banding Hx of cholecystectomy Social History Household Members: None Housing: House Do you presently have visiting nurse or other home services: No Alcohol intake: never Patient Tobacco Use Status: Never used Tobacco Smoked in Last 30 Days: No Use of substances other than those prescribed or required for medical reasons: No Advance Directives: No Do you have a plan to hurt others: No Plan service: No Meds Allergies Allergy/AdvReac Type Severity Reaction Status Date / Time Penicillins Allergy Unknown Swelling Verified 08/01/24 12:57 Sulfa (Sulfonamide Allergy Unknown Swelling Verified 08/01/24 12:57 Antibiotics) Active Medications: Current Medications Levetiracetam (Keppra) 1,000 mg in 100 mls @ 400 mls/hr IV ONCE ONE Stop: 08/01/24 16:56 Home Medications ?Medication ?Instructions ?Recorded ?Confirmed ?Last Taken ?Type aspirin 81 mg tablet,delayed 1 tab PO DAILY 05/23/20 07/01/24 1 Day Ago History release ~06/30/24 atorvastatin 40 mg tablet 1 tab PO DAILY 05/23/20 07/01/24 1 Day Ago History ~06/30/24 metformin 500 mg tablet 2 tab PO BID 05/23/20 07/01/24 1 Day Ago History ~06/30/24 empagliflozin 10 mg tablet 10 mg PO DAILY 10/29/23 07/01/24 1 Day Ago History (Jardiance) ~06/30/24 acetaminophen 500 mg tablet 500 mg PO Q4-6H PRN Pain 07/01/24 07/01/24 Unknown History amlodipine 10 mg tablet 10 mg PO DAILY 07/01/24 07/01/24 1 Day Ago History ~06/30/24 diclofenac sodium 75 mg 75 mg PO BID 07/01/24 07/01/24 1 Day Ago History tablet,delayed release ~06/30/24 docusate sodium 100 mg capsule 100 mg PO BID 07/01/24 07/01/24 1 Day Ago History ~06/30/24 insulin glargine U-300 conc 300 60 unit subcut BEDTIME 07/01/24 07/01/24 06/30/24 History unit/mL (1.5 mL) subcutaneous pen (Aleyda SolHellenar U-300 Insulin) lactulose 10 gram/15 mL oral 15 ml PO DAILY 07/01/24 07/01/24 1 Day Ago History solution ~06/30/24 metoprolol succinate 100 mg 100 mg PO BID 07/01/24 07/01/24 06/30/24 History tablet,extended release 24 hr tirzepatide 15 mg/0.5 mL 15 mg subcut TU@0900 07/01/24 07/01/24 06/23/24 History subcutaneous pen injector (Arsalan) clotrimazole-betamethasone 1 1 appl topical DAILY 08/01/24 Unknown History %-0.05 % topical cream sennosides 8.6 mg tablet (senna) 17.2 mg PO DAILY 08/01/24 Unknown History tirzepatide 2.5 mg/0.5 mL 2.5 mg subcut TU@0900 08/01/24 Unknown History subcutaneous pen injector (Rocuncatiaro) Physical Exam Vital Signs and Narrative: Vital Signs: Last Vital Signs Temp 98.0 F 08/01/24 15:48 Pulse 96 08/01/24 15:48 Resp 18 08/01/24 15:48 BP 147/78 H 08/01/24 15:48 Pulse Ox 94 08/01/24 15:48 O2 Del Method Room Air 08/01/24 15:48 BMI result Body Mass Index 42.7 Const: Other: Constitutional : Awake, interactive, not in distress Neck : Normal inspection, Supple Cardiovascular : RRR, no JVP, no lower extremity edema Respiratory : good bilateral air entry, no crackles, wheezes or rhonchi Gastrointestinal: soft, lax, Normal bowel sounds, Non tender Skin : Warm, Dry Neurological : Alert & confused, follow some orders with 1 step only, No focal motor deficit, speech clear with 1 or 2 words only, fleuncy affected, can not finish a sentence Results Labs 08/01/24 14:01 08/01/24 14:01 Labs: Laboratory Results - last 24 hr 08/01/24 08/01/24 08/01/24 13:23 14:01 15:56 MCV 82.1 MCH 28.6 MCHC 34.8 RDW 13.8 Plt Count 244 MPV 11.0 Immature Gran % (Auto) 0.4 Neut % (Auto) 59.4 Lymph % (Auto) 22.5 [place] % (Auto) 11.1 H Eos % (Auto) 5.3 H Baso % (Auto) 1.3 Lymph # (Auto) 2.5 [place] # (Auto) 1.2 Eos # (Auto) 0.6 H Baso # (Auto) 0.1 Abs Immat Gran (auto) 0.04 H Absolute Neuts (auto) 6.7 Absolute Nucleated RBC 0.000 Nucleated RBC % (auto) 0.0 PT 11.9 INR 1.0 Anion Gap 14 Estim Creat Clear Calc 92.5 Estimated GFR > 60 POC Glucose 105 Random Glucose 113 Calcium 9.6 Magnesium 1.9 Total Bilirubin 1.1 H AST 42 H ALT 45 H Alkaline Phosphatase 97 Troponin I High Sens 8.9 D Total Protein 7.1 Albumin 4.1 Urine Color Yellow Urine Appearance Clear Urine pH 6.0 Ur Specific [place] 1.010 Urine Protein Negative Urine Glucose (UA) >=1000 H Urine Ketones Trace Urine Blood Negative Urine Nitrite Negative Ur Leukocyte Esterase Negative Urine RBC 0-2 Urine WBC 0-5 Ur Squamous Epith Cells 0-2 Urine Bacteria None Seen Hyaline Casts 0-2 Urine Opiates Screen Not Detected Ur Buprenorphine Scrn Not Detected Ur Oxycodone Screen Not Detected Urine Methadone Screen Not Detected Urine Fentanyl Screen Not Detected Ur Barbiturates Screen Not Detected Ur Phencyclidine Scrn Not Detected Ur Amphetamines Screen Not Detected U Benzodiazepines Scrn Not Detected Urine Cocaine Screen Not Detected U Marijuana (THC) Screen Not Detected Ethyl Alcohol < 10 Influenza Type A (PCR) NEGATIVE Influenza Type B (PCR) NEGATIVE RSV RNA Qual (PCR) NEGATIVE SARS-CoV-2 RNA (RT-PCR) NEGATIVE Assessment and Plan (1) Altered mental status: Status: Acute (2) Speech problem: Status: Acute (3) Seizure disorder: Status: Acute (4) Prolonged QT interval: Status: Acute Plan A 78 years old male with PMH of DMII, HLD, BPH, OBesity, ANKIT not using CPAP, BPPV among others who presents to the hospital with confusion and speech problem. Confusion, speech problem DDx: Seizure disorder, encephalitis CT negative for acute insult Load with Keppra Increase Keppra to 500 mg bid EEG Neurology eval bedside swallow screening Ativan PRN for seizures Prolonged QTc Keep on Tele repeat EKG as QTc of 650 Give K to keep it >4, Mg to keep >2 Hx TIA ASA, Statin DMII Hold PO meds SSI diabetic diet HTN Metoprolol, Amlodipine DVT PPx Lovenox The patient will be admitted for further evaluation and monitoring Quality Stroke Does the patient have a stroke diagnosis?: No VTE Prior VTE?: No VTE Risk Level:: Medical - moderate - high VTE Device Contraindication: Treatment Not Indicated VTE Drug Contraindication: N/A - Med Ordered
[2024-08-01] MEDS: levETIRAcetam in NaCl (iso-os) 1,000 MG/100 ML PIGGYBACK 400 MG IV (17:04)
[2024-08-01] MEDS: Lactated Ringers 500 ML 75 ML IV (17:05)
[2024-08-01] MEDS: Enoxaparin Sodium 40 MG/0.4 ML SYRINGE SUBCUT (17:09)
[2024-08-01] MEDS: Potassium Chloride/H20 10 MEQ/100 ML PIGGYBACK 100 MEQ IV ×2 (17:09→19:31)
[2024-08-01] MEDS: Magnesium Sulfate/H2O 2 GM/50 ML PIGGYBACK IV (17:14)
[2024-08-01 17:25] LABS: Estimated Average Glucose 137 mg/dL; Hemoglobin A1C 202.5358 umol/L; Hemoglobin A1c % 6.4 % (<6.0); Total Hemoglobin (HGBA1C) 4324.1102 umol/L
[2024-08-01 18:08] VITALS: BP 134/88; PULSE 79; RESP 13; TEMP 36.5; O2SAT 94
--- NOTE | 2024-08-01 18:28 | PHA.MEDREC ---
Addendum entered by Juanis Padron RPh 08/01/24 18:55: [facility] reviewed Original Note: Pharmacy Consult ? Medication Reconciliation Pharmacy has completed the medication reconciliation. Spoke to pt's son to confirm meds, who could not report much outside of humalog, toujeo, and mounjaro. Pt's son states patient is on humalog sliding scale at home, mounjaro 15 mg weekly, and toujeo (pharmacy claim hx shows 60 mg bedtime). Utilized claim history from [facility] for other medications.
[2024-08-01 20:50] VITALS: BP 143/82; PULSE 83; RESP 20; TEMP 36.8; O2SAT 94
[2024-08-01 21:37] LABS: Glucose, Whole Blood 147 mg/dL (60-115)
[2024-08-01] MEDS: Insulin Glargine,Hum.rec.anlog 100 UNIT/ML 10 ML VIAL 15 UNIT SUBCUT (22:00)
[2024-08-01] MEDS: levETIRAcetam in NaCl (iso-os) 500 MG/100 ML PIGGYBACK 400 MG IV (22:00)
[2024-08-01] MEDS: Metoprolol Succinate ER 100 MG TAB.ER.24H PO (22:01)
--- NOTE | 2024-08-01 22:11 | PC.NURSE ---
Assumed care for this pt at 1900. Pt is alert and oriented to self only. Pt has pulled out IVs twice. continues to get out of bed looking for his son and baby . Spoke with son, pts mentation has been declining. no hx of dementia.
[2024-08-02] VITALS: BP 146/68; PULSE 65; RESP 17; TEMP 36.5; O2SAT 94
[2024-08-02] MEDS: Diclofenac Sodium Delayed Rel 75 MG TABLET.DR PO ×2 (00:15→20:39)
[2024-08-02] MEDS: 0.9 % Sodium Chloride Flush 3 ML SYRINGE IVFLUSH ×4 (00:27→20:39)
[2024-08-02 04:00] VITALS: BP 127/64; PULSE 69; RESP 17; TEMP 36.6; O2SAT 95
--- NOTE | 2024-08-02 04:37 | PC.NURSE ---
Pt brought in from home for increased confusion that began last night. Per pts son, pt has been experiencing a decline in mentation with increased confusion, memory loss, and ?stroke like symptoms. Pt had a similar episode a month ago that was due to low blood sugar. Upon arrival pts blood sugar 144, a/ox2- place and situation, equal strength bilaterally, no facial droop, no drift noted, no increased wob/sob, respirations even and unlabored. Pt unable to answer questions/follow commands. Keeps stating Me and my 3 cats are confused. . Per son pt lives alone, ambulatory and independent, drives, and is not normally confused like this. Son endorsing pt has had URI/flu like symptoms x2 weeks. I assumed care for this pt at 1900, pt is alert and oriented to self only. Pt was able to take meds whole and drink and eat with no issues. Pt passed swallow eval. Pt has pulled out IVs x4, has new 20G IV in left hand. continues to get out of bed looking for his son and baby . Pt is easily redirectable. Spoke with son, pts mentation has been declining, no hx of dementia.
[2024-08-02 06:19] LABS: MANUAL DIFF FLAG NO
[2024-08-02 06:23] LABS: Basophils Absolute Auto 0.1 X10*3/uL (0.0-0.2); Eosinophils Absolute Auto 1.3 X10*3/uL (0.0-0.4); Eosinophils Percent Auto 13.6 % (0-4); Hematocrit 48.1 % (42.0-52.0); Hemoglobin 16.1 g/dl (14.0-18.0); Imm Gran Abs Auto 0.04 X10*3/uL (0.00-0.03); Imm Gran Pct Auto 0.4 % (0.0-0.4); Lymphocytes Absolute Auto 2.2 X10*3/uL (1.2-4.9); Lymphocytes Percent Auto 22.9 % (20-40); Mean Corpuscular HGB Conc 33.5 g/dl (31.0-36.0); Mean Corpuscular Hemoglobin 28.5 pg (27.0-33.0); Mean Corpuscular Volume 85.1 fL (80.0-98.0); Monocytes Absolute Auto 1.2 X10*3/uL (0.1-1.2); Monocytes Percent Auto 12.1 % (2-11); Neutrophils Absolute Auto 4.8 x10*3/uL (2.0-8.3); Platelet Count 221 X10*3/uL (160-400); Red Blood Count 5.65 X10*6/uL (4.60-5.80); Red Cell Distribution Width 14.1 % (11.0-16.0); White Blood Count 9.6 X10*3/uL (4.8-10.8)
[2024-08-02 06:38] LABS: Alanine Aminotransferase 36 U/L (0-40); Albumin Level 3.8 g/dL (3.5-5.0); Alkaline Phosphatase 82 U/L (39-117); Anion Gap 10 (12-20); Aspartate Amino Transferase 34 U/L (5-37); Bilirubin Total 1.1 mg/dL (0.0-1.0); Blood Urea Nitrogen 10 mg/dL (9-16); Calcium 9.3 mg/dL (8.4-10.2); Carbon Dioxide 24 mmol/L (22-29); Chloride 109 mmol/L (96-108); Creatinine Clr Calc Pharmacy 71.2; Estimated Glomerular Filt Rate > 60; Glucose Random 123 mg/dL (60-115); Sodium 139 mmol/L (135-145); Total Protein 6.2 g/dL (6.5-8.0)
[2024-08-02 07:06] VITALS: BMI 40.3
[2024-08-02] MEDS: Metoprolol Succinate ER 100 MG TAB.ER.24H PO ×2 (07:34→20:38)
[2024-08-02] MEDS: Atorvastatin Calcium 40 MG TABLET PO (07:34)
[2024-08-02] MEDS: Docusate Sodium 100 MG CAPSULE 200 MG PO (07:34)
[2024-08-02] MEDS: amLODIPine Besylate 10 MG TABLET PO (07:34)
[2024-08-02] MEDS: levETIRAcetam in NaCl (iso-os) 500 MG/100 ML PIGGYBACK 400 MG IV (07:35)
[2024-08-02] MEDS: Aspirin Enteric Coated 81 MG TABLET.DR PO (07:35)
[2024-08-02 07:40] LABS: Glucose, Whole Blood 135 mg/dL (60-115)
[2024-08-02 07:42] VITALS: BP 155/78; PULSE 61; RESP 18; TEMP 37.2; O2SAT 94
[2024-08-02 08:38] LABS: Adenovirus PCR Not Detected (Not Detect.); Bordetella parapertussis PCR Not Detected (Not Detect.); Bordetella pertussis PCR Not Detected (Not Detect.); Chlamydia pneumoniae PCR Not Detected (Not Detect.); Coronavirus 229E PCR Not Detected (Not Detect.); Coronavirus HKU1 PCR Not Detected (Not Detect.); Coronavirus NL63 PCR Not Detected (Not Detect.); Coronavirus OC43 PCR Not Detected (Not Detect.); Human metapneumovirus PCR Not Detected (Not Detect.); Influenza A PCR Not Detected (Not Detect.); Influenza B PCR Not Detected (Not Detect.); Mycoplasma pneumoniae PCR Not Detected (Not Detect.); Parainfluenza 1 PCR Not Detected (Not Detect.); Parainfluenza 2 PCR Not Detected (Not Detect.); Parainfluenza 3 PCR Not Detected (Not Detect.); Parainfluenza 4 PCR Not Detected (Not Detect.); RSV PCR Not Detected (Not Detect.); Rhino/Enterovirus PCR Not Detected (Not Detect.)
[2024-08-02 08:41] LABS: SARS-CoV-2 PCR Not Detected (Not Detect.)
--- NOTE | 2024-08-02 10:58 | PM.NEUROCN ---
History of Present Illness Data of Consult Service Date: 08/02/24 Primary Care Provider: Ashtyn Mcmahon MD [facility] Reason for consult: Encephalopath 78 years old man who was recently diagnosed with complex partial seizure disorder and was put on levetiracetam 250 mg twice a day. He came to hospital with similar complaints of confusion and difficulty speaking as he came last time and was diagnosed with seizure disorder. When I asked him if he was taking a seizure medicine regularly, he was not sure and stated that he was taking it once today. Review of Systems Review of Systems: No recent cold or flu-like illness PMFSH Past Medical History Medical History Low back pain BPV (benign positional vertigo) ANKIT (obstructive sleep apnea) Depression Obesity Diabetes Surgical History Surgical History Hx of laparoscopic gastric banding Hx of cholecystectomy Social History Social History Household Members: None Housing: Apartment Do you presently have visiting nurse or other home services: No Alcohol intake: never Patient Tobacco Use Status: Never used Tobacco service: No Meds Allergies Allergy/AdvReac Type Severity Reaction Status Date / Time Penicillins Allergy Unknown Swelling Verified 08/01/24 12:57 Sulfa (Sulfonamide Allergy Unknown Swelling Verified 08/01/24 12:57 Antibiotics) Active Medications: Current Medications Acetaminophen (Acetaminophen 325 Mg Tablet) 650 mg PO Q6H PRN PRN Reason: Pain, Mild 1-3,fever,headache Amlodipine Besylate (Amlodipine Besylate 10 Mg Tablet) 10 mg PO DAILY [facility]; Protocol Last Admin: 08/02/24 07:34 Dose: 10 mg Aspirin (Aspirin Enteric Coated 81 Mg Tablet.) 81 mg PO DAILY [facility] Last Admin: 08/02/24 07:35 Dose: 81 mg Atorvastatin Calcium (Atorvastatin Calcium 40 Mg Tablet) 40 mg PO DAILY [facility] Last Admin: 08/02/24 07:34 Dose: 40 mg Diclofenac Sodium (Diclofenac Sodium Delayed Rel 75 Mg Tablet.) 75 mg PO BID [facility] Last Admin: 08/02/24 07:34 Dose: Not Given Docusate Sodium (Docusate Sodium 100 Mg Capsule) 200 mg PO DAILY [facility] Last Admin: 08/02/24 07:34 Dose: 200 mg Enoxaparin Sodium (Enoxaparin Sodium 40 Mg/0.4 Ml Syringe) 40 mg SUBCUT Q24H [facility] Last Admin: 08/01/24 17:09 Dose: 40 mg Levetiracetam (Keppra) 500 mg in 100 mls @ 400 mls/hr IV Q12H [facility] Last Infusion: 08/02/24 08:03 Dose: Infused Insulin Glargine (Insulin Glargine,Hum.Rec.Anlog 100 Unit/Ml 10 Ml Vial) 15 unit SUBCUT BEDTIME [facility] Last Admin: 08/01/24 22:00 Dose: 15 unit Insulin Human Lispro (Insulin Lispro 100 Unit/Ml 3 Ml Vial) 0 unit SUBCUT QIDACHS [facility]; Protocol Last Admin: 08/02/24 07:38 Dose: Not Given Metoprolol Succinate (Metoprolol Succinate Er 100 Mg Tab.Er.24h) 100 mg PO BID [facility]; Protocol Last Admin: 08/02/24 07:34 Dose: 100 mg Ondansetron HCl (Ondansetron Hcl 4 Mg/2 Ml Vial) 4 mg IVPUSH Q8H PRN PRN Reason: Nausea and Vomiting Senna (Sennosides 8.6 Mg Tablet) 17.2 mg PO DAILY PRN PRN Reason: Constipation Sodium Chloride (0.9 % Sodium Chloride Flush 3 Ml Syringe) 3 ml IVFLUSH QSHIFT [facility] Last Admin: 08/02/24 07:35 Dose: 3 ml Home Medications ?Medication ?Instructions ?Recorded ?Confirmed ?Last Taken ?Type aspirin 81 mg tablet,delayed 1 tab PO DAILY 05/23/20 08/01/24 08/01/24 09:00 History release atorvastatin 40 mg tablet 1 tab PO DAILY 05/23/20 08/01/24 08/01/24 09:00 History metformin 500 mg tablet 2 tab PO BID 05/23/20 08/01/24 08/01/24 09:00 History empagliflozin 10 mg tablet 10 mg PO DAILY 10/29/23 08/01/24 08/01/24 09:00 History (Jardiance) acetaminophen 500 mg tablet 500 mg PO Q6H PRN Pain 07/01/24 08/01/24 Unknown History amlodipine 10 mg tablet 10 mg PO DAILY 1208/01/24 08/01/24 09:00 History diclofenac sodium 75 mg 75 mg PO BID 07/01/24 08/01/24 08/01/24 09:00 History tablet,delayed release docusate sodium 100 mg capsule 200 mg PO DAILY 07/01/24 08/01/24 08/01/24 09:00 History insulin glargine U-300 conc 300 60 unit subcut BEDTIME 07/01/24 08/01/24 06/30/24 History unit/mL (1.5 mL) subcutaneous pen (Toujeo SoloStar U-300 Insulin) lactulose 10 gram/15 mL oral 15 ml PO DAILY 07/01/24 08/01/24 08/01/24 09:00 History solution metoprolol succinate 100 mg 100 mg PO BID 07/01/24 08/01/24 08/01/24 09:00 History tablet,extended release 24 hr tirzepatide 15 mg/0.5 mL 15 mg subcut TU@0900 07/01/24 08/01/24 06/23/24 History subcutaneous pen injector (Arsalan) clotrimazole-betamethasone 1 1 appl topical BID PRN fungal 08/01/24 08/01/24 08/01/24 09:00 History %-0.05 % topical cream infection insulin lispro 100 unit/mL 1 sliding scale dose subcut TIDAC 08/01/24 08/01/24 08/01/24 09:00 History subcutaneous solution (Humalog U-100 Insulin) sennosides 8.6 mg tablet (senna) 17.2 mg PO DAILY PRN Constipation 08/01/24 08/01/24 Unknown History Physical Exam Vital Signs: Vital Signs: Last Vital Signs Temp 98.9 F 08/02/24 07:42 Pulse 61 08/02/24 07:42 Resp 18 08/02/24 07:42 BP 155/78 H 08/02/24 07:42 Pulse Ox 94 08/02/24 07:42 O2 Del Method Room Air 08/02/24 07:42 BMI result Body Mass Index 40.3 Neuro: Other: he is alert and awake with normal spontaneity of speech fluency comprehension and vague affect. Face is symmetrical. Visual colon are full. There was no focal weakness. Results Labs 08/02/24 06:07 08/02/24 06:07 Labs: Short CBC 08/01/24 08/02/24 Range/Units 14:01 06:07 WBC 11.2 H 9.6 (4.8-10.8) X10*3/uL Hgb 17.3 16.1 (14.0-18.0) g/dl Hct 49.7 48.1 (42.0-52.0) % Plt Count 244 221 (160-400) X10*3/uL BMP 08/01/24 08/02/24 14:01 06:07 Sodium 138 139 Potassium 3.9 4.0 Chloride 108 109 H Carbon Dioxide 20 L 24 BUN 7 L 10 Creatinine 0.87 1.13 Calcium 9.6 9.3 Liver Function 08/01/24 08/02/24 Range/Units 14:01 06:07 Total Bilirubin 1.1 H 1.1 H (0.0-1.0) mg/dL AST 42 H 34 (5-37) U/L ALT 45 H 36 (0-40) U/L Alkaline Phosphatase 97 82 (39-117) U/L Albumin 4.1 3.8 (3.5-5.0) g/dL Urine 08/01/24 Range/Units 13:23 Urine Color Yellow Urine Appearance Clear Urine pH 6.0 (5.0-9.0) Ur Specific [place] 1.010 (1.005-1.025) Urine Protein Negative (Neg-Trace) mg/dL Urine Glucose (UA) >=1000 H (Negative) mg/dL Head CT revealed moderately severe diffuse atrophy. Assessment and Plan (1) Seizure disorder: Status: Acute 78 years old man with complex partial seizure disorder probably not taking full dose of levetiracetam. My recommendation is to increase his dose to 750 mg twice a day. He was advised to take his medicines on regular basis. Procedures Date of Service Date of Service: 08/02/24
[2024-08-02 11:26] LABS: Glucose, Whole Blood 198 mg/dL (60-115)
[2024-08-02 11:36] VITALS: BP 150/70; PULSE 60; RESP 18; TEMP 37; O2SAT 96
[2024-08-02] MEDS: Insulin Lispro 100 UNIT/ML 3 ML VIAL SUBCUT (11:41)
--- NOTE | 2024-08-02 12:35 | P.PNIM_ITS ---
Subjective Subjective Date of Service: 08/02/24 Interval History: Seen and evaluated this morning Feels better, talkative reports overall weakness no other events Review of Systems Review of Systems: Yes all other systems are reviewed and are negative Physical Exam 2 Vital Signs: Vital Signs: Last Vital Signs Temp 98.6 F 08/02/24 11:36 Pulse 60 08/02/24 11:36 Resp 18 08/02/24 11:36 BP 150/70 H 08/02/24 11:36 Pulse Ox 96 08/02/24 11:36 O2 Del Method Room Air 08/02/24 11:36 BMI result Body Mass Index 40.3 Const: Other: Constitutional : Awake, interactive, not in distress Neck : Normal inspection, Supple Cardiovascular : RRR, no JVP, no lower extremity edema Respiratory : good bilateral air entry, no crackles, wheezes or rhonchi Gastrointestinal: soft, lax, Normal bowel sounds, Non tender Skin : Warm, Dry Neurological : Alert & confused, follow commands, CN within normal, no focal weakness. Objective Data Active Medications Acetaminophen (Acetaminophen 325 Mg Tablet) 650 mg PO Q6H PRN PRN Reason: Pain, Mild 1-3,fever,headache Amlodipine Besylate (Amlodipine Besylate 10 Mg Tablet) 10 mg PO DAILY [facility]; Protocol Last Admin: 08/02/24 07:34 Dose: 10 mg Documented By: MARGOT Aspirin (Aspirin Enteric Coated 81 Mg Tablet.) 81 mg PO DAILY [facility] Last Admin: 08/02/24 07:35 Dose: 81 mg Documented By: MARGOT Atorvastatin Calcium (Atorvastatin Calcium 40 Mg Tablet) 40 mg PO DAILY [facility] Last Admin: 08/02/24 07:34 Dose: 40 mg Documented By: MARGOT Diclofenac Sodium (Diclofenac Sodium Delayed Rel 75 Mg Tablet.) 75 mg PO BID [facility] Last Admin: 08/02/24 07:34 Dose: Not Given Documented By: MARGOT Non-Admin Reason: Med Not Available Docusate Sodium (Docusate Sodium 100 Mg Capsule) 200 mg PO DAILY [facility] Last Admin: 08/02/24 07:34 Dose: 200 mg Documented By: MARGOT Enoxaparin Sodium (Enoxaparin Sodium 40 Mg/0.4 Ml Syringe) 40 mg SUBCUT Q24H [facility] Last Admin: 08/01/24 17:09 Dose: 40 mg Documented By: NITHYA Levetiracetam (Keppra) 500 mg in 100 mls @ 400 mls/hr IV Q12H [facility] Last Infusion: 08/02/24 08:03 Dose: Infused Documented By: MARGOT Insulin Glargine (Insulin Glargine,Hum.Rec.Anlog 100 Unit/Ml 10 Ml Vial) 15 unit SUBCUT BEDTIME [facility] Last Admin: 08/01/24 22:00 Dose: 15 unit Documented By: WILSON Insulin Human Lispro (Insulin Lispro 100 Unit/Ml 3 Ml Vial) 0 unit SUBCUT QIDACHS [facility]; Protocol Last Admin: 08/02/24 11:41 Dose: 2 unit Documented By: MARGOT Metoprolol Succinate (Metoprolol Succinate Er 100 Mg Tab.Er.24h) 100 mg PO BID [facility]; Protocol Last Admin: 08/02/24 07:34 Dose: 100 mg Documented By: MARGOT Ondansetron HCl (Ondansetron Hcl 4 Mg/2 Ml Vial) 4 mg IVPUSH Q8H PRN PRN Reason: Nausea and Vomiting Senna (Sennosides 8.6 Mg Tablet) 17.2 mg PO DAILY PRN PRN Reason: Constipation Sodium Chloride (0.9 % Sodium Chloride Flush 3 Ml Syringe) 3 ml IVFLUSH QSHIFT [facility] Last Admin: 08/02/24 07:35 Dose: 3 ml Documented By: MARGOT Labs 08/02/24 06:07 08/02/24 06:07 Labs: Laboratory Results - last 24 hr 08/01/24 08/01/24 08/01/24 13:23 14:01 15:56 MCV 82.1 MCH 28.6 MCHC 34.8 RDW 13.8 Plt Count 244 MPV 11.0 Immature Gran % (Auto) 0.4 Neut % (Auto) 59.4 Lymph % (Auto) 22.5 Stafford % (Auto) 11.1 H Eos % (Auto) 5.3 H Baso % (Auto) 1.3 Lymph # (Auto) 2.5 Stafford # (Auto) 1.2 Eos # (Auto) 0.6 H Baso # (Auto) 0.1 Abs Immat Gran (auto) 0.04 H Absolute Neuts (auto) 6.7 Absolute Nucleated RBC 0.000 Nucleated RBC % (auto) 0.0 PT 11.9 INR 1.0 Anion Gap 14 Estim Creat Clear Calc 92.5 Estimated GFR > 60 POC Glucose 105 Random Glucose 113 Estimat Average Glucose 137 Hemoglobin A1c % 6.4 H Calcium 9.6 Magnesium 1.9 Total Bilirubin 1.1 H AST 42 H ALT 45 H Alkaline Phosphatase 97 Troponin I High Sens 8.9 D Total Protein 7.1 Albumin 4.1 Urine Color Yellow Urine Appearance Clear Urine pH 6.0 Ur Specific [place] 1.010 Urine Protein Negative Urine Glucose (UA) >=1000 H Urine Ketones Trace Urine Blood Negative Urine Nitrite Negative Ur Leukocyte Esterase Negative Urine RBC 0-2 Urine WBC 0-5 Ur Squamous Epith Cells 0-2 Urine Bacteria None Seen Hyaline Casts 0-2 Urine Opiates Screen Not Detected Ur Buprenorphine Scrn Not Detected Ur Oxycodone Screen Not Detected Urine Methadone Screen Not Detected Urine Fentanyl Screen Not Detected Ur Barbiturates Screen Not Detected Ur Phencyclidine Scrn Not Detected Ur Amphetamines Screen Not Detected U Benzodiazepines Scrn Not Detected Urine Cocaine Screen Not Detected U Marijuana (THC) Screen Not Detected Ethyl Alcohol < 10 Respiratory Panel Carrion Adenovirus (Rapid PCR) B.pert (TEM-PCR) B.parapertussis DNA PCR C. pneumoniae DNA (PCR) Coronavirus OC43 (PCR) Coronavirus HKU1 (PCR) Coronavirus 229E (PCR) Coronavirus NL63 (PCR) Human Metapneumovir PCR Influenza A (RT-PCR) Influenza Type A (PCR) NEGATIVE Influenza B (RT-PCR) Influenza Type B (PCR) NEGATIVE M. pneumoniae (PCR) Parainfluenza 1 (PCR) Parainfluenza 2 (PCR) Parainfluenza 3 (PCR) Parainfluenza 4 (PCR) RSV (PCR) RSV RNA Qual (PCR) NEGATIVE Entero/Rhino (PCR) SARS-CoV-2 RNA (RT-PCR) NEGATIVE 08/01/24 08/01/24 08/02/24 16:51 21:32 06:07 MCV 85.1 MCH 28.5 MCHC 33.5 RDW 14.1 Plt Count 221 MPV 11.0 Immature Gran % (Auto) 0.4 Neut % (Auto) 50.0 Lymph % (Auto) 22.9 Stafford % (Auto) 12.1 H Eos % (Auto) 13.6 H Baso % (Auto) 1.0 Lymph # (Auto) 2.2 Stafford # (Auto) 1.2 Eos # (Auto) 1.3 H Baso # (Auto) 0.1 Abs Immat Gran (auto) 0.04 H Absolute Neuts (auto) 4.8 Absolute Nucleated RBC 0.000 Nucleated RBC % (auto) 0.0 PT INR Anion Gap 10 L Estim Creat Clear Calc 71.2 Estimated GFR > 60 POC Glucose 147 H Random Glucose 123 H Estimat Average Glucose Hemoglobin A1c % Calcium 9.3 Magnesium Total Bilirubin 1.1 H AST 34 ALT 36 Alkaline Phosphatase 82 Troponin I High Sens Total Protein 6.2 L Albumin 3.8 Urine Color Urine Appearance Urine pH Ur Specific [place] Urine Protein Urine Glucose (UA) Urine Ketones Urine Blood Urine Nitrite Ur Leukocyte Esterase Urine RBC Urine WBC Ur Squamous Epith Cells Urine Bacteria Hyaline Casts Urine Opiates Screen Ur Buprenorphine Scrn Ur Oxycodone Screen Urine Methadone Screen Urine Fentanyl Screen Ur Barbiturates Screen Ur Phencyclidine Scrn Ur Amphetamines Screen U Benzodiazepines Scrn Urine Cocaine Screen U Marijuana (THC) Screen Ethyl Alcohol Respiratory Panel Carrion See Note Adenovirus (Rapid PCR) Not Detected B.pert (TEM-PCR) Not Detected B.parapertussis DNA PCR Not Detected C. pneumoniae DNA (PCR) Not Detected Coronavirus OC43 (PCR) Not Detected Coronavirus HKU1 (PCR) Not Detected Coronavirus 229E (PCR) Not Detected Coronavirus NL63 (PCR) Not Detected Human Metapneumovir PCR Not Detected Influenza A (RT-PCR) Not Detected Influenza Type A (PCR) Influenza B (RT-PCR) Not Detected Influenza Type B (PCR) M. pneumoniae (PCR) Not Detected Parainfluenza 1 (PCR) Not Detected Parainfluenza 2 (PCR) Not Detected Parainfluenza 3 (PCR) Not Detected Parainfluenza 4 (PCR) Not Detected RSV (PCR) Not Detected RSV RNA Qual (PCR) Entero/Rhino (PCR) Not Detected SARS-CoV-2 RNA (RT-PCR) Not Detected 08/02/24 08/02/24 07:37 11:23 MCV MCH MCHC RDW Plt Count MPV Immature Gran % (Auto) Neut % (Auto) Lymph % (Auto) [place] % (Auto) Eos % (Auto) Baso % (Auto) Lymph # (Auto) [place] # (Auto) Eos # (Auto) Baso # (Auto) Abs Immat Gran (auto) Absolute Neuts (auto) Absolute Nucleated RBC Nucleated RBC % (auto) PT INR Anion Gap Estim Creat Clear Calc Estimated GFR POC Glucose 135 H 198 H Random Glucose Estimat Average Glucose Hemoglobin A1c % Calcium Magnesium Total Bilirubin AST ALT Alkaline Phosphatase Troponin I High Sens Total Protein Albumin Urine Color Urine Appearance Urine pH Ur Specific [place] Urine Protein Urine Glucose (UA) Urine Ketones Urine Blood Urine Nitrite Ur Leukocyte Esterase Urine RBC Urine WBC Ur Squamous Epith Cells Urine Bacteria Hyaline Casts Urine Opiates Screen Ur Buprenorphine Scrn Ur Oxycodone Screen Urine Methadone Screen Urine Fentanyl Screen Ur Barbiturates Screen Ur Phencyclidine Scrn Ur Amphetamines Screen U Benzodiazepines Scrn Urine Cocaine Screen U Marijuana (THC) Screen Ethyl Alcohol Respiratory Panel Carrion Adenovirus (Rapid PCR) B.pert (TEM-PCR) B.parapertussis DNA PCR C. pneumoniae DNA (PCR) Coronavirus OC43 (PCR) Coronavirus HKU1 (PCR) Coronavirus 229E (PCR) Coronavirus NL63 (PCR) Human Metapneumovir PCR Influenza A (RT-PCR) Influenza Type A (PCR) Influenza B (RT-PCR) Influenza Type B (PCR) M. pneumoniae (PCR) Parainfluenza 1 (PCR) Parainfluenza 2 (PCR) Parainfluenza 3 (PCR) Parainfluenza 4 (PCR) RSV (PCR) RSV RNA Qual (PCR) Entero/Rhino (PCR) SARS-CoV-2 RNA (RT-PCR) Assessment and Plan (1) Prolonged QT interval: Status: Acute (2) Seizure disorder: Status: Acute (3) Speech problem: Status: Acute Plan A 78 years old male with PMH of DMII, HLD, BPH, OBesity, ANKIT not using CPAP, BPPV among others who presents to the hospital with confusion and speech problem. Confusion, speech problem likely 2/2 Seizure disorder and breakthrough seizure CT negative for acute insult Loaded with Keppra Increase Keppra to 750 mg bid EEG ordered Neurology input appreciated, Increase KEppra Tolerated diet PT eval Ativan PRN for seizures Prolonged QTc was 490ss on admission K keep it >4, Mg keep >2 Corrected with QTc 416s Hx TIA ASA, Statin DMII Hold PO meds SSI diabetic diet HTN Metoprolol, Amlodipine DVT PPx Lovenox The patient will be monitored for possible seizures pending PT evaluation Quality Stroke Does the patient have a stroke diagnosis?: No VTE Prior VTE?: No VTE Risk Level:: Medical - moderate - high VTE Device Contraindication: Treatment Not Indicated VTE Drug Contraindication: N/A - Med Ordered
--- NOTE | 2024-08-02 16:00 | MHC.CM.PN ---
CM MET WITH PT WHO REPORTS HE LIVES WITH HIS CHILDREN, HOWEVER RECORDS INDICATE PT LIVES ALONE PT SAYS HE HAS SERVICES FOR CLEANING AND COOKING, HE IS UNSURE IF HE HAS NURSING SERVICES HE DENIES USING DME OTHER THAN DIABETIC SUPPLIES CM ATTEMPTED TO CONTACT PTS SON, ELLEN [phone], TO CONFIRM INFORMATION. A VM MESSAGE WAS LEFT REQUESTING A RETURN CALL. PCP: [facility] [employer] [facility] DELIVERED [facility] DCP: HOME WITH RESUMPTION OF SERVICES VIA FAMILY TRANSPORT
[2024-08-02 16:02] LABS: Glucose, Whole Blood 148 mg/dL (60-115)
[2024-08-02] MEDS: Enoxaparin Sodium 40 MG/0.4 ML SYRINGE SUBCUT (16:10)
[2024-08-02 20:21] VITALS: BP 144/65; PULSE 70; RESP 20; TEMP 36.1; O2SAT 95
[2024-08-02] MEDS: levETIRAcetam 250 MG TABLET 750 MG PO (20:38)
[2024-08-02] MEDS: Insulin Glargine,Hum.rec.anlog 100 UNIT/ML 10 ML VIAL 15 UNIT SUBCUT (20:39)
[2024-08-02 20:40] LABS: Glucose, Whole Blood 139 mg/dL (60-115)
[2024-08-02 22:00] VITALS: BP 131/71; PULSE 63; RESP 16; TEMP 36.1
[2024-08-03 04:13] VITALS: BP 121/60; PULSE 61; RESP 16; TEMP 36.7; O2SAT 94
[2024-08-03 07:29] VITALS: BP 141/80; PULSE 73; RESP 16; TEMP 36.9; O2SAT 94
[2024-08-03 07:42] LABS: Glucose, Whole Blood 155 mg/dL (60-115)
[2024-08-03] MEDS: amLODIPine Besylate 10 MG TABLET PO (07:56)
[2024-08-03] MEDS: Aspirin Enteric Coated 81 MG TABLET.DR PO (07:56)
[2024-08-03] MEDS: Diclofenac Sodium Delayed Rel 75 MG TABLET.DR PO (07:56)
[2024-08-03] MEDS: Docusate Sodium 100 MG CAPSULE 200 MG PO (07:56)
[2024-08-03] MEDS: Insulin Lispro 100 UNIT/ML 3 ML VIAL SUBCUT ×2 (07:57→12:05)
[2024-08-03] MEDS: levETIRAcetam 250 MG TABLET 750 MG PO (07:57)
[2024-08-03] MEDS: Atorvastatin Calcium 40 MG TABLET PO (07:57)
[2024-08-03] MEDS: Metoprolol Succinate ER 100 MG TAB.ER.24H PO (07:57)
[2024-08-03] MEDS: 0.9 % Sodium Chloride Flush 3 ML SYRINGE IVFLUSH (08:00)
[2024-08-03 10:30] VITALS: PULSE 85
[2024-08-03 11:10] VITALS: BP 117/66; PULSE 74; RESP 16; TEMP 36.6; O2SAT 92
--- NOTE | 2024-08-03 11:35 | MHC.CM.PN ---
PT is recommending home with services and CM will continue to follow.
[2024-08-03 11:50] LABS: Glucose, Whole Blood 189 mg/dL (60-115)
--- NOTE | 2024-08-03 12:07 | P.DS_ITS ---
DS: Providers Provider Date of Service: 08/03/24 Date of admission: 08/02/24 13:21 Date of discharge: 08/03/24 Primary care physician: Ashtyn Mcmahon MD Consults: 08/01/24 16:43 Consult to Neurology Routine Consulting Provider: [facility] Reason for consultation: Confusion, speech problem DS: Diagnosis Discharge Diagnosis (1) Prolonged QT interval: Status: Acute (2) Seizure disorder: Status: Acute (3) Speech problem: Status: Acute DS: Summary Hospital Course Hospital Course: Admission note HPI A 78 years old male with PMH of DMII, HLD, BPH, OBesity, ANKIT not using CPAP, BPPV among others who presents to the hospital with confusion and speech problem. The patient was evaluated for similar presentaiton last month and was found to have a likely underlying seizure problem. presenting today with similar complaints as his son report finding his father home with altered mentation and confusion with difficulties finding words. He was recently sick with cold like symptoms. In ED , Labs unremarkable, UA neg, viral serology negative, CXR neg. CT head negative. admitted for further evaluation and management. Hospital course The patient was admitted for management of confusion, speech problem likely secondary to Seizure disorder and breakthrough of partial complex seizure as CT negative for acute insult and he was evaluated for similar presentation last month with abnormal EEG and Neurology recommendations to start Keppra. It is unclear if the patient was taking the medication but there is a good chance that he was not. No evidence of infection found. He was Loaded with Keppra and Increased Keppra dose to 750 mg bid as he was seen by Neurology who recommended the same. confusion resolved and speech improved back to baseline but he complained of feeling sedated and sleepy. Family raised concerns that he lives alone. we agreed to keep him on 500 mg keppra bid for now and follow with neurology as outpatient for further adjustment of needed. He was evaluated by PT who recommended home PT. Prolonged QTc noticed on admission and was 490. K keep it >4, Mg keep >2. Corrected with QTc 416s. Discharge plan Start Levetiracetam 500 mg two times a day Start physical therapy at home be aware with changing position to avoid falling Follow with neurology as needed Time Attestation Discharge Coordination Time (in mins): 42 Quality: Safe Use of Opioids Does Pt have an Active Cancer Diagnosis on the Problem List?: No Quality: Stroke Does the patient have a stroke diagnosis?: No Physical Exam Vital Signs: Vital Signs: Last Vital Signs Temp 97.8 F 08/03/24 11:10 Pulse 74 08/03/24 11:10 Resp 16 08/03/24 11:10 BP 117/66 08/03/24 11:10 Pulse Ox 92 08/03/24 11:10 O2 Del Method Room Air 08/03/24 07:29 BMI result Body Mass Index 40.3 Const: Other: Constitutional : Awake, interactive, not in distress Neck : Normal inspection, Supple Cardiovascular : RRR, no JVP, no lower extremity edema Respiratory : good bilateral air entry, no crackles, wheezes or rhonchi Gastrointestinal: soft, lax, Normal bowel sounds, Non tender Skin : Warm, Dry Neurological : Alert & oriented, follow commands, CN within normal, no focal weakness. DS: Data Data Completed and Pending Labs on day of discharge: Laboratory Results - last 24 hr 08/02/24 08/02/24 08/03/24 15:59 20:31 07:31 POC Glucose 148 H 139 H 155 H 08/03/24 11:08 POC Glucose [address] scan - head: Radiologist's impression: CT Head Impression: No acute findings. This document has been electronically signed by: Sirisha Stacy MD on 08/01/2024 15:49:45 CT Abdomen Impression: The appendix is not visualized. No secondary signs of acute appendicitis Motion limits evaluation of the kidneys. Decreased enhancement of the kidneys can not be excluded; correlate with urinalysis to exclude pyelonephritis. This document has been electronically signed by: Sirisha Stacy MD on 08/01/2024 16:04:36 Discharge Plan Discharge Anticipated Discharge Date/Time: 08/03/24 11:57 Patient Disposition: Home Health Service Discharge Diagnosis: Seizure disorder Referrals: Ashtyn Mcmahon MD [Primary Care Provider] - 1 Week Discharge Medications: New levetiracetam 500 mg tablet 500 mg PO BID Qty: 180 0RF Continued atorvastatin 40 mg tablet 1 tab PO DAILY metformin 500 mg tablet 2 tab PO BID aspirin 81 mg tablet,delayed release (DR/EC) 1 tab PO DAILY acetaminophen 500 mg tablet 500 mg PO Q6H PRN (Reason: Pain) amlodipine 10 mg tablet 10 mg PO DAILY docusate sodium 100 mg capsule 200 mg PO DAILY diclofenac sodium 75 mg tablet,delayed release (DR/EC) 75 mg PO BID lactulose 10 gram/15 mL solution 15 ml PO DAILY insulin glargine U-300 conc [Toujeo SoloStar U-300 Insulin] 300 unit/mL (1.5 mL) insulin pen 60 unit subcut BEDTIME Mounjaro 15 mg/0.5 mL pen injector 15 mg subcut TU@0900 metoprolol succinate 100 mg tablet extended release 24 hr 100 mg PO BID sennosides [senna] 8.6 mg tablet 17.2 mg PO DAILY PRN (Reason: Constipation) clotrimazole-betamethasone 1-0.05 % cream 1 appl topical BID PRN (Reason: fungal infection) insulin lispro [Humalog U-100 Insulin] 100 unit/mL Solution 1 sliding scale dose SUBCUT TIDAC Jardiance 10 mg tablet 10 mg PO DAILY Discontinued levetiracetam [Keppra] 250 mg tablet 250 mg PO BID Qty: 180 0RF Discharge Orders: Discharge Order (Routine); Ordered 08/03/24 Ordered By: Ela Lees Diet: Advance to usual diet Activity on Discharge: As tolerated Stand Alone Forms: Patient Portal Discharge page Print Language: Macedonian Care Plan Goals: Start Levetiracetam 500 mg two times a day Start physical therapy at home be aware with changing position to avoid falling Follow with neurology as needed Health Concerns: Seizure disorder Plan of Treatment: Keppra Assessment: as above
--- NOTE | 2024-08-03 12:22 | MHC.CM.PN ---
Patient has been medically cleared for dc to home today, with services. Patient is active with [facility], who has been notified of today's dc. Last IMM addressed yesterday.
[2024-08-03 16:21] LABS: Glucose, Whole Blood 138 mg/dL (60-115)
--- NOTE | 2024-08-04 12:19 | P.CDIM_ITS ---
PROVIDER RESPONSE TEXT: To clarify, the appropriate diagnosis supported by the clinical indicators: Severe or Morbid Obesity Without alveolar hypoventilation QUERY TEXT: PHYSICIAN'S DOCUMENTATION REQUEST Date of Query: 08/03/2024 09:03 AM EST Patient Name: Rodolfo Michael Admit Date: 08/02/2024 Dear Ela Lees MD, A review of the medical record indicates additional documentation may be needed. Please review below and update the documentation accordingly. Clinical Indicators: Height: 5ft 8in Weight: 120.1kg BMI: 40.3 Other Clinical Notes Supporting Significance of the BMI: Nursing notes Height and Weight: Extreme obe sity class III with BMI 40.3 If possible, please provide an associated diagnosis related to the abnormal BMI, such as: Morbid obesity Severe or Morbid Obesity With alveolar hypoventilation Severe or Morbid Obesity Without alveolar hypoventilation Other diagnosis related to the high BMI Other (explain) Clinically unable to determine (explain) Thank you, Deysi Michael, CCS, CDIS Use of terms such as suspected, likely, concern for, or probable (associated with a specific diagnosi s that is being evaluated, monitored, or treated as if it exists) are acceptable and can be coded in the inpatient se tting, when documented at the time of discharge. Please use your independent medical judgment in providing your response. THIS QUERY IS PART OF THE PERMANENT MEDICAL RECORD
== END 2024-08-03 17:25 | disposition home health service (06) | DRG 101 ==
LOC: HO.ED 16:14 → HO.EDOVER 16:54 → HO.IMC 08-02 06:17
PROVIDERS: Registered Nurse Emergency; Admitting Provider Student in an Organized Health Care Education/Training Program; Emergency Provider Emergency Medicine; PCP Family Medicine; Visit Provider Student in an Organized Health Care Education/Training Program
DX: G40.909 Epilepsy, unspecified, not intractable, without status epilepticus (principal); Z68.41 Body mass index [BMI] 40.0-44.9, adult; G47.33 Obstructive sleep apnea (adult) (pediatric); E66.01 Morbid (severe) obesity due to excess calories; I10 Essential (primary) hypertension; E11.9 Type 2 diabetes mellitus without complications; T42.6X6A Underdosing of other antiepileptic and sedative-hypnotic drugs, initial encounter; R94.31 Abnormal electrocardiogram [ECG] [EKG]; Z20.822 Contact with and (suspected) exposure to COVID-19; Z86.73 Personal history of transient ischemic attack (TIA), and cerebral infarction without residual deficits; Z79.4 Long term (current) use of insulin; Z79.82 Long term (current) use of aspirin; Z79.84 Long term (current) use of oral hypoglycemic drugs; Z79.899 Other long term (current) drug therapy
CPT/HCPCS: 0241U; 36415; 70450; 71046; 74177; 80053; 80307; 81001; 82947; 83036; 83735; 84484; 85025; 85610; 87633; 93005; 95816; 97162; 99285; J1650; J1953; J3475; J3480; J7120; Q9967

== ENCOUNTER → 2024-08-01 13:44 | Outpatient (BNV) | payer OTHER, SELFPAY | PROVIDERS: Admitting Provider Student in an Organized Health Care Education/Training Program; Emergency Provider Emergency Medicine; PCP Family Medicine; Visit Provider Internal Medicine | DX: R94.31 Abnormal electrocardiogram [ECG] [EKG] (principal) | CPT/HCPCS: 93010 ==

== ENCOUNTER → 2024-08-01 13:45 | Outpatient (BNV) | payer OTHER, SELFPAY | PROVIDERS: Emergency Provider Emergency Medicine; PCP Family Medicine; Visit Provider Radiology Diagnostic Radiology | DX: R10.31 Right lower quadrant pain (principal); R41.82 Altered mental status, unspecified | CPT/HCPCS: 70450; 71046; 74177 ==

== ENCOUNTER → 2024-08-01 16:32 | Outpatient (BNV) | payer OTHER, SELFPAY | PROVIDERS: Admitting Provider Student in an Organized Health Care Education/Training Program; Emergency Provider Emergency Medicine; PCP Family Medicine; Visit Provider Psychiatry & Neurology Neurology | DX: G40.909 Epilepsy, unspecified, not intractable, without status epilepticus (principal) | CPT/HCPCS: 99222 ==

== ENCOUNTER → 2024-08-01 16:32 | Outpatient (BNV) | payer OTHER, SELFPAY | PROVIDERS: Admitting Provider Student in an Organized Health Care Education/Training Program; Emergency Provider Emergency Medicine; PCP Family Medicine; Visit Provider Student in an Organized Health Care Education/Training Program | DX: R94.31 Abnormal electrocardiogram [ECG] [EKG] (principal); G40.909 Epilepsy, unspecified, not intractable, without status epilepticus; R47.9 Unspecified speech disturbances | CPT/HCPCS: 99232; 99239 ==

== ENCOUNTER 2024-11-19 11:00 | Outpatient (RCR) | payer OTHER, SELFPAY ==
[2024-11-04 11:05] VITALS: BP 135/67; PULSE 70
== END 2025-01-12 17:35 | disposition home or self-care (01) ==
LOC: HO.PT 11:00
PROVIDERS: PCP Family Medicine; Visit Provider Family Medicine
DX: H81.11 Benign paroxysmal vertigo, right ear (principal)
CPT/HCPCS: 95992; 97162

== ENCOUNTER 2025-01-14 13:43 | Outpatient (AMB) | payer OTHER, SELFPAY ==
--- OUTSIDE RECORDS SUMMARY | 2024-10-05 04:22 | XMS_ITS ---
Author Organization [facility] [place] [address] Care Team Providers Care Potato Spotter Name Role Phone Ashtyn Mcmahon Primary Care Provider Unavailab le Clinical, Operations Unavailable Unavailable REASON FOR VISIT CRU Inquiry Encounters Encounter Location Date Provider Diagnosis [facility] [address] [place] [address] 10/05/2024 Operations Clinical Plan Of Treatment No Information Progress Notes * Rodolfo LEONDOB:[birth year] (79 yo M)Acc No.[id number]:10/05/2024 Patient: Pepe EDWARDS Rodolfo :1945 A ge:79 Y S ex:Male Address:[address] [place] [address] [address], [place] [address] * true * Date: Generated for Jasmyn palomares/Nicolette/eTransmitting on: 0 01/14/2025 04:34 PM EDT
[2025-01-14 13:53] VITALS: BP 127/74; PULSE 80; RESP 18; O2SAT 100; BMI 41.5
--- NOTE | 2025-01-14 13:53 | MHC.OFFVIS ---
Vital Signs 01/14/25 13:53 Height 5 ft 8 in Weight 273 lb BMI 41.5 BP 127/74 Blood Pressure Location Rt brachial Position Sitting Respiration 18 Pulse 80 Pulse Source Pulse Oximeter Pulse Oximetry (%) 100 Oxygen Delivery Method Room Air Intake Visit Reasons: Follow Up Pt Request Packer And Carry Out Required: No Allergies Penicillins Allergy (Unknown, Verified 01/14/25 13:54) Swelling Sulfa (Sulfonamide Antibiotics) Allergy (Unknown, Verified 01/14/25 13:54) Swelling HPI Comments Details: Rodolfo is back in my office after he thought a 2nd opinion in [facility]. He went there and he was seen by Dr.Andrey Peguero, he received some injections which patient called intradiscal injections however unfortunately it is not known to the patient what injections he actually received. He also was prescribed some medications by this doctor. Unfortunately neither injections no this medications help the patient's pain. He is back and he requests my help. Last time I sent him for MRI and his MRI was not completed. The machine went broke under the patient. I will schedule him for new complete MRI at [facility]. Hopefully the MRI at [facility] will be able to tolerate the weight of the patient. Prior: diagnostic cluneal nerve block on the left. The patient reported today that he came home after the injection and went to bed, he did not perform most painful maneuvers which would aggravate her pain, he reported that the pain before the procedure was 4/10, the pain after the procedure was 0/10 however patient said that he was under anesthesia and he did not remember how it felt. 1 hour after the procedure the patient was again 0/10 with all limitations described above. 2 hours after the procedure 3 hours after the procedure and 4 hours after the procedure the patient's pain was 3/10, it is hard to assess what happened after that because patient was resting and not performing aggravating maneuvers and motions. The patient wants to go for 2nd opinion in [facility] he reports that there he will go for appointment with neurosurgeon as well as for the appointment with pain management physician. 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 The MRI is scheduled on February 17. Results of diagnostic sacroiliac joint injection: He reports no pain relief after the procedure. Before that he had diagnostic medial branch block which also did not help him much. He fell asleep after the procedure and the results therefore were inconclusive. He reports that he had MRI lumbar spine 5 years ago. I decided to send him for the MRI of the lumbar spine to reassess his lumbar spine conditions. Prior: very pleasant 77 years old gentleman who presents in my office with complains on pain in the lower back more to the left side. He reported the pain started approximately 3 years ago. He denies inciting events. He reports that standing hurts more than sitting sitting and laying down he experiences no pain. He reports that he can not do daily activities because of his pain, he can not take care of himself but he can not function normally. He had physical therapy April 2023 he had 12 sessions unfortunately it did not help his pain. [facility] Medical History Low back pain BPV (benign positional vertigo) ANKIT (obstructive sleep apnea) Depression Obesity Diabetes Surgical History Hx of laparoscopic gastric banding Hx of cholecystectomy Social History Household Members: None Housing: Apartment Do you presently have visiting nurse or other home services: No Alcohol intake: never Patient Tobacco Use Status: Never used Tobacco service: No Review of Systems Const All systems reviewed & are unremarkable except as noted in HPI and below ENT Reports Normal hearing present Neuro Reports Normal hearing present, Denies Abnormal speech present, Denies confusion and Denies Sensory deficit (Neuro) Psych Denies confusion Physical Exam Vital Signs: Last Vital Signs Pulse 80 01/14/25 13:53 Resp 18 01/14/25 13:53 BP 127/74 01/14/25 13:53 Pulse Ox 100 01/14/25 13:53 Oxygen Delivery Method Room Air 01/14/25 13:53 BMI result Body Mass Index 41.5 Const General: No confusion Nutritional Appearance: obese morbidly obese Orientation/consciousness: No confusion Eyes General: appearance normal, both eyes and all related structures Pupils: Equal, round and reactive pupils present EOM: EOMs intact bilaterally Neck Neck: Yes full ROM Chest Chest palpation & inspection: normal inspection of the chest Resp Effort & Inspection: normal respiratory effort, able to speak in complete sentences, normal respiratory pattern, no audible wheezes and no cough Cardio Jugular venous distension: no JVD GI Inspection: Yes normal to inspection Back/Spine/Pelvis Other: Able to stand on bilateral tiptoes in bilateral heels without difficulty. Able to lift great toe in separation of the rest of the toes. Denies numbness and weakness on bilateral lower extremities. Denies Valsalva maneuver aggravating his pain. Denies pelvic organ dysfunction. SLR is negative for pain increase.Lassegue test is negative for pain increase. Jordan test is negative for pain increase. No tenderness on palpation in paraspinal spinal region of the lumbar spine reports most of the tenderness on palpation in the projection of the left iliac crest. Loading test is negative bilaterally. Neuro General: No confusion Cranial nerves: Yes Equal, round and reactive pupils present and Yes Normal hearing present Speech: No Abnormal speech present Gait exam (Neuro): Normal gait present Motor exam (neuro): 5/5 motor strength present throughout Sensory Exam: No Sensory deficit (Neuro) Extrem General: No pedal edema Psych Speech and movement: Normal speech and movement present Affect: normal affect Attitude: cooperative Thought process: Normal thought process present Thought content: Normal thought content present Insight: Good insight present (Psych) Judgement: Good judgement present (Psych) Results Reviewed Results Reviewed: XR LUMBOSACRAL SPINE FINDINGS: The bones are diffusely demineralized. Degenerative changes in the imaged lower thoracic spine. Atherosclerotic aortoiliac calcifications. Degenerative changes in the imaged left sacroiliac joint. Facet arthritis in the [id number] lumbar spine. Multilevel lumbar spondylosis with advanced degenerative changes and loss of disc space height at L5-S1. IMPRESSION: Multilevel lumbar spondylosis with advanced degenerative changes and loss of disc space height at L5-S1. Assessment & Plan Assessment & Plan (1) Spondylosis of lumbar region without myelopathy or radiculopathy: Code(s): M47.816 - Spondylosis without myelopathy or radiculopathy, lumbar region Category: Medical (2) Chronic pain syndrome: Code(s): G89.4 - Chronic pain syndrome Category: Medical (3) Mononeuropathy, unspecified: Code(s): G58.9 - Mononeuropathy, unspecified Category: Medical (4) Sacroiliitis: Code(s): M46.1 - Sacroiliitis, not elsewhere classified Category: Medical (5) Sacroiliac joint dysfunction of left side: Code(s): M53.3 - Sacrococcygeal disorders, not elsewhere classified Category: Medical (6) Mononeuropathy, unspecified: Code(s): G58.9 - Mononeuropathy, unspecified Category: Medical Plan Rodolfo went for physical therapy and he reported no improvement of his pain. I sent him for the x-ray and results of the x-ray dictated as above. Diagnostic medial branch block resulted in no pain improvement. X-ray is positive for left SI joint pathology. However the diagnostic SI joint injection resulted in very minimal if any pain improvement. Diagnostic cluneal nerve block also nonconclusive as described above. MRI for lumbar spine scheduled on 02/18/2024 resulted in less than substantial images because the device could not tolerate patient's weight. I will send him for yet another MRI now it [facility]. They have more reliable MRI devices capable of holding heavier patients.. He went for consult in [facility] received some injections and was prescribed some medications there. Neither the medications no injections were helpful for the patient. We will obtain the information from [facility] about what injections he received and what medications he was prescribed. The patient has signed sacral information release note. The patient will call us after he will receive MRI at [facility] and he will schedule appointment with me. Orders: Orders MR lumbar spine wo con Today M47.816 - Spondylosis without myelopathy or radiculopathy, lumbar region Coding Level of Care Code Est Pt Level 3 (29228) Diagnoses Spondylosis of lumbar region without myelopathy or radiculopathy M47.816 Chronic pain syndrome G89.4 Mononeuropathy, unspecified G58.9 Sacroiliitis M46.1 Sacroiliac joint dysfunction of left side M53.3
== END 2025-01-14 14:17 | disposition home or self-care (01) ==
PROVIDERS: PCP Family Medicine; Visit Provider Anesthesiology
DX: M47.816 Spondylosis without myelopathy or radiculopathy, lumbar region (principal); G89.4 Chronic pain syndrome; G58.9 Mononeuropathy, unspecified; M46.1 Sacroiliitis, not elsewhere classified; M53.3 Sacrococcygeal disorders, not elsewhere classified
CPT/HCPCS: 99213

== ENCOUNTER → 2025-01-14 13:43 | Outpatient (BNVA) | payer OTHER, SELFPAY | PROVIDERS: PCP Family Medicine; Visit Provider Anesthesiology | DX: M47.816 Spondylosis without myelopathy or radiculopathy, lumbar region (principal); G89.4 Chronic pain syndrome; G58.9 Mononeuropathy, unspecified; M46.1 Sacroiliitis, not elsewhere classified; M53.3 Sacrococcygeal disorders, not elsewhere classified | CPT/HCPCS: 99212 ==

== ENCOUNTER 2025-01-28 11:17 | Outpatient (AMB) | payer OTHER, SELFPAY ==
--- NOTE | 2025-01-28 11:33 | A.OFFVIS_ITS ---
Intake Visit Reasons: fu to discuss letter for reasonable accommodations Allergies Penicillins Allergy (Unknown, Verified 01/14/25 13:54) Swelling Sulfa (Sulfonamide Antibiotics) Allergy (Unknown, Verified 01/14/25 13:54) Swelling Medication List - Last Reconciled 01/28/25 by José Gamble MD acetaminophen 500 mg PO Q6H PRN amlodipine 10 mg PO DAILY aspirin 1 tab PO DAILY atorvastatin 1 tab PO DAILY clotrimazole-betamethasone 1-0.05 % 1 appl topical BID PRN diclofenac sodium 75 mg PO BID docusate sodium 200 mg PO DAILY donepezil 10 mg PO BEDTIME empagliflozin (Jardiance) 10 mg PO DAILY insulin glargine U-300 conc (Toujeo SoloStar U-300 Insulin) 60 units subcut BEDTIME insulin lispro (Humalog U-100 Insulin) 1 sliding scale dose subcut TIDAC lactulose 15 mL PO DAILY levetiracetam 500 mg PO BID metformin 2 tabs PO BID metoprolol succinate ER 100 mg PO BID sennosides (senna) 17.2 mg PO DAILY PRN sertraline 50 mg PO DAILY tirzepatide (Mounjaro) 15 mg subcut TU@0900 HPI Comments Details: 79 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 His brain imaging revealed moderate generalized atrophy, and an EEG revealed right temporal sharp waves. He was treated for complex partial seizure disorder. [facility] Medical History (Updated 01/28/25 @ 11:44 by José Gamble MD) Hyperlipidemia Hypertension Alzheimer disease Complex partial seizure disorder Seizure disorder Low back pain BPV (benign positional vertigo) ANKIT (obstructive sleep apnea) Depression Obesity Diabetes Surgical History Hx of laparoscopic gastric banding Hx of cholecystectomy Family History (Updated 01/28/25 @ 10:29 by Kashif Ruby MA) Father Heart disease Mother Breast cancer Social History Household Members: None Housing: Apartment Do you presently have visiting nurse or other home services: No Alcohol intake: never Patient Tobacco Use Status: Never used Tobacco service: No Review of Systems Const Details: Constitutional:?No fever, chills, fatigue, weight loss, or night sweats. HEENT:?No headache, vision changes, hearing loss, nasal congestion, sore throat. Neurological:?No dizziness, syncope, seizures, numbness, tingling, weakness, tremors, memory loss. Psychiatric:?No anxiety, depression, mood swings, sleep disturbance, or hallucinations. Endocrine:?No heat/cold intolerance, polydipsia, polyuria, or hair/skin changes. Hematologic/Lymphatic:?No easy bruising, bleeding, or lymphadenopathy. Integumentary (Skin):?No rash, lesions, itching, or color changes. ? Assessment & Plan Assessment & Plan (1) Complex partial seizure disorder: Comment: CT brain WO at [facility] in Jul 2024: Mod diff atrophy MRI brain WO at [facility] in Jun 2024: Mod diff atrophy CTA brain and neck at [facility] in Jun 2024: OKEEG at [facility] in Jul 2024: Mild slowing EEG at [facility] in Jun 2024: Gen slowing, R temp sharp theta EKG at [facility] in Jul 2024: 1st deg AV block. Code(s): G40.209 - Localization-related (focal) (partial) symptomatic epilepsy and epileptic syndromes with complex partial seizures, not intractable, without status epilepticus Category: Medical (2) Alzheimer dementia: Code(s): G30.9 - Alzheimer's disease, unspecified; F02.80 - Dementia in other diseases classified elsewhere, unspecified severity, without behavioral disturbance, psychotic disturbance, mood disturbance, and anxiety Category: Medical Qualifiers: Alzheimer's disease onset: late onset Dementia severity: moderate Dementia behavioral or psychological symptom: with anxiety Qualified Code(s): G30.1 - Alzheimer's disease with late onset; F02.B4 - Dementia in other diseases classified elsewhere, moderate, with anxiety Plan Impression: 1. Complex partial seizure disorder 2. Alzheimer dementia Recommendations: 1. Levetiracetam 500 mg twice a day 2. Donepezil 10 mg at bedtime 3. Sertraline 25 mg in the morning 4. Reasonable accommodation for ground floor or 1 level residence to avoid any accidents or falls Coding Level of Care Code Tele Est Pt Level 4 (65582) Diagnoses Complex partial seizure disorder G40.209 Moderate late onset Alzheimer's dementia with anxiety G30.1; F02.B4 Alzheimer's disease onset: late onset Dementia severity: moderate Dementia behavioral or psychological symptom: with anxiety
--- OUTSIDE RECORDS SUMMARY | 2025-01-28 11:59 | XMS_ITS | Patient Health Record ---
Author Organization [facility] liance Address [address] [place] [address] Care Team Providers Care Telecommunication Tower Technician Name Role Phone Lisandro Ashtyn Primary Care Provider Unavailab le Clinical, Operations Unavailable Unavailable Harleen Alexander Unavailable [phone] Jonatan Mervat Unavailable [phone] Allergies Allergen (clinical drug ingredient) Drug/Non Drug Allergy documented on EMR Reaction Allergy Type Onset Date Status Penicillin Unknown Drug Allergy Active Substance with sulfonamide structure and antibacterial mechanism of action (substance) Sulfa Antibiotics Unknown Drug Allergy Active Reason For Referral Reason Initial PCHM 13.5 ho urs per week (Auth: [id number]) Diagnosis 1 Debility (R53.81) Referring Provider First Name Operations Referring Provider Last Name Clinical Referring Provider Speciality Unknown Referred Provider [facility]erred Provider Specialty Adult Foster Care General Notes This referral is jessi ng sent to supply the member's demographic information for Authorization # ([id number]) This is in addition to the Approval Letter that was sent from [facility]. If for any reason you are unable to accommodate this request, please call [facility] at [phone] Thank You. Referral Priority Routine Reason Initial PCHM 13.5 ho urs per week (Auth: [id number]) Diagnosis 1 Debility (R53.81) Referring Provider First Name Operations Referring Provider Last Name Clinical Referring Provider Speciality Unknown Referred Provider [facility] [employer] [facility] [employer] General Notes This referral is jessi ng sent to supply the member's demographic information for Authorization # ([id number]) This is in addition to the Approval Letter that was sent from [facility]. If for any reason you are unable to accommodate this request, please call [facility] at [phone] Thank You. Referral Priority Routine Medications Medication SIG (Take, Route, Frequency, Duration) Notes Start Date End Date Status Metoprolol Succinate ER 100 MG 1 tablet Orally Once a day Active Lactulose 10 GM/15ML 15 mL as needed Orally Once a day Active Atorvastatin Calcium 40 MG 1 tablet Orally Once a day Active Diclofenac Sodium 75 MG 1 tablet as needed Orally Twice a day Active traZODone HCl 50 MG 1 tablet at bedtime as needed Orally Once a day @ HS PRN No longer taking Not-Taking Mounjaro 15 MG/0.5ML as directed Subcutaneous Active Colace 100 MG 2 capsules Orally Once a day Active LORazepam 0.5 MG 1 tablet at bedtime as needed Orally Once a day No longer taking Not-Taking Insulin Lispro 100 UNIT/ML as directed Injection Sliding scale Unknown Sqsohahznw-UKIS-Xftwm ine 50-325-40 MG 1 tablet as needed Orally every 4 hrs No longer taking Not-Taking metFORMIN HCl 500 MG 2 tablets with a meals Orally twice a day Active Senna 8.6 MG 1 tablet at bedtime as needed Orally twice per day Active Jardiance 10 MG 1 tablet Orally Once a day Active Vitamin B-12 500 MCG 1 tablet Orally Once a day Not-Taking Aspirin Adult Low Dose 81 MG 1 tablet Orally Once a day Active Venlafaxine HCl ER 150 MG 1 capsule with food Orally Once a day Not-Taking amLODIPine Besylate 10 MG 1 tablet Orally Once a day Active Meclizine HCl 25 MG 1 tablet as needed Orally every 12 hrs Not-Taking Acetaminophen Extra Strength 500 MG 2 tablets as needed Orally every 8 hrs Active Clotrimazole 1 % 1 application Externally Twice a day Active Toujeo SoloStar 300 UNIT/ML 70 units Subcutaneous daily Active Immunizations Vaccine Route Administration Date Status Comme nts COVID-19 COMIRNATY Vaccine, Fall 2022, SARS-CoV-2 virus strain Omicron XBB.1.5 Unknown 04/22/2023 Administered COVID-19 COMIRNATY Vaccine, Fall 2022, SARS-CoV-2 virus strain Omicron XBB.1.5 Unknown 03/28/2024 Administered Flu Vac (Fluad) QIV PFS Adjuvanted Unknown 04/27/2021 A dministered Flu Vac NOC (vac given elsewhere/pt. refuse/ CI) Unknown 04/21/2022 Administered Influenza, high dose seasonal Unknown 03/18/2024 Admini stered influenza, high-dose, quadrivalent Unknown 04/22/2023 A dministered Pfizer-BioNTech COVID-19 Vac cine 12+ IM Unknown 01/18/2022 Administered Pfizer-BioNTech COVID-19 Vaccine IM Unknown 09/04/2020 Administered Pfizer-BioNTech COVID-19 Vaccine IM Unknown 09/25/2020 Administered Pfizer-BioNTech COVID-19 Vaccine IM Unknown 05/02/2021 Administered Pneumococcal Vac (Pneumovax 23) SDV / PFS, IM Unknown 08/31/2021 Administered Td Vaccine, 7 Yrs or Older, SDV, IM Unknown 08/31/2021 Administered Zoster Vac (Shingrix) Recombinant Unknown 01/18/2022 Ad ministered Problems Problem Type SNOMED Code ICD Code Onset Dates Problem Status W/U Status Risk Notes Problem Obesity (792183707) Obesity (E66.9) Active confirmed Problem Obstructive sleep apnea syndrome (74546724) ANKIT (obstructive sleep apnea) (G47.33) Active confirmed Problem Hypertension (11825915) HTN (hypertension) (I10) Active confirmed Problem Vertigo (309015749) Vertigo (R42) Active confirmed Problem Benign prostatic hyperplasia (217315211) BPH (benign prostatic hyperplasia) (N40.0) Active confirmed Problem DM - Diabetes mellitus (02885594) DM (diabetes mellitus) (E11.9) Active confirmed Problem 01398377 Other chronic pain (G89.29) Active confirmed Problem Mild major depression, single episode (28863250) Mild major depression, 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) Active confirmed Encounters Encounter Location Date Provider Diagnosis [address] [address] 07/08/2024 Harleen Alexander [address] [address] 08/05/2024 Harleen Alexander [address] [address] 08/05/2024 Harleen Alexander [facility] [address] [place] [address] 10/05/2024 Operations Clinical [address] [place] [id number] 12/02/2024 Operations Clinical [facility] [address] [place] [id number] 12/30/2024 Mervat Cheung Vertigo R42 ; Other chronic pain G89.29 and Low back pain, unspecified M54.50 Assessments Encounter Date Diagnosis (ICD Code) Assessment Notes Treatment Notes Treatment Clinical Notes Section Notes 12/30/2024 Vertigo (ICD-10 - R42) Member is a 79 y o male who is referred to PT for assessment of PLR per request. Member presents at his functional baseline of (I)CE with chronic LBP, mildly impaired gait, impaired balance and endurance with mild SOB on exertion. This member does not at this time appear to meet clinical eligibility requirements for PLR per [id number] and a recommendation to deny is being submitted. Member is mod (I) to stand from all surfaces in his home with B UE support, this DME is not indicated for pain control. Member was advised of time frames for approval/denial and subsequent steps to include ability to appeal if the denial is needed. Member agreed with this PT while stating he is upset that PT repeated 4x the instructions throughout the assessment. PT stated it was simply to make sure that he understood the process. Member agreed to this POC 12/30/2024 Other chronic pain (ICD-10 - G89.29) Member is a 79 y o male who is referred to PT for assessment of PLR per request. Member presents at his functional baseline of (I)CE with chronic LBP, mildly impaired gait, impaired balance and endurance with mild SOB on exertion. This member does not at this time appear to meet clinical eligibility requirements for PLR per [id number] and a recommendation to deny is being submitted. Member is mod (I) to stand from all surfaces in his home with B UE support, this DME is not indicated for pain control. Member was advised of time frames for approval/denial and subsequent steps to include ability to appeal if the denial is needed. Member agreed with this PT while stating he is upset that PT repeated 4x the instructions throughout the assessment. PT stated it was simply to make sure that he understood the process. Member agreed to this POC 12/30/2024 Low back pain, unspecified (ICD-10 - M54.50) Member is a 79 y o male who is referred to PT for assessment of PLR per request. Member presents at his functional baseline of (I)CE with chronic LBP, mildly impaired gait, impaired balance and endurance with mild SOB on exertion. This member does not at this time appear to meet clinical eligibility requirements for PLR per WVQ604 and a recommendation to deny is being submitted. Member is mod (I) to stand from all surfaces in his home with B UE support, this DME is not indicated for pain control. Member was advised of time frames for approval/denial and subsequent steps to include ability to appeal if the denial is needed. Member agreed with this PT while stating he is upset that PT repeated 4x the instructions throughout the assessment. PT stated it was simply to make sure that he understood the process. Member agreed to this POC Plan Of Treatment No Information Insurance Providers Payer Name Payer Address Payer Phone Subscriber Number Group Number Insured Name Patient Relationship to Insured Coverage Start Date Coverage End Date [facility] SCO ([id number]) [id number] [phone] [id number] Rodolfo Azul Self - patient is the insured 3 9 Medical (General) History Medical History History ICD Code 2019 - cataract surgery 2021 - broken right leg
--- OUTSIDE RECORDS SUMMARY | 2025-01-28 11:59 | XMS_ITS | Clinical Summary ---
Author Organization [facility] it Address [address] [place] [address] Care Team Providers Care Customer Service Sales Consultant Name Role Phone Unavailable Primary Care Provider Unavailabl e Surgical History Surgery Date Site/Laterality Comments LAPAROSCOPIC GASTRIC BANDING PROCEDURE: LAP ADJUSTABLE GASTRIC BAND; COMMENT: at [facility] - removed 01/14/16 - Dr Sanches HERNIA REPAIR PROCEDURE: HISTORICAL HERNIA REPAIR/ING; COMMENT: times 2 COLONOSCOPY 10/01/2011 PROCEDURE: HISTORICAL COLONOSCOPY; COMMENT: Jennyfer Jimmy; Dim Tubular adenomas x 2. COLONOSCOPY 2006 PROCEDURE: HISTORICAL COLONOSCOPY; COMMENT: date approx; one small polyp COLONOSCOPY 11/16/2014 PROCEDURE: HISTORICAL COLONOSCOPY; COMMENT: Sessile serrated adenoma. Repeat 5 yrs APPENDECTOMY PROCEDURE: HISTORICAL APPENDECTOMY OTHER SURGICAL HISTORY 03/03/2019 PROCEDURE: [place] TRURL ELECTROSURG RESCJ PROSTATE BLEED COMPLETE CHOLECYSTECTOMY PROCEDURE: HISTORICAL CHOLECYSTECTOMY COLONOSCOPY 04/20/2020 PROCEDURE: HISTORICAL COLONOSCOPY; COMMENT: no polyps Medical History Medical History Date Comments CTS (carpal tunnel syndrome) 11/03/2012 DX: CTS (carpal tunnel syndrome) Depression 11/03/2012 DX:Depression HTN (hypertension) 11/18/2012 DX:HTN (hyper tension) DM (diabetes mellitus), type 2 with neurological complications (CMS/HCC V24, CMS/HCC V28) 09/02/2017 DX:DM (diabetes mellitus), t ype 2 with neurological complications (HCC) Hyperlipidemia 11/18/2012 DX:Hyperlipidemi a Proteinuria 12/24/2012 DX:Proteinuria DM (diabetes mellitus), type 2 with renal complications (CMS/HCC V24, CMS/HCC V28) 04/28/2019 DX:DM (diabetes mellitus), t ype 2 with renal complications (HCC) Type 2 diabetes mellitus wit h cataract (CMS/HCC V24, CMS/HCC V28) 04/28/2019 DX:Type 2 diabetes mellitus with cataract (HCC) Chronic headaches 11/03/2012 DX:Chronic hea daches; COMMENT: 1-3/wk, Dr Otero Colon polyp 04/28/2019 DX:Colon polyp; COMMENT: 11/16/14 CN sessile serrated adenoma, Repeat 5 yrs Cataract 04/28/2019 DX:Cataract Insomnia 06/26/2018 DX:Insomnia Obstructive sleep apnea 09/27/2015 DX:Obstr uctive sleep apnea Osteoarthritis 04/25/2017 DX:Osteoarthriti s; COMMENT: Lubosacral Spine, Shoulders, Wrists, Hands, Severe obesity (BMI 35.0-39. 9) with comorbidity ([facility] V24, [facility] V28) 01/31/2015 DX:Severe obesi ty (BMI 35.0- 39.9) with comorbidity ([facility]); COMMENT: DIabetes, Hypertension, Hyperlipidemia, ANKIT, Osteoarthritis Family History Medical History Relation Name Comments No Known Problems Aunt No Known Problems Brother Hypertension Father CAD No Known Problems Maternal Grandfather No Known Problems Maternal Grandmother Breast cancer Mother Colon cancer Mother's side uncle No Known Problems Other No Known Problems Paternal Grandfather No Known Problems Paternal Grandmother No Known Problems Sister No Known Problems Uncle Blindness Neg Hx Cataracts Neg Hx Glaucoma Neg Hx Macular degeneration Neg Hx Strabismus Neg Hx Relation Name Status Comments Aunt Brother Father Maternal Grandfather Maternal Grandmother Mother Mother's side Other Paternal Grandfather Paternal Grandmother Sister Uncle Social History Tobacco Use Types Packs/Day Years Used Date Smoking Tobacco: Never Smokeless Tobacco: Never Alcohol Use Standard Drinks/Week Comments Yes 0 (1 standard drink = 0.6 oz pur e alcohol) Sex and Gender Information Value Date Recorded Sex Assigned at Not on file Legal Sex Male 8:41 AM EST Gender Identity Not on file Sexual Orientation Not on file Obstetrics History Plan of Treatment Health Maintenance Due Date Last Done Comments Diabetes: Annual GFR (Glomerular Filtration Rate) 1946 Diabetes: Annual Foot Exam 1956 Diabetes: Annual Retina Eye Exam 1956 Zoster Vaccines (1 of 2) 1996 Hepatitis B Vaccines (3 of 3 - 19+ 3-dose series) 06/23/2015 01/26/2015, 12/22/2014 RSV Immunization Adult Patients (1 - 1-dose 75+ series) 2021 Cholesterol Screening (Lipid Panel) 06/30/2022 Depression Screening 06/30/2022 Falls Risk Assessment 06/30/2022 Hepatitis C Screening 06/30/2022 Social Influencers of Health Screening 06/30/2022 Diabetes: Annual Urine Albumin-Creatinine Ratio (uACR) 07/04/2022 Diabetes: Blood Sugar Control Test (HGBA1C) 07/04/2022 Hypertension/CHF/CAD Annual BMP Blood Test 07/04/2022 DTaP,Tdap,and Td Vaccines (2 - Td or Tdap) 12/24/2022 12/24/2012 COVID-19 Vaccine ( - season) 2024 05/02/2021, 09/25/2020, 09/04/2020 Influenza Vaccine (#1) 2025 , 07/11/2018, 04/27/2015, Additional history exists MMR Vaccines Aged Out 01/26/2015, 12/29/2014 No lo nger eligible based on patient's age to complete this topic Pneumococcal Vaccine: 50+ Years Completed 05/31/2017, 05/06/2013 HIB Vaccines Aged Out No longer eligi ble based on patient's age to complete this topic HPV Vaccines Aged Out No longer eligi ble based on patient's age to complete this topic Hepatitis A Vaccines Aged Out No long er eligible based on patient's age to complete this topic IPV Vaccines Aged Out No longer eligi ble based on patient's age to complete this topic Meningococcal ACWY Vaccine Aged Out N o longer eligible based on patient's age to complete this topic Meningococcal B Vaccine Aged Out No l onger eligible based on patient's age to complete this topic RSV Immunization Patients Under 20 months Aged Out No longer eligible based on patient's age to complete this topic Varicella Vaccines Aged Out No longer eligible based on patient's age to complete this topic Advance Directives Documents on File Type Date Recorded Patient Vegetable Cook Expl anation Health Care Decision (hx) 05/28/2022 AD RICE DIRECTIVE Health Care Decision (hx) 05/15/2022 AD RICE DIRECTIVE Health Care Decision (hx) 05/15/2022 AD RICE DIRECTIVE Health Care Decision (hx) 05/15/2022 AD RICE DIRECTIVE Health Care Decision (hx) 05/15/2022 AD RICE DIRECTIVE Health Care Decision (hx) 05/15/2022 AD RICE DIRECTIVE Health Care Decision (hx) 05/15/2022 AD RICE DIRECTIVE Health Care Decision (hx) 05/15/2022 AD RICE DIRECTIVE
== END 2025-01-28 11:48 | disposition home or self-care (01) ==
LOC: HO.HSM 11:18
PROVIDERS: PCP Family Medicine; Visit Provider Psychiatry & Neurology Neurology
DX: G40.209 Localization-related (focal) (partial) symptomatic epilepsy and epileptic syndromes with complex partial seizures, not intractable, without status epilepticus (principal); G30.1 Alzheimer's disease with late onset; F02.B4 Dementia in other diseases classified elsewhere, moderate, with anxiety
CPT/HCPCS: 99214

== ENCOUNTER → 2025-01-28 11:17 | Outpatient (BNVA) | payer OTHER, SELFPAY | PROVIDERS: PCP Family Medicine; Visit Provider Psychiatry & Neurology Neurology | DX: G30.1 Alzheimer's disease with late onset (principal); G40.209 Localization-related (focal) (partial) symptomatic epilepsy and epileptic syndromes with complex partial seizures, not intractable, without status epilepticus; F02.B4 Dementia in other diseases classified elsewhere, moderate, with anxiety | CPT/HCPCS: 99212 ==

== ENCOUNTER 2025-01-31 09:54 | Outpatient (REF) | payer OTHER, SELFPAY ==
--- NOTE | ~2025-01-31 | MR_ITS ---
CLINICAL HISTORY: M47.816 - Spondylosis without myelopathy or radiculopathy, lumbar region --- Additional Notes or Special Instructions: Patient could not tolerate MRI at [facility]. The MRI machine could not hold his weight. THE IMAGES WERE OBTAIN LESS THAN SUBSTANTIAL. MRI lumbar spine without contrast Comparison: None provided Findings: L5-S1 facet hypertrophy without canal stenosis. Left neural foraminal narrowing noted. L4-5 facet hypertrophy and central osteophyte. No canal stenosis or neural foraminal narrowing. L3-4 facet hypertrophy without canal stenosis. Remaining levels demonstrate no significant disc disease. No acute bony signal abnormalities noted. Posterior bony alignment is normal. Incidental small renal cysts. Impression: Left L5-S1 neural foraminal narrowing Otherwise unremarkable This document has been electronically signed by: Eder Soto MD on 02/03/2025 22:17:43
--- OUTSIDE RECORDS SUMMARY | 2025-01-31 09:56 | XMS_ITS | Clinical Summary ---
Author Organization [email or web address] it Address [address] [place] [address] Care Team Providers Care Hand Bookbinder Name Role Phone Unavailable Primary Care Provider Unavailabl e Surgical History Surgery Date Site/Laterality Comments LAPAROSCOPIC GASTRIC BANDING PROCEDURE: LAP ADJUSTABLE GASTRIC BAND; COMMENT: at [facility] - removed 01/14/16 - Dr Sanches HERNIA REPAIR PROCEDURE: HISTORICAL HERNIA REPAIR/ING; COMMENT: times 2 COLONOSCOPY 10/01/2011 PROCEDURE: HISTORICAL COLONOSCOPY; COMMENT: Jennyfer Jimmy; Dim Tubular adenomas x 2. COLONOSCOPY 2006 PROCEDURE: HISTORICAL COLONOSCOPY; COMMENT: date approx; one small polyp COLONOSCOPY 11/16/2014 PROCEDURE: HISTORICAL COLONOSCOPY; COMMENT: Sessile serrated adenoma. Repeat 5 yrs APPENDECTOMY PROCEDURE: HISTORICAL APPENDECTOMY OTHER SURGICAL HISTORY 03/03/2019 PROCEDURE: [place] TRURL ELECTROSURG RESCJ PROSTATE BLEED COMPLETE CHOLECYSTECTOMY [...] Severe obesity (BMI 35.0-39. 9) with comorbidity ([facility] V24, [facility] V28) 01/31/2015 DX:Severe obesi ty (BMI 35.0- 39.9) with comorbidity ([facility]); COMMENT: DIabetes, Hypertension, Hyperlipidemia, ANKIT, Osteoarthritis Family [...] Documents on File Type Date Recorded Patient Occup Ther Expl anation Health Care Decision (hx) 05/28/2022 [...]
--- OUTSIDE RECORDS SUMMARY | 2025-01-31 09:56 | XMS_ITS | Patient Health Record ---
Author Organization [facility] liance Address [address] [place] [address] Care Team Providers Care Knife Setter Grinder Machine Name Role Phone Lisandro Ashtyn Primary Care Provider Unavailab le Clinical, Operations Unavailable Unavailable Harleen Alexander Unavailable [phone] Jonatan Mervat Unavailable [phone] Allergies Allergen (clinical drug ingredient) Drug/Non Drug Allergy documented on EMR Reaction Allergy Type Onset Date Status Penicillin Unknown Drug Allergy Active Substance with sulfonamide structure and antibacterial mechanism of action (substance) Sulfa Antibiotics Unknown Drug Allergy Active Reason For Referral Reason Initial PCHM 13.5 ho urs per week (Auth: [id number]) Diagnosis 1 Debility (R53.81) Referring Provider First Name Operations Referring Provider Last Name Clinical Referring Provider Speciality Unknown Referred Provider [facility] Referred Provider Specialty Adult Foster Care General Notes This referral is jessi ng sent to supply the member's demographic information for Authorization # ([id number]) This is in addition to the Approval Letter that was sent from [facility]. If for any reason you are unable to accommodate this request, please call [facility] at [phone] Thank You. Referral Priority Routine Reason Initial PCHM 13.5 ho urs per week (Auth: [id number]) Diagnosis 1 Debility (R53.81) Referring Provider First Name Operations Referring Provider Last Name Clinical Referring Provider Speciality Unknown Referred Provider [facility] [employer] General Notes This referral is jessi ng sent to supply the member's demographic information for Authorization # ([id number]) This is in addition to the Approval Letter that was sent from [facility]. If for any reason you are unable to accommodate this request, please call [facility] at [phone] Thank You. Referral Priority Routine Medications Medication [...] UNIT/ML as directed Injection Sliding scale Unknown Yhlvbddrou-WTRM-Egnmg ine 50-325-40 MG 1 tablet as needed [...] Status W/U Status Risk Notes Problem Obesity (522398610) Obesity (E66.9) Active confirmed Problem Obstructive sleep apnea syndrome (32015453) ANKIT (obstructive sleep apnea) (G47.33) Active confirmed Problem Hypertension (30817168) HTN (hypertension) (I10) Active confirmed Problem Vertigo (355023496) Vertigo (R42) Active confirmed Problem Benign prostatic hyperplasia (746199646) BPH (benign prostatic hyperplasia) (N40.0) Active confirmed Problem DM - Diabetes mellitus (08355535) DM (diabetes mellitus) (E11.9) Active confirmed Problem 81051981 Other chronic pain (G89.29) Active confirmed Problem Mild major depression, single episode (71794427) Mild major depression, 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) Active confirmed Encounters Encounter Location Date Provider Diagnosis [facility] [address] [place] [address] 12/30/2024 Mervat Cheung Vertigo R42 ; Other chronic pain G89.29 and Low back pain, unspecified M54.[address] [address] 07/08/2024 Harleen Alexander [address] [address] 08/05/2024 Harleen Alexander [address] [place] [address] 08/05/2024 Harleen Alexander [facility] [address] [place] [address] 10/05/2024 Operations Clinical [facility] [address] [place] [address] 12/02/2024 Operations Clinical Assessments Encounter Date Diagnosis (ICD Code) Assessment [...] meet clinical eligibility requirements for PLR per [id number] and a recommendation to deny is being [...] meet clinical eligibility requirements for PLR per [id number] and a recommendation to deny is being [...] meet clinical eligibility requirements for PLR per [id number] and a recommendation to deny is being [...] Insured Coverage Start Date Coverage End Date [facility] SCO ([id number]) [address] [phone] [id number] Rodolfo Azul Self - patient is the insured 3 9 Medical (General) History Medical History History ICD Code 2019 - cataract surgery 2021 - broken right leg
== END 2025-01-31 09:55 | disposition home or self-care (01) ==
LOC: HO.MRI 09:54
PROVIDERS: Visit Provider Anesthesiology
DX: M47.816 Spondylosis without myelopathy or radiculopathy, lumbar region (principal)
CPT/HCPCS: 72148

== ENCOUNTER → 2025-01-31 10:05 | Outpatient (BNV) | payer OTHER, SELFPAY | PROVIDERS: Visit Provider Radiology Diagnostic Radiology | DX: M48.061 Spinal stenosis, lumbar region without neurogenic claudication (principal) | CPT/HCPCS: 72148 ==

== ENCOUNTER 2025-02-10 11:50 | Outpatient (AMB) | payer OTHER, SELFPAY ==
[2025-02-10 12:16] VITALS: PULSE 74; RESP 18; O2SAT 98
--- NOTE | 2025-02-10 12:16 | A.OFFVIS_ITS ---
Vital Signs 02/10/25 12:16 Respiration 18 Pulse 74 Pulse Source Pulse Oximeter Pulse Oximetry (%) 98 Oxygen Delivery Method Room Air Intake Visit Reasons: review MRI Chief Medical Physicist Required: No Allergies Penicillins Allergy (Unknown, Verified 01/14/25 13:54) Swelling Sulfa (Sulfonamide Antibiotics) Allergy (Unknown, Verified 01/14/25 13:54) Swelling HPI Comments Details: Rodolfo is back in my office after he thought a 2nd opinion in [facility]. He went there and he was seen by Dr.Andrey Peguero, he received some injections which patient called intradiscal injections however unfortunately it is not known to the patient what injections he actually received. We still did not receive anything from [facility], I requested him to sign medical information release note and we will request again the nature of the injections from this organization. He went for the MRI of the lumbar spine results of the MRI dictated as below. For his age his MRI remarkably not very prominent. There are of course some facet joint changes. I offered him diagnostic medial branch block L3, L4, L5 bilateral trying to alleviate the pain in the lower back. Sprint PNS could be tried on this patient in the future if diagnostic medial branch block would be effective to control his pain. Prior: diagnostic cluneal nerve block on the left. The patient reported today that he came home after the injection and went to bed, he did not perform most painful maneuvers which would aggravate her pain, he reported that the pain before the procedure was 4/10, the pain after the procedure was 0/10 however patient said that he was under anesthesia and he did not remember how it felt. 1 hour after the procedure the patient was again 0/10 with all limitations described above. 2 hours after the procedure 3 hours after the procedure and 4 hours after the procedure the patient's pain was 3/10, it is hard to assess what happened after that because patient was resting and not performing aggravating maneuvers and motions. The patient wants to go for 2nd opinion in [facility] he reports that there he will go for appointment with neurosurgeon as well as for the appointment with pain management physician. 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 The MRI is scheduled on February 17. Results of diagnostic sacroiliac joint injection: He reports no pain relief af ter the procedure. Before that he had diagnostic medial branch block which also did not help him much. He fell asleep after the procedure and the results therefore were inconclusive. He reports that he had MRI lumbar spine 5 years ago. I decided to send him for the MRI of the lumbar spine to reassess his lumbar spine conditions. Prior: very pleasant 77 years old gentleman who presents in my office with complains on pain in the lower back more to the left side. He reported the pain started approximately 3 years ago. He denies inciting events. He reports that standing hurts more than sitting sitting and laying down he experiences no pain. He reports that he can not do daily activities because of his pain, he can not take care of himself but he can not function normally. He had physical therapy April 2023 he had 12 sessions unfortunately it did not help his pain. [facility] Medical History (Updated 01/28/25 @ 11:44 by José Gamble MD) Hyperlipidemia Hypertension Alzheimer disease Complex partial seizure disorder Seizure disorder Low back pain BPV (benign positional vertigo) ANKIT (obstructive sleep apnea) Depression Obesity Diabetes Surgical History Hx of laparoscopic gastric banding Hx of cholecystectomy Family History (Updated 01/28/25 @ 10:29 by Kashif Ruby MA) Father Heart disease Mother Breast cancer Social History Household Members: None Housing: Apartment Do you presently have visiting nurse or other home services: No Alcohol intake: never Patient Tobacco Use Status: Never used Tobacco service: No Review of Systems Const All systems reviewed & are unremarkable except as noted in HPI and below ENT Reports Normal hearing present Neuro Reports Normal hearing present, Denies Abnormal speech present, Denies confusion and Denies Sensory deficit (Neuro) Psych Denies confusion Physical Exam Vital Signs: Last Vital Signs Pulse 74 02/10/25 12:16 Resp 18 02/10/25 12:16 Pulse Ox 98 02/10/25 12:16 Oxygen Delivery Method Room Air 02/10/25 12:16 Const General: No confusion Nutritional Appearance: obese morbidly obese Orientation/consciousness: No confusion Eyes General: appearance normal, both eyes and all related structures Pupils: Equal, round and reactive pupils present EOM: EOMs intact bilaterally Neck Neck: Yes full ROM Chest Chest palpation & inspection: normal inspection of the chest Resp Effort & Inspection: normal respiratory effort, able to speak in complete sentences, normal respiratory pattern, no audible wheezes and no cough Cardio Jugular venous distension: no JVD GI Inspection: Yes normal to inspection Back/Spine/Pelvis Other: Able to stand on bilateral tiptoes in bilateral heels without difficulty. Able to lift great toe in separation of the rest of the toes. Denies numbness and weakness on bilateral lower extremities. Denies Valsalva maneuver aggravating his pain. Denies pelvic organ dysfunction. SLR is negative for pain increase.Lassegue test is negative for pain increase. Jordan test is negative for pain increase. Minimal tenderness on palpation in paraspinal spinal region lumbar spine this time, loading test is positive bilaterally this time. Neuro General: No confusion Cranial nerves: Yes Equal, round and reactive pupils present and Yes Normal h earing present Speech: No Abnormal speech present Gait exam (Neuro): Normal gait present Motor exam (neuro): 5/5 motor strength present throughout Sensory Exam: No Sensory deficit (Neuro) Extrem General: No pedal edema Psych Speech and movement: Normal speech and movement present Affect: normal affect Attitude: cooperative Thought process: Normal thought process present Thought content: Normal thought content present Insight: Good insight present (Psych) Judgement: Good judgement present (Psych) Results Reviewed Results Reviewed: MRI lumbar spine: 01/31/2025. Findings: L5-S1 facet hypertrophy without canal stenosis. Left neural foraminal narrowing noted. L4-5 facet hypertrophy and central osteophyte No canal stenosis or neural foraminal narrowing. L3-L4 facet hypertrophy without canal stenosis Remaining levels demonstrate no significant disc disease. No acute bony signal abnormalities noted. Posterior bony alignment is normal. Incidental small renal cyst. Impression left L5-S1 neural foraminal narrowing. Assessment & Plan Assessment & Plan (1) Spondylosis of lumbar region without myelopathy or radiculopathy: Code(s): M47.816 - Spondylosis without myelopathy or radiculopathy, lumbar region Category: Medical Plan There is no significant disc changes reported on the MRI however patient is firmly convinced that he received intradiscal injection back in [facility]. We will request the nature of the procedures from the he clinic again. I will schedule this patient for diagnostic bilateral medial branch block trying to localize his pain source. If this procedure will be successful I will schedule him for sprint PNS. Coding Level of Care Code Est Pt Level 3 (61235) Diagnoses Spondylosis of lumbar region without myelopathy or radiculopathy M47.816
--- OUTSIDE RECORDS SUMMARY | 2025-02-10 12:38 | XMS_ITS | Clinical Summary ---
Author Organization [facility] it Address [address] [place] [address] Care Team Providers Care School Treasurer Name Role Phone Unavailable Primary Care Provider Unavailabl e Surgical History Surgery Date Site/Laterality Comments LAPAROSCOPIC GASTRIC BANDING PROCEDURE: LAP ADJUSTABLE GASTRIC BAND; COMMENT: at [facility] - removed 01/14/16 - Dr Sanches [...] Severe obesity (BMI 35.0-39. 9) with comorbidity ([facility] V24, [facility] V28) 01/31/2015 DX:Severe obesi ty [...] series) 2021 Cholesterol Screening (Lipid Panel) 06/30/2022 Falls Risk Assessment 06/30/2022 Hepatitis C Screening 06/30/2022 Social Influencers of Health Screening 06/30/2022 Diabetes: Annual Urine Albumin-Creatinine Ratio (uACR) 07/04/2022 Diabetes: Blood Sugar Control Test (HGBA1C) 07/04/2022 Hypertension/CHF/CAD Annual BMP Blood Test 07/04/2022 DTaP,Tdap,and Td Vaccines (2 - Td or Tdap) 12/24/2022 12/24/2012 COVID-19 Vaccine ( season) 2024 05/02/2021, 09/25/2020, 09/04/2020 Depression Screening 07/22/2024 Influenza Vaccine (#1) 2025 , 07/11/2018, 04/27/2015, [...] Documents on File Type Date Recorded Patient Lease Picker Expl anation Health Care Decision (hx) 05/28/2022 [...]
--- OUTSIDE RECORDS SUMMARY | 2025-02-10 12:38 | XMS_ITS | Patient Health Record ---
Author Organization [facility] liance Address [address] [place] [address] Care Team Providers Care Retail Branch Manager Name Role Phone Lisandro Ashtyn Primary Care Provider Unavailab le Clinical, Operations Unavailable Unavailable Harleen Alexander Unavailable [phone] Jonatan Mervat Unavailable [phone] Allergies Allergen (clinical drug ingredient) Drug/Non Drug Allergy documented on EMR Reaction Allergy Type Onset Date Status Penicillin Unknown Drug Allergy Active Substance with sulfonamide structure and antibacterial mechanism of action (substance) Sulfa Antibiotics Unknown Drug Allergy Active Reason For Referral Reason Initial PCHM 13.5 ho urs per week (Auth: [id number]) Diagnosis 1 Debility (R53.81) Referring Provider First Name Operations Referring Provider Last Name Clinical Referring Provider Speciality Unknown Referred Provider [facility] Referred Provider Specialty Adult Foster Care General Notes This referral is jessi ng sent to supply the member's demographic information for Authorization # ([id number]) This is in addition to the Approval Letter that was sent from [facility]. If for any reason you are unable to accommodate this request, please call [facility] at [phone] Thank You. Referral Priority Routine Reason Initial PCHM 13.5 ho urs per week (Auth: [id number]) Diagnosis 1 Debility (R53.81) Referring Provider First Name Operations Referring Provider Last Name Clinical Referring Provider Speciality Unknown Referred Provider [facility] [employer] General Notes This referral is jessi ng sent to supply the member's demographic information for Authorization # ([id number]) This is in addition to the Approval Letter that was sent from [facility]. If for any reason you are unable to accommodate this request, please call [facility] at [phone] Thank You. Referral Priority Routine Medications Medication [...] UNIT/ML as directed Injection Sliding scale Unknown Wdxijrjwhi-SANZ-Pseog ine 50-325-40 MG 1 tablet as needed [...] Status W/U Status Risk Notes Problem Obesity (909121320) Obesity (E66.9) Active confirmed Problem Obstructive sleep apnea syndrome (56330791) ANKIT (obstructive sleep apnea) (G47.33) Active confirmed Problem Hypertension (40539257) HTN (hypertension) (I10) Active confirmed Problem Vertigo (286601060) Vertigo (R42) Active confirmed Problem Benign prostatic hyperplasia (807888617) BPH (benign prostatic hyperplasia) (N40.0) Active confirmed Problem DM - Diabetes mellitus (61827799) DM (diabetes mellitus) (E11.9) Active confirmed Problem 43011847 Other chronic pain (G89.29) Active confirmed Problem Mild major depression, single episode (65836199) Mild major depression, 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) Active confirmed Encounters Encounter Location Date Provider Diagnosis [facility] [address] [place] [address] 12/30/2024 Mervat Cheung Vertigo R42 ; Other chronic pain G89.29 and Low back pain, unspecified M54.[address] [address] 07/08/2024 Harleen Alexander [address] [address] 08/05/2024 Harleen Alexander [address] [place] [address] 08/05/2024 Harleen Alexander [facility] [address] [place] [id number] 10/05/2024 Operations Clinical [facility] [address] [place] [address] 12/02/2024 Operations Clinical Assessments Encounter Date Diagnosis [...] meet clinical eligibility requirements for PLR per [id number] and a recommendation to deny is being [...] meet clinical eligibility requirements for PLR per PRO494 and a recommendation to deny is being [...] meet clinical eligibility requirements for PLR per [id number] and a recommendation to deny is being [...] Start Date Coverage End Date [facility] SCO ([id number]) [address] [address] [id number] Rodolfo Azul Self - patient is the insured 3 9 Medical (General) History Medical History History ICD Code 2019 - cataract surgery 2021 - broken right leg
== END 2025-02-10 12:43 | disposition home or self-care (01) ==
PROVIDERS: Visit Provider Anesthesiology
DX: M47.816 Spondylosis without myelopathy or radiculopathy, lumbar region (principal)
CPT/HCPCS: 99213

== ENCOUNTER → 2025-02-10 11:50 | Outpatient (BNVA) | payer OTHER, SELFPAY | PROVIDERS: Visit Provider Anesthesiology | DX: M47.816 Spondylosis without myelopathy or radiculopathy, lumbar region (principal) | CPT/HCPCS: 99212 ==

== ENCOUNTER 2025-03-29 10:02 | Outpatient (AMB) | payer OTHER, SELFPAY ==
[2025-03-29 10:04] VITALS: BP 116/60; PULSE 69; O2SAT 96; BMI 41.0
--- NOTE | 2025-03-29 10:04 | MHC.OFFVIS ---
Vital Signs 03/29/25 10:04 Height 5 ft 8 in Weight 270 lb BMI 41.0 BP 116/60 Blood Pressure Location Lt brachial Position Sitting Pulse 69 Pulse Source Pulse Oximeter Pulse Oximetry (%) 96 Oxygen Delivery Method Room Air Intake Visit Reasons: T2DM Intake Note: New patient present today for Type 2 Diabetes Mellitus Last Diabetic eye exam: Patient had test done 03/2024 and has upcoming appt Last Podiatry Visit: Doesn't have one Random Glucose: 117 mg/dl HgA1C: 7.0% Leather Drier Required: No Accompanied by: Self / Same As Patient Allergies Penicillins Allergy (Unknown, Verified 03/29/25 10:09) Swelling Sulfa (Sulfonamide Antibiotics) Allergy (Unknown, Verified 03/29/25 10:09) Swelling Medication List - Last Reconciled 03/29/25 by Tiffani Pitts PA-C acetaminophen 500 mg PO Q6H PRN amlodipine 10 mg PO DAILY aspirin 1 tab PO DAILY atorvastatin 1 tab PO DAILY clotrimazole-betamethasone 1-0.05 % 1 appl topical BID PRN diclofenac sodium 75 mg PO BID docusate sodium 200 mg PO DAILY donepezil 10 mg PO BEDTIME empagliflozin (Jardiance) 10 mg PO DAILY insulin glargine U-300 conc (Toujeo SoloStar U-300 Insulin) 60 units subcut BEDTIME insulin lispro (Humalog U-100 Insulin) 1 sliding scale dose subcut TIDAC lactulose 15 mL PO DAILY levetiracetam 500 mg PO BID metformin 2 tabs PO BID metoprolol succinate ER 100 mg PO BID sennosides (senna) 17.2 mg PO DAILY PRN sertraline 50 mg PO DAILY tirzepatide (Mounjaro) 15 mg subcut TU@0900 HPI HPI T2DM: Details: Patient is a 79-year-old male with a significant past medical history of Alzheimer's disease, seizure disorder , hyperlipidemia, hypertension, insulin-dependent type 2 diabetes presenting today for a diabetic consultation. Endo: He did come to this appointment today by himself. He says that he was diagnosed with diabetes around 2019. His most recent A1c is 7. He is currently on metformin 1000 mg, Mounjaro 15 mg weekly, Jardiance 10 mg daily, Toujeo and Humalog sliding scale -he does not know his sliding scale but has a chart at home which she will bring to his next appointment. He was previoulsy following with Dr. Obando from [facility] x 5 years. He was last seen by his endo in October 2024. He states that he was primarily managed by the [facility] but due to insurance changes he has to come locally. Hypoglycemia- states he rarely experiences hypoglycemia but we will treat this with food. States that he understands how to treat low blood sugars and has candy if needed. Hyperglycemia- rare, states he is usually less than 200 post prandial CGM- mercedes 3+ but did not bring his reader. He states that he is always in the green. CV: Blood pressure today in the office is 116/60. He is currently on amlodipine 10 mg daily, metoprolol 100 mg. Cholesterol is managed with atorvastatin 40 mg daily. [facility] Medical History (Updated 03/29/25 @ 10:13 by Tiffani Pitts PA-C) Hyperlipidemia Hypertension Alzheimer disease Complex partial seizure disorder Seizure disorder Low back pain BPV (benign positional vertigo) ANKIT (obstructive sleep apnea) Depression Obesity Diabetes Surgical History Hx of laparoscopic gastric banding Hx of cholecystectomy Family History Father Heart disease Mother Breast cancer Social History Household Members: None Housing: Apartment Do you presently have visiting nurse or other home services: No Alcohol intake: never Patient Tobacco Use Status: Never used Tobacco service: No Physical Exam Vital Signs: Last Vital Signs Pulse 69 03/29/25 10:04 BP 116/60 03/29/25 10:04 Pulse Ox 96 03/29/25 10:04 Oxygen Delivery Method Room Air 03/29/25 10:04 BMI result Body Mass Index 41.0 Const Orientation/consciousness: patient oriented x3 Neck Neck: Yes no lymphadenopathy Thyroid: Thyroid normal Carotids: no bruits Resp Auscultation: clear to auscultation bilaterally Cardio Rate: regular rate Rhythm: regular rhythm Heart sounds: S1 normal heart sound present and S2 normal heart sound present Peripheral pulses: dorsalis pedis present Neuro General: patient oriented x3, gait normal and no focal motor deficits Extrem Other: Monofilament sensation intact bilaterally. Vibratory sensation intact bilaterally. Skin intact. General: Yes normal to inspection Results AMB Hemoglobin A1c AMB Hemoglobin A1c 7.0 % Last Edit by MARIO Castillo on 03/29/25 10:24 Results Reviewed Results Reviewed: Laboratory Last Values Glucose (Clinic) 117 mg/dL (60-115) H 03/29/25 10:11 Hgb A1c (Clinic) 7.0 % (4.0-6.0) H 03/29/25 10:14 Laboratory Tests 08/01/24 08/02/24 14:01 06:07 Estimated GFR > 60 Random Glucose 123 H Hemoglobin A1c % 6.4 H Assessment & Plan Assessment & Plan (1) Controlled type 2 diabetes mellitus with insulin therapy: Code(s): E11.9 - Type 2 diabetes mellitus without complications; Z79.4 - terminal system operator (current) use of insulin Category: Medical Plan: Continue current regimen He will bring his reader to the next appointment Declines additional diabetic Education today Reviewed rule of 15 at length. Discussed signs and symptoms of hyper and hypoglycemia that would require emergent medical treatment. I have sent prescriptions to the pharmacy Declines backup testing supplies and states that he has many at home (2) Hypertension: Code(s): I10 - Essential (primary) hypertension Category: Medical Plan: WNL. Continue current regimen (3) Hyperlipidemia: Code(s): E78.5 - Hyperlipidemia, unspecified Category: Medical Plan: We will check lipids and LFTs. Continue atorvastatin Orders: Orders Hemoglobin A1c Today E11.9 - Type 2 diabetes mellitus without complications, E78.5 - Hyperlipidemia, unspecified, I10 - Essential (primary) hypertension, R73.01 - Impaired fasting glucose, Z79.4 - detention (current) use of insulin Lipid Panel Today E11.9 - Type 2 diabetes mellitus without complications, E78.5 - Hyperlipidemia, unspecified, I10 - Essential (primary) hypertension, Z79.4 - detention (current) use of insulin AMB Hemoglobin A1c Today E11.9 - Type 2 diabetes mellitus without complications, Z13.9 - Encounter for screening, unspecified, Z79.4 - terminal system operator (current) use of insulin Comprehensive Met. Panel Today E11.9 - Type 2 diabetes mellitus without complications, E78.5 - Hyperlipidemia, unspecified, I10 - Essential (primary) hypertension, Z79.4 - terminal system operator (current) use of insulin Microalbumin, Random (w Creat) Today E11.9 - Type 2 diabetes mellitus without complications, E78.5 - Hyperlipidemia, unspecified, I10 - Essential (primary) hypertension, Z79.4 - terminal system operator (current) use of insulin Medications: New blood-glucose sensor (FreeStyle Mercedes 3 Plus Sensor device) Use daily As directed to monitor glucose 6 ea 3RF E08.29 - Diabetes mellitus due to underlying condition with other diabetic kidney complication, R80.9 - Proteinuria, unspecified, Z79.4 - detention (current) use of insulin tirzepatide (Mounjaro) 15 mg (0.5 mL) subcut TU@0900 6 mL 3RF empagliflozin (Jardiance) 10 mg PO DAILY 90 tabs 0RF blood-glucose sensor (FreeStyle Mercedes 3 Plus Sensor device) Use daily As directed to monitor glucose 6 ea 3RF E08.29 - 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
[2025-03-29 10:16] LABS: Glucose, Whole Blood 117 mg/dL (60-115)
--- OUTSIDE RECORDS SUMMARY | 2025-03-29 11:49 | XMS_ITS | Patient Health Record ---
Author Organization [facility] lianc Address [address] [place] [address] Care Team Providers Care Wheel Filler Name Role Phone Lisandro Ashtyn Primary Care Provider Unavailab le Clinical, Operations Unavailable Unavailable Harleen Alexander Unavailable [phone] Mervat Cheung Unavailable [phone] Allergies Allergen (clinical drug ingredient) Drug/Non Drug Allergy documented on EMR Reaction Allergy Type Onset Date Status Penicillin Unknown Drug Allergy Active Substance with sulfonamide structure and antibacterial mechanism of action (substance) Sulfa Antibiotics Unknown Drug Allergy Active Reason For Referral Reason Initial PCHM 13.5 ho urs per week (Auth: [id number]) Diagnosis 1 Debility (R53.81) Referring Provider First Name Operations Referring Provider Last Name Clinical Referring Provider Speciality Unknown Referred Provider [facility] Referred Provider Specialty Adult Foster Care General Notes This referral is jessi ng sent to supply the member's demographic information for Authorization # ([id number]) This is in addition to the Approval Letter that was sent from [facility]. If for any reason you are unable to accommodate this request, please call [facility] at [phone] Thank You. Referral Priority Routine Reason Initial PCHM 13.5 ho urs per week (Auth: [id number]) Diagnosis 1 Debility (R53.81) Referring Provider First Name Operations Referring Provider Last Name Clinical Referring Provider Speciality Unknown Referred Provider [facility] General Notes This referral is jessi ng sent to supply the member's demographic information for Authorization # ([id number]) This is in addition to the Approval Letter that was sent from [facility]. If for any reason you are unable to accommodate this request, please call [facility] at [phone] Thank You. Referral Priority Routine Medications Medication [...] UNIT/ML as directed Injection Sliding scale Unknown Gebxpkovmv-BCBF-Rggfe ine 50-325-40 MG 1 tablet as needed [...] Vaccine Route Administration Date Status Comme nts Zoster Vac (Shingrix) Recombinant Unknown 01/18/2022 Ad ministered Td Vaccine, 7 Yrs or Older, SDV, IM Unknown 08/31/2021 Administered Pneumococcal Vac (Pneumovax 23) SDV / PFS, IM Unknown 08/31/2021 Administered Pfizer-BioDocLanding COVID-19 Vaccine IM Unknown 09/04/2020 Administered Pfizer-BioNTech COVID-19 Vaccine IM Unknown 09/25/2020 Administered Pfizer-BioNTech COVID-19 Vaccine IM Unknown 05/02/2021 Administered Pfizer-BioNTAquarisPLUS Int COVID-19 Vac cine 12+ IM Unknown 01/18/2022 Administered influenza, high-dose, quadrivalent Unknown 04/22/2023 A dministered Influenza, high dose seasonal Unknown 03/18/2024 Admini stered Flu Vac NOC (vac given elsewhere/pt. refuse/ CI) Unknown 04/21/2022 Administered Flu Vac (Fluad) QIV PFS Adjuvanted Unknown 04/27/2021 A dministered COVID-19 COMIRNATY Vaccine, Fall 2022, SARS-CoV-2 virus strain Omicron XBB.1.5 Unknown 04/22/2023 Administered COVID-19 COMIRNATY Vaccine, Fall 2022, SARS-CoV-2 virus strain Omicron XBB.1.5 Unknown 03/28/2024 Administered Problems Problem Type SNOMED Code ICD Code Onset Dates Problem Status W/U Status Risk Notes Problem Obesity (799706378) Obesity (E66.9) Active confirmed Problem Obstructive sleep apnea syndrome (47743540) ANKIT (obstructive sleep apnea) (G47.33) Active confirmed Problem Hypertension (61646566) HTN (hypertension) (I10) Active confirmed Problem Vertigo (056829938) Vertigo (R42) Active confirmed Problem Benign prostatic hyperplasia (136243459) BPH (benign prostatic hyperplasia) (N40.0) Active confirmed Problem DM - Diabetes mellitus (93470888) DM (diabetes mellitus) (E11.9) Active confirmed Problem Chronic pain (50024086) Other chronic pain (G89.29) Active confirmed Problem Mild major depression, single episode (95752934) Mild major depression, 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) Active confirmed Encounters Encounter Location Date Provider Diagnosis [facility] [address] [place] [address] 12/30/2024 Mervat Chualoulou Vertigo R42 ; Other chronic pain G89.29 and Low back pain, unspecified M54.[address] [address] 07/08/2024 Harleen Alexander [address] [address] 08/05/2024 Harleen Alexander [address] [place] [address] 08/05/2024 Harleen Alexander [facility] [address] [place] [address] 10/05/2024 Operations Clinical [facility] [address] [place] [address] 12/02/2024 Operations Clinical Assessments Encounter Date Diagnosis [...] meet clinical eligibility requirements for PLR per [id number] and a recommendation to deny is being [...] meet clinical eligibility requirements for PLR per [id number] and a recommendation to deny is being [...] meet clinical eligibility requirements for PLR per [id number] and a recommendation to deny is being [...] Insured Coverage Start Date Coverage End Date [facility] SCO ([id number]) [address] [facility] [address] [place] [address] [id number] [facility] Rodolfo bryson Self - patient is the insured 3 9 Medical (General) History Medical History History ICD Code 2019 - cataract surgery 2021 - broken right leg
--- OUTSIDE RECORDS SUMMARY | 2025-03-29 11:49 | XMS_ITS | Clinical Summary ---
Author Organization [facility] it Address [address] [place] [address] Care Team Providers Care Special Procedures Technologist Name Role Phone Unavailable Primary Care Provider Unavailabl e Surgical History Surgery Date Site/Laterality Comments LAPAROSCOPIC GASTRIC BANDING PROCEDURE: LAP ADJUSTABLE GASTRIC BAND; COMMENT: at [facility] - removed 01/14/16 - Dr Sanches HERNIA REPAIR PROCEDURE: HISTORICAL HERNIA REPAIR/ING; COMMENT: times 2 COLONOSCOPY 10/01/2011 PROCEDURE: HISTORICAL COLONOSCOPY; COMMENT: Jennyfer Jimmy; Dim Tubular adenomas x 2. COLONOSCOPY 2006 PROCEDURE: HISTORICAL COLONOSCOPY; COMMENT: date approx; one small polyp COLONOSCOPY 11/16/2014 PROCEDURE: HISTORICAL COLONOSCOPY; COMMENT: Sessile serrated adenoma. Repeat 5 yrs APPENDECTOMY PROCEDURE: HISTORICAL APPENDECTOMY OTHER SURGICAL HISTORY 03/03/2019 PROCEDURE: [place] TRURL ELECTROSURG RESCJ PROSTATE BLEED COMPLETE CHOLECYSTECTOMY [...] Severe obesity (BMI 35.0-39. 9) with comorbidity ([facility] V24, [facility] V28) 01/31/2015 DX:Severe obesi ty (BMI 35.0- 39.9) with comorbidity ([facility]); COMMENT: DIabetes, Hypertension, Hyperlipidemia, ANKIT, Osteoarthritis Family [...] (2 - Td or Tdap) 12/24/2022 12/24/2012 Depression Screening 07/22/2024 COVID-19 Vaccine ( season) 2025 05/02/2021, 09/25/2020, 09/04/2020 Influenza Vaccine (#1) 2025 [...] Documents on File Type Date Recorded Patient Piano Regulator Expl anation Health Care Decision (hx) 05/28/2022 [...]
== END 2025-03-29 10:34 | disposition home or self-care (01) ==
LOC: HO.ENCR 10:03
PROVIDERS: PCP Family Medicine; Visit Provider Physician Assistant
DX: E11.9 Type 2 diabetes mellitus without complications (principal); Z79.4 Long term (current) use of insulin; I10 Essential (primary) hypertension; E78.5 Hyperlipidemia, unspecified; Z13.9 Encounter for screening, unspecified

== ENCOUNTER → 2025-03-29 10:02 | Outpatient (BNVA) | payer OTHER, SELFPAY | PROVIDERS: PCP Family Medicine; Visit Provider Physician Assistant | DX: E11.649 Type 2 diabetes mellitus with hypoglycemia without coma (principal); E78.5 Hyperlipidemia, unspecified; G30.9 Alzheimer's disease, unspecified; F02.80 Dementia in other diseases classified elsewhere, unspecified severity, without behavioral disturbance, psychotic disturbance, mood disturbance, and anxiety; I10 Essential (primary) hypertension; Z79.84 Long term (current) use of oral hypoglycemic drugs | CPT/HCPCS: 82947; 83036; 99202 ==

== ENCOUNTER 2025-04-13 06:16 | Outpatient (REF) | payer OTHER, SELFPAY ==
--- NOTE | ~2025-04-13 | FL_ITS ---
EXAMINATION: FL GUIDANCE ONLY HISTORY: M47.816 - Spondylosis without myelopathy or radiculopathy, lumbar region COMPARISON: None available. TECHNIQUE: Fluoroscopy time: 1 minute, 24 seconds. Cumulative Dose: 24.9 mGy. DAP: 447.63 uGym2 Images: 12. FINDINGS: Fluoroscopic spot films of the lumbar spine in the AP projection demonstrate needles and contrast material in the regions of the bilateral L3-4, L4-5, and L5-S1 facet joints. FL/FL guidance in treatment room IMPRESSION: Fluoroscopy during procedure. Please see procedure report for additional information. Electronically signed by: Douglas Head MD 04/15/2025 07:23 AM EDT
--- OUTSIDE RECORDS SUMMARY | 2025-04-13 06:18 | XMS_ITS | Clinical Summary ---
Author Organization [facility] ity Address [address] [place] [address] Care Team Providers Care Boat Driver Name Role Phone Unavailable Primary Care Provider Unavailabl e Surgical History Surgery Date Site/Laterality Comments LAPAROSCOPIC GASTRIC BANDING PROCEDURE: LAP ADJUSTABLE GASTRIC BAND; COMMENT: at [facility] - removed 01/14/16 - Dr Sanches HERNIA REPAIR PROCEDURE: HISTORICAL HERNIA REPAIR/ING; COMMENT: times 2 COLONOSCOPY 10/01/2011 PROCEDURE: HISTORICAL COLONOSCOPY; COMMENT: Jennyfer Jimmy; Dim Tubular adenomas x 2. COLONOSCOPY 2006 PROCEDURE: HISTORICAL COLONOSCOPY; COMMENT: date approx; one small polyp COLONOSCOPY 11/16/2014 PROCEDURE: HISTORICAL COLONOSCOPY; COMMENT: Sessile serrated adenoma. Repeat 5 yrs APPENDECTOMY PROCEDURE: HISTORICAL APPENDECTOMY OTHER SURGICAL HISTORY 03/03/2019 PROCEDURE: [place] TRURL ELECTROSURG RESCJ PROSTATE BLEED COMPLETE CHOLECYSTECTOMY [...] Severe obesity (BMI 35.0-39. 9) with comorbidity ([facility] V24, [facility] V28) 01/31/2015 DX:Severe obesi ty (BMI 35.0- 39.9) with comorbidity ([facility]); COMMENT: DIabetes, Hypertension, Hyperlipidemia, ANKIT, Osteoarthritis [...] Documents on File Type Date Recorded Patient Spiral Winding Machine Helper Expl anation Health Care Decision (hx) 05/28/2022 [...]
--- OUTSIDE RECORDS SUMMARY | 2025-04-13 06:18 | XMS_ITS | Patient Health Record ---
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 Lisandro Ashtyn Primary Care Provider Unavailab le Clinical, Operations Unavailable Unavailable Harleen Alexander Unavailable [phone] EmmyMervat alvarado Unavailable [phone] Allergies Allergen (clinical drug ingredient) Drug/Non Drug Allergy documented on EMR Reaction Allergy Type Onset Date Status Penicillin Unknown Drug Allergy Active Substance with sulfonamide structure and antibacterial mechanism of action (substance) Sulfa Antibiotics Unknown Drug Allergy Active Reason For Referral Reason Initial PCHM 13.5 ho urs per week (Auth: [id number]) Diagnosis 1 Debility (R53.81) Referring Provider First Name Operations Referring Provider Last Name Clinical Referring Provider Speciality Unknown Referred Provider [employer] General Notes This referral is jessi ng sent to supply the member's demographic information for Authorization # ([id number]) This is in addition to the Approval Letter that was sent from [facility]. If for any reason you are unable to accommodate this request, please call [facility] at [phone] Thank You. Referral Priority Routine Medications Medication SIG (Take, Route, Frequency, Duration) Notes Start Date End Date Status Vitamin B-12 500 MCG 1 tablet Orally Once a day Not-Taking Pwijzrvbnc-EGGO-Hkawn ine 50-325-40 MG 1 tablet as needed Orally every 4 hrs No longer taking Not-Taking Acetaminophen Extra Strength 500 MG 2 tablets as needed Orally every 8 hrs Active Insulin Lispro 100 UNIT/ML as directed Injection Sliding scale Not-Taking amLODIPine Besylate 10 MG 1 tablet Orally Once a day Active Meclizine HCl 25 MG 1 tablet as needed Orally every 12 hrs Not-Taking Metoprolol Succinate ER 100 MG 1 tablet Orally Once a day Active Toujuan SoloStar 300 UNIT/ML 70 units Subcutaneous daily Active Senna 8.6 MG 1 tablet at bedtime as needed Orally twice per day Not-Taking Atorvastatin Calcium 40 MG 1 tablet Orally Once a day Active LORazepam 0.5 MG 1 tablet at bedtime as needed Orally Once a day No longer taking Not-Taking traZODone HCl 50 MG 1 tablet at bedtime as needed Orally Once a day @ HS PRN No longer taking Not-Taking Mounjaro 15 MG/0.5ML as directed Subcutaneous Active Clotrimazole 1 % 1 application Externally Twice a day Not-Taking Diclofenac Sodium 75 MG 1 tablet as needed Orally Twice a day Not-Taking Lactulose 10 GM/15ML 15 mL as needed Orally Once a day Not-Taking metFORMIN HCl 500 MG 2 tablets with a meals Orally twice a day Active Colace 100 MG 2 capsules Orally Once a day Not-Taking Aspirin Adult Low Dose 81 MG 1 tablet Orally Once a day Active Venlafaxine HCl ER 150 MG 1 capsule with food Orally Once a day Not-Taking Jardiance 10 MG 1 tablet Orally Once a day Active Immunizations Vaccine Route Administration Date Status [...] Status W/U Status Risk Notes Problem Obesity (902857772) Obesity (E66.9) Active confirmed Problem Obstructive sleep apnea syndrome (02983490) ANKIT (obstructive sleep apnea) (G47.33) Active confirmed Problem Hypertension (74386078) HTN (hypertension) (I10) Active confirmed Problem Vertigo (882562153) Vertigo (R42) Active confirmed Problem Benign prostatic hyperplasia (320755445) BPH (benign prostatic hyperplasia) (N40.0) Active confirmed Problem DM - Diabetes mellitus (66507701) DM (diabetes mellitus) (E11.9) Active confirmed Problem Chronic pain (25099128) Other chronic pain (G89.29) Active confirmed Problem Mild major depression, single episode (98661956) Mild major depression, 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) Active confirmed Vital Signs Height-cm 172.72 cm 04/06/2025 Weight-kg 122.47 kg 04/06/2025 Height 68 in 04/06/2025 Weight 270 lbs 04/06/2025 BMI 41.05 kg/m2 04/06/2025 Encounters Encounter Location Date Provider Diagnosis [address] [address] 07/08/2024 Harleen Alexander [address] [address] 08/05/2024 Harleen Alexander [address] [place] [address] 08/05/2024 Harleen Alexander [address] [address] 10/05/2024 Operations Clinical [address] [address] 12/02/[address] [address] 12/30/2024 Mervat Cheung Vertigo R42 ; Other chronic pain G89.29 and Low back pain, unspecified M54.50 [facility] [place] [address] 04/06/2025 Operations Clinical Other chronic pain G89.29 ; Mild major depression, single episode F32.0 ; ANKIT (obstructive sleep apnea) G47.33 ; Obesity E66.9 ; BPH (benign prostatic hyperplasia) N40.0 ; Vertigo R42 ; DM (diabetes mellitus) E11.9 and HTN (hypertension) I10 Assessments Encounter Date Diagnosis (ICD Code) Assessment [...] meet clinical eligibility requirements for PLR per [id number] and a recommendation to deny is being [...] meet clinical eligibility requirements for PLR per [id number] and a recommendation to deny is being [...] the process. Member agreed to this POC 04/06/2025 Other chronic pain (ICD-10 - G89.29) 04/06/2025 Mild major depression, single episode (ICD-10 - F32.0) 12/30/2024 Low back pain, unspecified (ICD-10 - [...] meet clinical eligibility requirements for PLR per [id number] and a recommendation to deny is being [...] the process. Member agreed to this POC 04/06/2025 ANKIT (obstructive sleep apnea) (ICD-10 - G47.33) 04/06/2025 Obesity (ICD-10 - E66.9) 04/06/2025 BPH (benign prostatic hyperplasia) (ICD-10 - N40.0) 04/06/2025 Vertigo (ICD-10 - R42) 04/06/2025 DM (diabetes mellitus) (ICD-10 - E11.9) 04/06/2025 HTN (hypertension) (ICD-10 - I10) Plan Of Treatment No Information Insurance Providers Payer Name Payer Address Payer Phone Subscriber Number Group Number Insured Name Patient Relationship to Insured Coverage Start Date Coverage End Date [facility] SCO ([id number]) [address] [facility] [address] [place] [address] [id number] Rodolfo Azul Self - patient is the insured 3 9 Medical (General) History Medical History History ICD Code 2019 - cataract surgery 2021 - broken right leg
== END 2025-04-13 06:17 | disposition home or self-care (01) ==
LOC: CF 06:16
PROVIDERS: Visit Provider Anesthesiology
DX: M47.816 Spondylosis without myelopathy or radiculopathy, lumbar region (principal)
CPT/HCPCS: 64493; 64494; J2003; J2795; Q9967

== ENCOUNTER 2025-04-13 13:28 | Outpatient (AMB) | payer OTHER, SELFPAY ==
--- NOTE | 2025-04-13 13:36 | MHC.OFFVIS ---
Vital Signs 04/13/25 13:38 Weight 270 lb BP 128/67 Blood Pressure Location Lt brachial Position Sitting Respiration 18 Pulse 73 Pulse Source Pulse Oximeter Pulse Oximetry (%) 94 Oxygen Delivery Method Room Air Intake Visit Reasons: Bilateral Diagnostic L3-L4-DR L5 MBB Customer Service Security Officer Required: Yes Customer Service Security Officer Name: SON Allergies Penicillins Allergy (Unknown, Verified 03/29/25 10:09) Swelling Sulfa (Sulfonamide Antibiotics) Allergy (Unknown, Verified 03/29/25 10:09) Swelling PFSH Medical History (Updated 03/29/25 @ 10:13 by Tiffani Pitts PA-C) Hyperlipidemia Hypertension Alzheimer disease Complex partial seizure disorder Seizure disorder Low back pain BPV (benign positional vertigo) ANKIT (obstructive sleep apnea) Depression Obesity Diabetes Surgical History Hx of laparoscopic gastric banding Hx of cholecystectomy Family History Father Heart disease Mother Breast cancer Social History Household Members: None Housing: Apartment Do you presently have visiting nurse or other home services: No Alcohol intake: never Patient Tobacco Use Status: Never used Tobacco service: No Physical Exam Vital Signs: Last Vital Signs Pulse 73 04/13/25 13:38 Resp 18 04/13/25 13:38 BP 128/67 04/13/25 13:38 Pulse Ox 94 04/13/25 13:38 Oxygen Delivery Method Room Air 04/13/25 13:38 Assessment & Plan Assessment & Plan (1) Spondylosis of lumbar region without myelopathy or radiculopathy: Code(s): M47.816 - Spondylosis without myelopathy or radiculopathy, lumbar region Category: Medical Plan Diagnostic medial branch block L3,L4 dorsal ramus L5 bilateral.? ? ?Informed consent was explained to the patient. All questions were explained and? answered.? The patient was taken inside the operating room where he was positioned prone on the operating table. Time-out was performed delineating correct site, side, the nature of the procedure, patient's allergy, . All operating room staff was participating in OR time-out procedure. ? ? The lower back was prepped with ChloraPrep and draped with sterile utility towels.? C-arm was brought over the operating field and sq picture of L4-, L5 vertebra and S1 AREA were delineated on the screen.? Point of interest were delineated as confluence of superior articular process of L4 and L5 vertebra bilaterally with corresponding transverse processes as well as confluence of the sacral alae bilaterally with superior articular process of S1.? The projection of the point of interest to the skin were injected with the small amount of local anesthetic lidocaine 2% mixed with ropivacaine 0.5% 1-1 approximately 1 cc.? After that 22 gauge 5 inch spinal needle was driven sequentially to the points of interest in tunnel vision fashion. After needles gently contacted the bone at the point of interests the needle was injected with small amount of the contrast.? The injection of the contrast did not demonstrate any intravascular or intrathecal spread of the contrast.? After that injection of the? ropivacaine 0.5%-1cc was performed at each needle location.?After that the needles were removed and Bandaids were applied. Orders: Orders FL guidance in treatment room Today M47.816 - Spondylosis without myelopathy or radiculopathy, lumbar region Coding Level of Care Code Procedure Only Diagnoses Spondylosis of lumbar region without myelopathy or radiculopathy M47.816
[2025-04-13 13:38] VITALS: BP 128/67; PULSE 73; RESP 18; O2SAT 94
--- OUTSIDE RECORDS SUMMARY | 2025-04-13 16:32 | XMS_ITS | Clinical Summary ---
Author Organization Marie [employer] [facility] ity Address [address] [place] [address] Care Team Providers Care Courtesy Driver Name Role Phone Unavailable Primary Care Provider Unavailabl e Surgical History Surgery Date Site/Laterality Comments LAPAROSCOPIC GASTRIC BANDING PROCEDURE: LAP ADJUSTABLE GASTRIC BAND; COMMENT: at [facility] - removed 01/14/16 - Dr Sanches HERNIA REPAIR PROCEDURE: HISTORICAL HERNIA REPAIR/ING; COMMENT: times 2 COLONOSCOPY 10/01/2011 PROCEDURE: HISTORICAL COLONOSCOPY; COMMENT: Jennyfer Jimmy; Dim Tubular adenomas x 2. COLONOSCOPY 2006 PROCEDURE: HISTORICAL COLONOSCOPY; COMMENT: date approx; one small polyp COLONOSCOPY 11/16/2014 PROCEDURE: HISTORICAL COLONOSCOPY; COMMENT: Sessile serrated adenoma. Repeat 5 yrs APPENDECTOMY PROCEDURE: HISTORICAL APPENDECTOMY OTHER SURGICAL HISTORY 03/03/2019 PROCEDURE: [place] TRURL ELECTROSURG RESCJ PROSTATE BLEED COMPLETE CHOLECYSTECTOMY [...] Severe obesity (BMI 35.0-39. 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
== END 2025-04-13 14:02 | disposition home or self-care (01) ==
LOC: HO.PMCPRC 13:28
PROVIDERS: PCP Family Medicine; Visit Provider Anesthesiology
DX: M47.816 Spondylosis without myelopathy or radiculopathy, lumbar region (principal)
CPT/HCPCS: 64493; 64494

== ENCOUNTER 2025-04-15 09:41 | Outpatient (REF) | payer OTHER, SELFPAY ==
[2025-04-15 10:48] LABS: Total Hemoglobin (HGBA1C) 3851.7457 umol/L
[2025-04-15 11:31] LABS: Alanine Aminotransferase 43 U/L (0-40); Albumin Level 4.3 g/dL (3.5-5.0); Alkaline Phosphatase 89 U/L (39-117); Anion Gap 12 (12-20); Aspartate Amino Transferase 39 U/L (5-37); Blood Urea Nitrogen 7 mg/dL (9-16); Calcium 9.4 mg/dL (8.4-10.2); Carbon Dioxide 27 mmol/L (22-29); Chloride 104 mmol/L (96-108); Cholesterol 114 mg/dL (<200); Estimated Glomerular Filt Rate > 60; HDL Cholesterol 28 mg/dL (>40); Potassium 4.4 mmol/L (3.3-5.1); Sodium 139 mmol/L (135-145); Total Protein 6.5 g/dL (6.5-8.0); Triglycerides 265 mg/dL (<150)
[2025-04-15 11:32] LABS: Thyroid Stimulating Hormone 3.53 uIU/mL (0.32-4.0)
[2025-04-15 12:09] LABS: Microalbum/Creatinine Ratio Ur 15.2 ug/mg cr (<30)
== END 2025-04-15 09:42 | disposition home or self-care (01) ==
LOC: HO.LAB 09:41
PROVIDERS: Physician Assistant; PCP Family Medicine; Referring Provider Family Medicine; Visit Provider Psychiatry & Neurology Neurology
DX: E11.9 Type 2 diabetes mellitus without complications (principal); I10 Essential (primary) hypertension; E78.5 Hyperlipidemia, unspecified; R53.83 Other fatigue; M47.816 Spondylosis without myelopathy or radiculopathy, lumbar region; G30.1 Alzheimer's disease with late onset; F02.B4 Dementia in other diseases classified elsewhere, moderate, with anxiety; Z79.4 Long term (current) use of insulin
CPT/HCPCS: 36415; 80053; 80061; 82043; 82570; 83036; 84443; 99212

== ENCOUNTER → 2025-04-15 09:41 | Outpatient (AMB) | payer OTHER, SELFPAY ==
--- NOTE | 2025-04-15 09:49 | MHC.OFFVIS ---
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 His brain imaging revealed moderate generalized atrophy, and an EEG revealed right temporal sharp waves. He was treated for dementia and complex partial seizure disorder. He was feeling sleepy and tired during daytime. He did not know if he snored. He was using CPAP machine. [facility] Medical History (Updated 04/15/25 @ 09:57 by José Gamble MD) Hyperlipidemia Hypertension Alzheimer disease Complex partial seizure disorder Seizure disorder Low back pain BPV (benign positional vertigo) ANKIT (obstructive sleep apnea) Depression Obesity Diabetes Surgical History Hx of laparoscopic gastric banding Hx of cholecystectomy Family History Father Heart disease Mother Breast cancer Social History Household Members: None Housing: Apartment Do you presently have visiting nurse or other home services: No Alcohol intake: never Patient Tobacco Use Status: Never used Tobacco service: No Review of Systems Const Details: As per HPI Physical Exam Neuro Other: Mental Status: Alert and oriented to person, place, and time. Normal attention. Normal spontaneous speech, fluency, and comprehension. Cranial Nerves: CN II: Visual colon full to confrontation, visual acuity intact. CN III, IV, : Pupils equal, round, reactive to light and accommodation. Extraocular movements are normal. CN V: Facial sensation is normal. CN VII: Facial movements symmetrical. CN VIII: Hearing intact to bedside conversation is normal. CN IX, X: Palate elevates symmetrically. CN XI: Shoulder shrug and head turn symmetrical. CN XII: Tongue midline without atrophy or fasciculations. Extrapyramidal: Full facial expressions and blinking. No rigidity. Movements are appropriate with no tremor or abnormality. Speech: Normal; no dysarthria or tremor. Assessment & Plan Assessment & Plan (1) Complex partial seizure disorder: Comment: CT brain WO at [facility] in Jul 2024: Mod diff atrophy MRI brain WO at [facility] in Jun 2024: Mod diff atrophy CTA brain and neck at [facility] in Jun 2024: OKEEG at [facility] in Jul 2024: Mild slowing EEG at [facility] in Jun 2024: Gen slowing, R temp sharp theta EKG at [facility] in Jul 2024: 1st deg AV block. Code(s): G40.209 - Localization-related (focal) (partial) symptomatic epilepsy and epileptic syndromes with complex partial seizures, not intractable, without status epilepticus Category: Medical (2) Alzheimer dementia: Code(s): G30.9 - Alzheimer's disease, unspecified; F02.80 - Dementia in other diseases classified elsewhere, unspecified severity, without behavioral disturbance, psychotic disturbance, mood disturbance, and anxiety Category: Medical Qualifiers: Alzheimer's disease onset: late onset Dementia severity: moderate Dementia behavioral or psychological symptom: with anxiety Qualified Code(s): G30.1 - Alzheimer's disease with late onset; F02.B4 - Dementia in other diseases classified elsewhere, moderate, with anxiety (3) Fatigue: Code(s): R53.83 - Other fatigue Category: Medical Plan Impression: 1. Alzheimer dementia 2. Complex partial seizure disorder 3. ANKIT on CPAP 4. Lethargy probably multifactorial Recommendations: 1. Levetiracetam 500 mg twice a day 2. Sertraline 50 mg daily 3. Donepezil 10 mg a day 4. Walk a mile a day 5. TSH Orders: Orders Thyroid Stimulating Hormone Today R53.83 - Other fatigue Coding Level of Care Code Est Pt Level 5 (22381) Diagnoses Complex partial seizure disorder G40.209 Moderate late onset Alzheimer's dementia with anxiety G30.1; F02.B4 Alzheimer's disease onset: late onset Dementia severity: moderate Dementia behavioral or psychological symptom: with anxiety Fatigue R53.83
--- OUTSIDE RECORDS SUMMARY | 2025-04-15 11:28 | XMS_ITS | Patient Health Record ---
Author Organization [facility] liance Address [address] [place] [address] Care Team Providers Care Furnace Loader Name Role Phone Lisandro Ashtyn Primary Care Provider Unavailab le Clinical, Operations Unavailable Unavailable Harleen Alexander Unavailable [phone] EmmyMervat alvarado Unavailable [phone] Allergies Allergen (clinical drug ingredient) Drug/Non Drug Allergy documented on EMR Reaction Allergy Type Onset Date Status Penicillin Unknown Drug Allergy Active Substance with sulfonamide structure and antibacterial mechanism of action (substance) Sulfa Antibiotics Unknown Drug Allergy Active Reason For Referral Reason Initial PCHM 13.5 ho urs per week (Auth: [id number]) Diagnosis 1 Debility (R53.81) Referring Provider First Name Operations Referring Provider Last Name Clinical Referring Provider Speciality Unknown Referred Provider [employer], [employer]. General Notes This referral is jessi ng sent to supply the member's demographic information for Authorization # ([id number]) This is in addition to the Approval Letter that was sent from [facility]. If for any reason you are unable to accommodate this request, please call [facility] at [phone] Thank You. Referral Priority Routine Medications Medication SIG (Take, Route, Frequency, Duration) Notes Start Date End Date Status Vitamin B-12 500 MCG 1 tablet Orally Once a day Not-Taking Njiwbmfiwm-GBSM-Zhzpn ine 50-325-40 MG 1 tablet as needed [...] Status W/U Status Risk Notes Problem Obesity (017403420) Obesity (E66.9) Active confirmed Problem Obstructive sleep apnea syndrome (96613248) ANKIT (obstructive sleep apnea) (G47.33) Active confirmed Problem Hypertension (41777544) HTN (hypertension) (I10) Active confirmed Problem Vertigo (641796714) Vertigo (R42) Active confirmed Problem Benign prostatic hyperplasia (755413180) BPH (benign prostatic hyperplasia) (N40.0) Active confirmed Problem DM - Diabetes mellitus (63309926) DM (diabetes mellitus) (E11.9) Active confirmed Problem Chronic pain (14487378) Other chronic pain (G89.29) Active confirmed Problem Mild major depression, single episode (96105673) Mild major depression, 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) Active confirmed Vital Signs Height-cm 172.72 cm 04/06/2025 Weight-kg 122.47 kg 04/06/2025 Height 68 in 04/06/2025 Weight 270 lbs 04/06/2025 BMI 41.05 kg/m2 04/06/2025 Encounters Encounter Location Date Provider Diagnosis [address] [address] 07/08/2024 Harleen Alexander [address] [address] 08/05/2024 Harleen Alexander [address] [place] [address] 08/05/2024 Harlene Alexander [address] [address] 10/05/2024 Operations Clinical [address] [address] 12/02/[address] [address] 12/30/2024 Mervat Cheung Vertigo R42 ; Other chronic pain G89.29 and Low back pain, unspecified M54.50 [facility] [place] [address] 04/06/2025 Operations Clinical Other chronic pain G89.29 [...] meet clinical eligibility requirements for PLR per [id number] and a recommendation to deny is being [...] meet clinical eligibility requirements for PLR per [id number] and a recommendation to deny is being [...] meet clinical eligibility requirements for PLR per [id number] and a recommendation to deny is being [...] Insured Coverage Start Date Coverage End Date [facility] SCO ([id number]) [address] [facility] [address] [place] [address] [id number] Rodolfo Azul Self - patient is the insured 3 9 Medical (General) History Medical History History ICD Code 2019 - cataract surgery 2021 - broken right leg
--- OUTSIDE RECORDS SUMMARY | 2025-04-15 11:28 | XMS_ITS | Clinical Summary ---
Author Organization [employer] [facility] it Address [address] [place] [address] Care Team Providers Care Transfill Technician Name Role Phone Unavailable Primary Care Provider Unavailabl e Surgical History Surgery Date Site/Laterality Comments LAPAROSCOPIC GASTRIC BANDING PROCEDURE: LAP ADJUSTABLE GASTRIC BAND; COMMENT: at [facility] - removed 01/14/16 - Dr Sanches HERNIA REPAIR PROCEDURE: HISTORICAL HERNIA REPAIR/ING; COMMENT: times 2 COLONOSCOPY 10/01/2011 PROCEDURE: HISTORICAL COLONOSCOPY; COMMENT: Jennyfer Jimmy; Dim Tubular adenomas x 2. COLONOSCOPY 2006 PROCEDURE: HISTORICAL COLONOSCOPY; COMMENT: date approx; one small polyp COLONOSCOPY 11/16/2014 PROCEDURE: HISTORICAL COLONOSCOPY; COMMENT: Sessile serrated adenoma. Repeat 5 yrs APPENDECTOMY PROCEDURE: HISTORICAL APPENDECTOMY OTHER SURGICAL HISTORY 03/03/2019 PROCEDURE: [place] TRURL ELECTROSURG RESCJ PROSTATE BLEED COMPLETE CHOLECYSTECTOMY [...] Severe obesity (BMI 35.0-39. 9) with comorbidity ([facility] V24, [facility] V28) 01/31/2015 DX:Severe obesi ty (BMI 35.0- 39.9) with comorbidity ([facility]); COMMENT: DIabetes, Hypertension, Hyperlipidemia, ANKIT, Osteoarthritis [...] Documents on File Type Date Recorded Patient Agricultural Produce Commission Agent Expl anation Health Care Decision (hx) 05/28/2022 [...]
== END ==
LOC: HO.HSM 09:42
PROVIDERS: PCP Family Medicine; Referring Provider Family Medicine; Visit Provider Psychiatry & Neurology Neurology
DX: G40.209 Localization-related (focal) (partial) symptomatic epilepsy and epileptic syndromes with complex partial seizures, not intractable, without status epilepticus (principal); G30.1 Alzheimer's disease with late onset; F02.B4 Dementia in other diseases classified elsewhere, moderate, with anxiety; R53.83 Other fatigue
CPT/HCPCS: 99214

== ENCOUNTER 2025-04-15 11:20 | Outpatient (AMB) | payer OTHER, SELFPAY ==
[2025-04-15 11:23] VITALS: BP 117/50; PULSE 80; RESP 18
--- NOTE | 2025-04-15 11:23 | A.OFFVIS_ITS ---
Vital Signs 04/15/25 11:23 Weight 270 lb BP 117/50 L Blood Pressure Location Lt brachial Position Sitting Respiration 18 Pulse 80 Pulse Source Pulse Oximeter Intake Visit Reasons: S/P Bilateral Diagnostic L3-L4-DR L5 MBB Allergies Penicillins Allergy (Unknown, Verified 04/15/25 11:23) Swelling Sulfa (Sulfonamide Antibiotics) Allergy (Unknown, Verified 04/15/25 11:23) Swelling HPI Comments Details: Rodolfo is back in my office after diagnostic medial branch block L3, L4, dorsal ramus L5. He reported pain before the procedure 8/10. Of the procedure he reported no pain for the next 10 hours. He reported that at night his pain started to come back. However it never reached the pre-injection level. He states that today his pain is 3/10. He reported that during the day of the injection he was walking, cooking, performing all the activities which usually aggravate his pain. He reported no pain. We discussed possibility of further treatment of his condition. I explained to him radiofrequency ablation versus peripheral nerve stimulation. The patient chose to go for peripheral nerve stimulation sprint PNS. I will schedule him for to sided procedures 2 weeks apart. He went for the MRI of the lumbar spine results of the MRI dictated as below. For his age his MRI remarkably not very prominent. There are of course some facet joint changes. I offered him diagnostic medial branch block L3, L4, L5 bilateral trying to alleviate the pain in the lower back. Sprint PNS could be tried on this patient in the future if diagnostic medial branch block would be effective to control his pain. Prior: diagnostic cluneal nerve block on the left. The patient reported today that he came home after the injection and went to bed, he did not perform most painful maneuvers which would aggravate her pain, he reported that the pain before the procedure was 4/10, the pain after the procedure was 0/10 however patient said that he was under anesthesia and he did not remember how it felt. 1 hour after the procedure the patient was again 0/10 with all limitations described above. 2 hours after the procedure 3 hours after the procedure and 4 hours after the procedure the patient's pain was 3/10, it is hard to assess what happened after that because patient was resting and not performing aggravating maneuvers and motions. The patient wants to go for 2nd opinion in [facility] he reports that there he will go for appointment with neurosurgeon as well as for the appointment with pain management physician. 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 The MRI is scheduled on February 17. Results of diagnostic sacroiliac joint injection: He reports no pain relief after the procedure. Before that he had diagnostic medial branch block which also did not help him much. He fell asleep after the procedure and the results therefore were inconclusive. He reports that he had MRI lumbar spine 5 years ago. I decided to send him for the MRI of the lumbar spine to reassess his lumbar spine conditions. Prior: very pleasant 77 years old gentleman who presents in my office with complains on pain in the lower back more to the left side. He reported the pain started approximately 3 years ago. He denies inciting events. He reports that standing hurts more than sitting sitting and laying down he experiences no pain. He reports that he can not do daily activities because of his pain, he can not take care of himself but he can not function normally. He had physical therapy April 2023 he had 12 sessions unfortunately it did not help his pain. [facility] Medical History (Updated 04/15/25 @ 09:57 by José Gamble MD) Hyperlipidemia Hypertension Alzheimer disease Complex partial seizure disorder Seizure disorder Low back pain BPV (benign positional vertigo) ANKIT (obstructive sleep apnea) Depression Obesity Diabetes Surgical History Hx of laparoscopic gastric banding Hx of cholecystectomy Family History Father Heart disease Mother Breast cancer Social History Household Members: None Housing: Apartment Do you presently have visiting nurse or other home services: No Alcohol intake: never Patient Tobacco Use Status: Never used Tobacco service: No Review of Systems Const All systems reviewed & are unremarkable except as noted in HPI and below ENT Reports Normal hearing present Neuro Reports Normal hearing present, Denies Abnormal speech present, Denies confusion and Denies Sensory deficit (Neuro) Psych Denies confusion Physical Exam Vital Signs: Last Vital Signs Pulse 80 04/15/25 11:23 Resp 18 04/15/25 11:23 BP 117/50 L 04/15/25 11:23 Const General: No confusion Nutritional Appearance: obese morbidly obese Orientation/consciousness: No confusion Eyes General: appearance normal, both eyes and all related structures Pupils: Equal, round and reactive pupils present EOM: EOMs intact bilaterally Neck Neck: Yes full ROM Chest Chest palpation & inspection: normal inspection of the chest Resp Effort & Inspection: normal respiratory effort, able to speak in complete sentences, normal respiratory pattern, no audible wheezes and no cough Cardio Jugular venous distension: no JVD GI Inspection: Yes normal to inspection Back/Spine/Pelvis Other: Able to stand on bilateral tiptoes in bilateral heels without difficulty. Able to lift great toe in separation of the rest of the toes. Denies numbness and weakness on bilateral lower extremities. Denies Valsalva maneuver aggravating his pain. Denies pelvic organ dysfunction. SLR is negative for pain increase.Lassegue test is negative for pain increase. Jordan test is negative for pain increase. Minimal tenderness on palpation in paraspinal spinal region lumbar spine this time, loading test is positive bilaterally this time. Neuro General: No confusion Cranial nerves: Yes Equal, round and reactive pupils present and Yes Normal hearing present Speech: No Abnormal speech present Gait exam (Neuro): Normal gait present Motor exam (neuro): 5/5 motor strength present throughout Sensory Exam: No Sensory deficit (Neuro) Extrem General: No pedal edema Psych Speech and movement: Normal speech and movement present Affect: normal affect Attitude: cooperative Thought process: Normal thought process present Thought content: Normal thought content present Insight: Good insight present (Psych) Judgement: Good judgement present (Psych) Results Reviewed Results Reviewed: MRI lumbar spine: 01/31/2025. Findings: L5-S1 facet hypertrophy without canal stenosis. Left neural foraminal narrowing noted. L4-5 facet hypertrophy and central osteophyte No canal stenosis or neural foraminal narrowing. L3-L4 facet hypertrophy without canal stenosis Remaining levels demonstrate no significant disc disease. No acute bony signal abnormalities noted. Posterior bony alignment is normal. Incidental small renal cyst. Impression left L5-S1 neural foraminal narrowing. Assessment & Plan Assessment & Plan (1) Spondylosis of lumbar region without myelopathy or radiculopathy: Code(s): M47.816 - Spondylosis without myelopathy or radiculopathy, lumbar region Category: Medical Plan Diagnostic medial branch block L3 L4-5 resulted in excellent pain control. See discussion as above. I will schedule him as he chose to go for Sprint PNS bilateral. I will schedule him for those 2 procedures 2 weeks apart. He was told that he is welcome to come for his dressing changes here in the office. Coding Level of Care Code Est Pt Level 3 (30744) Diagnoses Spondylosis of lumbar region without myelopathy or radiculopathy M47.816
== END 2025-04-15 11:59 | disposition home or self-care (01) ==
PROVIDERS: PCP Family Medicine; Visit Provider Anesthesiology
DX: M47.816 Spondylosis without myelopathy or radiculopathy, lumbar region (principal)
CPT/HCPCS: 99213

== ENCOUNTER 2025-05-18 06:17 | Outpatient (REF) | payer OTHER, SELFPAY ==
--- NOTE | ~2025-05-18 | FL_ITS ---
EXAMINATION: FL GUIDANCE ONLY HISTORY: M47.816 - Spondylosis without myelopathy or radiculopathy, lumbar region COMPARISON: None available. TECHNIQUE: Fluoroscopy time: 11 seconds. Cumulative Dose: 4.60 mGy. DAP: 154.40 uGym2 Images: 1. FINDINGS: A fluoroscopic spot film of the lumbosacral junction demonstrates a probe in the region of the right L5 pedicle. FL/FL guidance in treatment room IMPRESSION: Fluoroscopy during procedure. Please see procedure report for additional information. Electronically signed by: Douglas Head MD 05/18/2025 12:20 PM EDT
--- OUTSIDE RECORDS SUMMARY | 2025-05-18 06:19 | XMS_ITS | Clinical Summary ---
Author Organization [employer] [facility] it Address [address] [place] [address] Care Team Providers Care Supply Analyst Name Role Phone Unavailable Primary Care Provider Unavailabl e Surgical History Surgery Date Site/Laterality Comments LAPAROSCOPIC GASTRIC BANDING PROCEDURE: LAP ADJUSTABLE GASTRIC BAND; COMMENT: at [facility] - removed 01/14/16 - Dr Sanches HERNIA REPAIR PROCEDURE: HISTORICAL HERNIA REPAIR/ING; COMMENT: times 2 COLONOSCOPY 10/01/2011 PROCEDURE: HISTORICAL COLONOSCOPY; COMMENT: Jennyfer Jimmy; Dim Tubular adenomas x 2. COLONOSCOPY 2006 PROCEDURE: HISTORICAL COLONOSCOPY; COMMENT: date approx; one small polyp COLONOSCOPY 11/16/2014 PROCEDURE: HISTORICAL COLONOSCOPY; COMMENT: Sessile serrated adenoma. Repeat 5 yrs APPENDECTOMY PROCEDURE: HISTORICAL APPENDECTOMY OTHER SURGICAL HISTORY 03/03/2019 PROCEDURE: [place] TRURL ELECTROSURG RESCJ PROSTATE BLEED COMPLETE CHOLECYSTECTOMY [...] Severe obesity (BMI 35.0-39. 9) with comorbidity ([facility] V24, [facility] V28) 01/31/2015 DX:Severe obesi ty (BMI 35.0- 39.9) with comorbidity ([facility]); COMMENT: DIabetes, Hypertension, Hyperlipidemia, ANKIT, Osteoarthritis Family [...] Documents on File Type Date Recorded Patient Director Of Food And Nutrition Expl anation Health Care Decision (hx) 05/28/2022 [...]
--- OUTSIDE RECORDS SUMMARY | 2025-05-18 06:19 | XMS_ITS | Patient Health Record ---
Author Organization [facility] liance Address [address] [place] [address] Care Team Providers Care Machine Adjuster Leader Case Trim Name Role Phone Ashtyn Mcmahon Primary Care Provider Unavailab le Clinical, Operations Unavailable Unavailable Harleen Alexander Unavailable [phone] Mervat Cheung Unavailable [phone] Allergies Allergen (clinical drug ingredient) Drug/Non Drug Allergy documented on EMR Reaction Allergy Type Onset Date Status Penicillin Unknown Drug Allergy Active Substance with sulfonamide structure and antibacterial mechanism of action (substance) Sulfa Antibiotics Unknown Drug Allergy Active Reason For Referral No Information Medications Medication SIG (Take, Route, Frequency, Duration) Notes Start Date End Date Status Vitamin B-12 500 MCG 1 tablet Orally Once a day Not-Taking Ilhwfegdms-JYZN-Kodkt ine 50-325-40 MG 1 tablet as needed [...] 1 tablet Orally Once a day Active [employer] 300 UNIT/ML [...] Administration Date Status Comme nts COVID-19 COMIRNATY (PFizer) Unknown 03/31/2025 Administ ered COVID-19 COMIRNATY Vaccine, Fall 2022, SARS-CoV-2 virus strain Omicron XBB.1.5 Unknown 04/22/2023 Administered COVID-19 COMIRNATY Vaccine, Fall 2022, SARS-CoV-2 virus strain Omicron XBB.1.5 Unknown 03/28/2024 Administered Flu Vac (Fluad) QIV PFS Adjuvanted Unknown 04/27/2021 A dministered Flu Vac (Fluzone) High Dose Unknown 03/31/2025 Administ ered Flu Vac NOC (vac given elsewhere/pt. refuse/ [...] Status W/U Status Risk Notes Problem Obesity (520404188) Obesity (E66.9) Active confirmed Problem Obstructive sleep apnea syndrome (51856219) ANKIT (obstructive sleep apnea) (G47.33) Active confirmed Problem Hypertension (48841788) HTN (hypertension) (I10) Active confirmed Problem Vertigo (136124893) Vertigo (R42) Active confirmed Problem Benign prostatic hyperplasia (591415261) BPH (benign prostatic hyperplasia) (N40.0) Active confirmed Problem DM - Diabetes mellitus (95077259) DM (diabetes mellitus) (E11.9) Active confirmed Problem Chronic pain (45741406) Other chronic pain (G89.29) Active confirmed Problem Mild major depression, single episode (12408681) Mild major depression, 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) Active confirmed Vital Signs Height-cm 172.72 cm 04/06/2025 Weight-kg 122.47 kg 04/06/2025 Height 68 in 04/06/2025 Weight 270 lbs 04/06/2025 BMI 41.05 kg/m2 04/06/2025 Encounters Encounter Location Date Provider Diagnosis [address] [address] 12/30/2024 Mervat Cheung Vertigo R42 ; Other chronic pain G89.29 and Low back pain, unspecified M54.[address] [address] 04/06/2025 Operations Clinical Other chronic pain G89.29 ; Mild major depression, single episode F32.0 ; ANKIT (obstructive sleep apnea) G47.33 ; Obesity E66.9 ; BPH (benign prostatic hyperplasia) N40.0 ; Vertigo R42 ; DM (diabetes mellitus) E11.9 and HTN (hypertension) I10 [address] [address] 07/08/2024 Harleen Alexander [address] [address] 08/05/2024 Harleen Alexander [address] [address] 08/05/2024 Harleen Alexander [address] [address] 10/05/2024 Operations Clinical [facility] [place] [address] 12/02/2024 Operations Clinical Assessments Encounter Date Diagnosis [...] meet clinical eligibility requirements for PLR per [id number] and a recommendation to deny is being [...] meet clinical eligibility requirements for PLR per [id number] and a recommendation to deny is being [...] meet clinical eligibility requirements for PLR per [id number] and a recommendation to deny is being [...] Insured Coverage Start Date Coverage End Date [facility] SCO ([id number]) [address] [facility] [address] [place] [address] [id number] Rodolfo Azul Self - patient is the insured 3 9 Medical (General) History Medical History History ICD Code 2019 - cataract surgery 2021 - broken right leg
== END 2025-05-18 06:18 | disposition home or self-care (01) ==
LOC: CF 06:17
PROVIDERS: Visit Provider Anesthesiology
DX: M47.816 Spondylosis without myelopathy or radiculopathy, lumbar region (principal)
CPT/HCPCS: 64555; 64590; C1778; J2003

== ENCOUNTER 2025-05-18 09:37 | Outpatient (AMB) | payer OTHER, SELFPAY ==
--- NOTE | 2025-05-18 09:40 | MHC.OFFVIS ---
Vital Signs 05/18/25 10:05 05/18/25 10:05 Height 5 ft 8 in Weight 270 lb BMI 41.0 BP 116/75 142/72 H Blood Pressure Location Lt brachial Lt brachial Position Sitting Sitting Respiration 16 16 Pulse 71 73 Pulse Source Pulse Oximeter Pulse Oximeter Pulse Oximetry (%) 97 96 Oxygen Delivery Method Room Air Room Air Intake Visit Reasons: Right Sprint PNS L5 Allergies Penicillins Allergy (Unknown, Verified 04/15/25 11:23) Swelling Sulfa (Sulfonamide Antibiotics) Allergy (Unknown, Verified 04/15/25 11:23) Swelling PFSH Medical History (Updated 04/15/25 @ 09:57 by José Gamble MD) Hyperlipidemia Hypertension Alzheimer disease Complex partial seizure disorder Seizure disorder Low back pain BPV (benign positional vertigo) ANKIT (obstructive sleep apnea) Depression Obesity Diabetes Surgical History Hx of laparoscopic gastric banding Hx of cholecystectomy Family History Father Heart disease Mother Breast cancer Social History Household Members: None Housing: Apartment Do you presently have visiting nurse or other home services: No Alcohol intake: never Patient Tobacco Use Status: Never used Tobacco service: No Physical Exam Vital Signs: Last Vital Signs Pulse 73 05/18/25 10:05 Resp 16 05/18/25 10:05 BP 142/72 H 05/18/25 10:05 Pulse Ox 96 05/18/25 10:05 Oxygen Delivery Method Room Air 05/18/25 10:05 BMI result Body Mass Index 41.0 Assessment & Plan Assessment & Plan (1) Spondylosis of lumbar region without myelopathy or radiculopathy: Code(s): M47.816 - Spondylosis without myelopathy or radiculopathy, lumbar region Category: Medical Plan Percutaneous implantation of peripheral nerve stimulation Sprint system right L5 the risks, benefits and alternatives were discussed with the patient and informed consent was obtained, patient was placed in the prone position and padded to foster comfort. Time out was performed delineating correct site and side of the procedure , name and of the patient, patient participated in time out procedure. Theupper back and posterior neck of the patient was prepped with ChloraPrep and draped with sterile self adhesive utility towels. C-arm was brought over the operating field and clear picture of the L5 lamina on the right was delineated on the screen. The upper central portion of the lamina was chosen as a target of the needle tip insertion . After identifying and marking the intended target, the skin around the planned entry point and the subcutaneous tissues were injected with local anesthetic forming skin wheal.. A percutaneous sleeve and stimulating probe lead introduction system were assembled, inserted and advanced through the skin wheal to the point of interest under C-arm viewL Right L5 lamina., the introducer needle was delivered to a location in proximity to the nerve. Multiple stimulation parameters were used to deliver stimulation to the nerve in concert with stimulating at multiple positions around the nerve. The nerve target acquisition was confirmed noting generation of in the corresponding to the nerve being stimulated. Various electrical parameter combinations were tested, and the lead location was adjusted (physically relocated) until the patient indicated overlapping the distribution of the patient?s typical region of pain. The stimulating probe was removed from the introducer and a percutaneous lead was guided through the needle and delivered to a location in similar proximity to the nerve. Final location was verified with electrical stimulation. The introducer needle was removed, and the exposed end of the percutaneous lead was attached to an external stimulator unit. At the end of the case various electrical parameter combinations were again tested until the patient indicated paresthesia or muscle tension overlapping the distribution of the patient?s typical region of pain. After confirming that lead impedance was in the normal range, the external unit was detached, the needle was removed, and the lead was anchored at the skin. The leads were threaded into the connector block and electrical continuity and desired patient response was confirmed. The connector block was attached to the external stimulator unit. The site was covered with a sterile occlusive dressing and a image was taken to document final placement. Upon completion of the procedure the patient was taken outside the OR where she recovered uneventfully she went home without immediate complications. Orders: Orders FL guidance in treatment room Today M47.816 - Spondylosis without myelopathy or radiculopathy, lumbar region Coding Level of Care Code Procedure Only Diagnoses Spondylosis of lumbar region without myelopathy or radiculopathy M47.816 Implantable Device Implantable Device Implantable Devices Qty Firearms Assembly Supervisor Implant Date Expiration Date Analgesic PENS system 1 [employer] 05/18/25
[2025-05-18 10:05] VITALS: BP 116/75; BP 142/72; PULSE 71; PULSE 73; RESP 16; O2SAT 96; O2SAT 97; BMI 41.0
== END 2025-05-18 10:28 | disposition home or self-care (01) ==
LOC: HO.PMCPRC 09:37
PROVIDERS: PCP Family Medicine; Visit Provider Anesthesiology
DX: M47.816 Spondylosis without myelopathy or radiculopathy, lumbar region (principal)
CPT/HCPCS: 64555; 64590

== ENCOUNTER 2025-06-01 06:12 | Outpatient (REF) | payer OTHER, SELFPAY ==
--- NOTE | ~2025-06-01 | FL_ITS ---
EXAMINATION: FLUOROSCOPY GUIDANCE FOR NEEDLE PLACEMENT CLINICAL INFORMATION: M47.816 - Spondylosis without myelopathy or radiculopathy, lumbar region COMPARISON: Previous fluoroscopy exam most recent March and April 2025 TECHNIQUE: Fluoroscopy guidance for pain management procedure FINDINGS: Images demonstrate probe and wires projecting over the bilateral lumbar spine. FLUOROSCOPY TIME: 19 seconds DOSE: 7.2 mgy . 5 submitted images. FL/FL guidance in treatment room IMPRESSION: Fluoroscopy guidance for pain management procedure. Electronically signed by: Ping Anderson MD 06/01/2025 11:56 AM NATALIE
--- OUTSIDE RECORDS SUMMARY | 2025-06-01 06:14 | XMS_ITS | Clinical Summary ---
Author Organization [email or web address] [facility] it Address [address] [place] [address] Care Team Providers Care Educational Aide Name Role Phone Unavailable Primary Care Provider Unavailabl e Surgical History Surgery Date Site/Laterality Comments LAPAROSCOPIC GASTRIC BANDING PROCEDURE: LAP ADJUSTABLE GASTRIC BAND; COMMENT: at [facility] - removed 01/14/16 - Dr Sanches HERNIA REPAIR PROCEDURE: HISTORICAL HERNIA REPAIR/ING; COMMENT: times 2 COLONOSCOPY 10/01/2011 PROCEDURE: HISTORICAL COLONOSCOPY; COMMENT: Jennyfer Jimmy; Dim Tubular adenomas x 2. COLONOSCOPY 2006 PROCEDURE: HISTORICAL COLONOSCOPY; COMMENT: date approx; one small polyp COLONOSCOPY 11/16/2014 PROCEDURE: HISTORICAL COLONOSCOPY; COMMENT: Sessile serrated adenoma. Repeat 5 yrs APPENDECTOMY PROCEDURE: HISTORICAL APPENDECTOMY OTHER SURGICAL HISTORY 03/03/2019 PROCEDURE: MS TRURL ELECTROSURG RESCJ PROSTATE BLEED COMPLETE CHOLECYSTECTOMY [...] Severe obesity (BMI 35.0-39. 9) with comorbidity ([facility] V24, [facility] V28) 01/31/2015 DX:Severe obesi ty (BMI 35.0- 39.9) with comorbidity ([facility]); COMMENT: DIabetes, Hypertension, Hyperlipidemia, ANKIT, Osteoarthritis Family [...] Documents on File Type Date Recorded Patient Pension Administrator Expl anation Health Care Decision (hx) 05/28/2022 [...]
--- OUTSIDE RECORDS SUMMARY | 2025-06-01 06:14 | XMS_ITS | Patient Health Record ---
Author Organization [facility] liance Address [address] [place] [address] Care Team Providers Care Farmworker Poultry Name Role Phone Ashtyn Mcmahon Primary Care Provider Unavailab le Clinical, Operations Unavailable Unavailable Harleen Alexander Unavailable [phone] Mervat Cheung Unavailable [phone] Allergies Allergen (clinical drug ingredient) Drug/Non Drug [...] 1 tablet Orally Once a day Not-Taking Umwqravkha-FGYB-Rnszh ine 50-325-40 MG 1 tablet as needed [...] Status W/U Status Risk Notes Problem Obesity (281510612) Obesity (E66.9) Active confirmed Problem Obstructive sleep apnea syndrome (93586906) ANKIT (obstructive sleep apnea) (G47.33) Active confirmed Problem Hypertension (87684714) HTN (hypertension) (I10) Active confirmed Problem Vertigo (135577428) Vertigo (R42) Active confirmed Problem Benign prostatic hyperplasia (265411974) BPH (benign prostatic hyperplasia) (N40.0) Active confirmed Problem DM - Diabetes mellitus (61003463) DM (diabetes mellitus) (E11.9) Active confirmed Problem Chronic pain (05285150) Other chronic pain (G89.29) Active confirmed Problem Mild major depression, single episode (09995239) Mild major depression, 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) Active confirmed Vital Signs Height-cm 172.72 cm 04/06/2025 Weight-kg 122.47 kg 04/06/2025 Height 68 in 04/06/2025 Weight 270 lbs 04/06/2025 BMI 41.05 kg/m2 04/06/2025 Encounters Encounter Location Date Provider Diagnosis [address] [place] [address] 07/08/2024 Harleen Alexander [address] [place] [address] 08/05/2024 Harleen Alexander [address] [place] [address] 08/05/2024 Harleen Alexander [address] [address] 10/05/2024 Operations Clinical [address] [address] 12/02/2024 Operations Clinical [address] [address] 12/30/2024 Mervat Chualoulou Vertigo R42 ; Other chronic pain G89.29 and Low back pain, unspecified M54.[address] [address] 04/06/2025 Operations Clinical Other chronic pain G89.29 [...] meet clinical eligibility requirements for PLR per [id number] and a recommendation to deny is being [...] meet clinical eligibility requirements for PLR per [id number] and a recommendation to deny is being [...] 04/06/2025 Other chronic pain (ICD-10 - G89.29) 12/30/2024 Low back pain, unspecified (ICD-10 - [...] meet clinical eligibility requirements for PLR per [id number] and a recommendation to deny is being [...] process. Member agreed to this POC 04/06/2025 Mild major depression, single episode (ICD-10 - F32.0) 04/06/2025 ANKIT (obstructive sleep apnea) (ICD-10 - [...] [facility] ([id number]) [address] [facility] [place] [address] [id number] Rodolfo Azul Self - patient is the insured 3 9 Medical (General) History Medical History History ICD Code 2019 - cataract surgery 2021 - broken right leg
== END 2025-06-01 06:13 | disposition home or self-care (01) ==
LOC: CF 06:12
PROVIDERS: Visit Provider Anesthesiology
DX: M47.816 Spondylosis without myelopathy or radiculopathy, lumbar region (principal)
CPT/HCPCS: 64555; 64590; C1778; C2625; J2003

== ENCOUNTER 2025-06-01 08:42 | Outpatient (AMB) | payer OTHER, SELFPAY ==
[2025-06-01 08:46] VITALS: BP 141/76; PULSE 63; RESP 16; O2SAT 97; BMI 41.0
--- NOTE | 2025-06-01 08:46 | MHC.OFFVIS ---
Vital Signs 06/01/25 08:46 06/01/25 09:30 Height 5 ft 8 in Weight 270 lb BMI 41.0 BP 141/76 H 137/77 Blood Pressure Location Lt brachial Lt brachial Position Sitting Sitting Respiration 16 16 Pulse 63 69 Pulse Source Pulse Oximeter Pulse Oximeter Pulse Oximetry (%) 97 97 Oxygen Delivery Method Room Air Room Air Intake Visit Reasons: Left Sprint PNS L5 Allergies Penicillins Allergy (Unknown, Verified 05/25/25 13:42) Swelling Sulfa (Sulfonamide Antibiotics) Allergy (Unknown, Verified 05/25/25 13:42) Swelling PFSH Medical History (Updated 04/15/25 @ 09:57 by José Gamble MD) Hyperlipidemia Hypertension Alzheimer disease Complex partial seizure disorder Seizure disorder Low back pain BPV (benign positional vertigo) ANKIT (obstructive sleep apnea) Depression Obesity Diabetes Surgical History Hx of laparoscopic gastric banding Hx of cholecystectomy Family History Father Heart disease Mother Breast cancer Social History Household Members: None Housing: Apartment Do you presently have visiting nurse or other home services: No Alcohol intake: never Patient Tobacco Use Status: Never used Tobacco service: No Physical Exam Vital Signs: Last Vital Signs Pulse 69 06/01/25 09:30 Resp 16 06/01/25 09:30 BP 137/77 06/01/25 09:30 Pulse Ox 97 06/01/25 09:30 Oxygen Delivery Method Room Air 06/01/25 09:30 BMI result Body Mass Index 41.0 Assessment & Plan Assessment & Plan (1) Spondylosis of lumbar region without myelopathy or radiculopathy: Code(s): M47.816 - Spondylosis without myelopathy or radiculopathy, lumbar region Category: Medical Plan Percutaneous implantation of peripheral nerve stimulation Sprint system bilateral L5 the risks, benefits and alternatives were discussed with the patient and informed consent was obtained, patient was placed in the prone position and padded to foster comfort. Time out was performed delineating correct site and side of the procedure , name and of the patient, patient participated in time out procedure. Theupper back and posterior neck of the patient was prepped with ChloraPrep and draped with sterile self adhesive utility towels. C-arm was brought over the operating field and clear picture of the L5 lamina on the right was delineated on the screen. The upper central portion of the lamina was chosen as a target of the needle tip insertion . After identifying and marking the intended target, the skin around the planned entry point and the subcutaneous tissues were injected with local anesthetic forming skin wheal.. A percutaneous sleeve and stimulating probe lead introduction system were assembled, inserted and advanced through the skin wheal to the point of interest under C-arm viewL Right L5 lamina., the introducer needle was delivered to a location in proximity to the nerve. Multiple stimulation parameters were used to deliver stimulation to the nerve in concert with stimulating at multiple positions around the nerve. The nerve target acquisition was confirmed noting generation of in the corresponding to the nerve being stimulated. Various electrical parameter combinations were tested, and the lead location was adjusted (physically relocated) until the patient indicated overlapping the distribution of the patient?s typical region of pain. The stimulating probe was removed from the introducer and a percutaneous lead was guided through the needle and delivered to a location in similar proximity to the nerve. Final location was verified with electrical stimulation. The introducer needle was removed, and the exposed end of the percutaneous lead was attached to an external stimulator unit. After that the needle advancement was performed for the left L5 lamina in the same very fashion with the same electrical parameters obtained. At the end of the case various electrical parameter combinations were again tested until the patient indicated paresthesia or muscle tension overlapping the distribution of the patient?s typical region of pain. After confirming that leads impedance was in the normal range, the external unit was detached, the needle was removed, and the lead was anchored at the skin. The leads were threaded into the connector block and electrical continuity and desired patient response was confirmed. The connector block was attached to the external stimulator unit. The site was covered with a sterile occlusive dressing and a image was taken to document final placement. Upon completion of the procedure the patient was taken outside the OR where he recovered uneventfully he went home without immediate complications. Orders: Orders FL guidance in treatment room Today M47.816 - Spondylosis without myelopathy or radiculopathy, lumbar region Coding Level of Care Code Procedure Only Diagnoses Spondylosis of lumbar region without myelopathy or radiculopathy M47.816 Implantable Device Implantable Device Implantable Devices Qty Warehousing Technician Implant Date Expiration Date Analgesic PENS system 1 [employer] 05/18/25 Analgesic PENS system 1 [employer] 06/01/25
[2025-06-01 09:30] VITALS: BP 137/77; PULSE 69; RESP 16; O2SAT 97
== END 2025-06-01 09:46 | disposition home or self-care (01) ==
LOC: HO.PMCPRC 08:42
PROVIDERS: PCP Family Medicine; Visit Provider Anesthesiology
DX: M47.816 Spondylosis without myelopathy or radiculopathy, lumbar region (principal)
CPT/HCPCS: 64555; 64590

== ENCOUNTER 2025-06-09 09:57 | Outpatient (AMB) | payer OTHER, SELFPAY ==
--- NOTE | 2025-06-09 10:00 | MHC.OFFVIS ---
Vital Signs 06/09/25 10:07 Height 5 ft 8 in Weight 270 lb BMI 41.0 BP 144/66 H Blood Pressure Location Rt brachial Position Sitting Respiration 16 Pulse 56 Pulse Source Pulse Oximeter Pulse Oximetry (%) 96 Oxygen Delivery Method Room Air Intake Visit Reasons: S/P Left Sprint PNS L5 Intake Note: Dressing changed Soda Fountain Manager Required: No Accompanied by: Self / Same As Patient Allergies Penicillins Allergy (Unknown, Verified 06/09/25 10:09) Swelling Sulfa (Sulfonamide Antibiotics) Allergy (Unknown, Verified 06/09/25 10:09) Swelling HPI Comments Details: Rodolfo is back in my office after completion of the sprint PNS system to treat his lower back pain. He reports excellent results of the stimulation. The dressing change did not demonstrate any inflammation. The patient will be seen in 6 weeks. After this 6 weeks we will remove the stimulating wires. Prior: diagnostic medial branch block L3, L4, dorsal ramus L5. He reported pain before the procedure 8/10. Of the procedure he reported no pain for the next 10 hours. He reported that at night his pain started to come back. However it never reached the pre-injection level. He states that today his pain is 3/10. He reported that during the day of the injection he was walking, cooking, performing all the activities which usually aggravate his pain. He reported no pain. We discussed possibility of further treatment of his condition. I explained to him radiofrequency ablation versus peripheral nerve stimulation. The patient chose to go for peripheral nerve stimulation sprint PNS. He went for the MRI of the lumbar spine results of the MRI dictated as below. For his age his MRI remarkably not very prominent. There are of course some facet joint changes. I offered him diagnostic medial branch block L3, L4, L5 bilateral trying to alleviate the pain in the lower back. Sprint PNS could be tried on this patient in the future if diagnostic medial branch block would be effective to control his pain. Prior: diagnostic cluneal nerve block on the left. The patient reported today that he came home after the injection and went to bed, he did not perform most painful maneuvers which would aggravate her pain, he reported that the pain before the procedure was 4/10, the pain after the procedure was 0/10 however patient said that he was under anesthesia and he did not remember how it felt. 1 hour after the procedure the patient was again 0/10 with all limitations described above. 2 hours after the procedure 3 hours after the procedure and 4 hours after the procedure the patient's pain was 3/10, it is hard to assess what happened after that because patient was resting and not performing aggravating maneuvers and motions. The patient wants to go for 2nd opinion in [facility] he reports that there he will go for appointment with neurosurgeon as well as for the appointment with pain management physician. 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 The MRI is scheduled on February 17. Results of diagnostic sacroiliac joint injection: He reports no pain relief after the procedure. Before that he had diagnostic medial branch block which also did not help him much. He fell asleep after the procedure and the results therefore were inconclusive. He reports that he had MRI lumbar spine 5 years ago. I decided to send him for the MRI of the lumbar spine to reassess his lumbar spine conditions. Prior: very pleasant 77 years old gentleman who presents in my office with complains on pain in the lower back more to the left side. He reported the pain started approximately 3 years ago. He denies inciting events. He reports that standing hurts more than sitting sitting and laying down he experiences no pain. He reports that he can not do daily activities because of his pain, he can not take care of himself but he can not function normally. He had physical therapy April 2023 he had 12 sessions unfortunately it did not help his pain. [facility] Medical History (Updated 04/15/25 @ 09:57 by José Gamble MD) Hyperlipidemia Hypertension Alzheimer disease Complex partial seizure disorder Seizure disorder Low back pain BPV (benign positional vertigo) ANKIT (obstructive sleep apnea) Depression Obesity Diabetes Surgical History Hx of laparoscopic gastric banding Hx of cholecystectomy Family History Father Heart disease Mother Breast cancer Social History Household Members: None Housing: Apartment Do you presently have visiting nurse or other home services: No Alcohol intake: never Patient Tobacco Use Status: Never used Tobacco service: No Review of Systems Const All systems reviewed & are unremarkable except as noted in HPI and below ENT Reports Normal hearing present Neuro Reports Normal hearing present, Denies Abnormal speech present, Denies confusion and Denies Sensory deficit (Neuro) Psych Denies confusion Physical Exam Vital Signs: Last Vital Signs Pulse 56 06/09/25 10:07 Resp 16 06/09/25 10:07 BP 144/66 H 06/09/25 10:07 Pulse Ox 96 06/09/25 10:07 Oxygen Delivery Method Room Air 06/09/25 10:07 BMI result Body Mass Index 41.0 Const General: No confusion Nutritional Appearance: obese morbidly obese Orientation/consciousness: No confusion Eyes General: appearance normal, both eyes and all related structures Pupils: Equal, round and reactive pupils present EOM: EOMs intact bilaterally Neck Neck: Yes full ROM Chest Chest palpation & inspection: normal inspection of the chest Resp Effort & Inspection: normal respiratory effort, able to speak in complete sentences, normal respiratory pattern, no audible wheezes and no cough Cardio Jugular venous distension: no JVD GI Inspection: Yes normal to inspection Back/Spine/Pelvis Other: Able to stand on bilateral tiptoes in bilateral heels without difficulty. Able to lift great toe in separation of the rest of the toes. Denies numbness and weakness on bilateral lower extremities. Denies Valsalva maneuver aggravating his pain. Denies pelvic organ dysfunction. SLR is negative for pain increase.Lassegue test is negative for pain increase. Jordan test is negative for pain increase. Minimal tenderness on palpation in paraspinal spinal region lumbar spine this time, loading test is positive bilaterally this time. Neuro General: No confusion Cranial nerves: Yes Equal, round and reactive pupils present and Yes Normal hearing present Speech: No Abnormal speech present Gait exam (Neuro): Normal gait present Motor exam (neuro): 5/5 motor strength present throughout Sensory Exam: No Sensory deficit (Neuro) Extrem General: No pedal edema Psych Speech and movement: Normal speech and movement present Affect: normal affect Attitude: cooperative Thought process: Normal thought process present Thought content: Normal thought content present Insight: Good insight present (Psych) Judgement: Good judgement present (Psych) Results Reviewed Results Reviewed: MRI lumbar spine: 01/31/2025. Findings: L5-S1 facet hypertrophy without canal stenosis. Left neural foraminal narrowing noted. L4-5 facet hypertrophy and central osteophyte No canal stenosis or neural foraminal narrowing. L3-L4 facet hypertrophy without canal stenosis Remaining levels demonstrate no significant disc disease. No acute bony signal abnormalities noted. Posterior bony alignment is normal. Incidental small renal cyst. Impression left L5-S1 neural foraminal narrowing. Assessment & Plan Assessment & Plan (1) Spondylosis of lumbar region without myelopathy or radiculopathy: Code(s): M47.816 - Spondylosis without myelopathy or radiculopathy, lumbar region Category: Medical Plan Diagnostic medial branch block L3 L4-5 resulted in excellent pain control. Completion of the sprint PNS system resulted in very good pain relief of the lower back pain for this patient. Next appointment in 6 weeks. We will remove the wires at that time. Coding Level of Care Code Est Pt Level 3 (80330) Diagnoses Spondylosis of lumbar region without myelopathy or radiculopathy M47.816
[2025-06-09 10:07] VITALS: BP 144/66; PULSE 56; RESP 16; O2SAT 96; BMI 41.0
--- OUTSIDE RECORDS SUMMARY | 2025-06-09 18:39 | XMS_ITS | Clinical Summary ---
Author Organization [facility] it Address [address] [place] [address] Care Team Providers Care Senior Care Assistant Name Role Phone Unavailable Primary Care Provider Unavailabl e Surgical History Surgery Date Site/Laterality Comments LAPAROSCOPIC GASTRIC BANDING PROCEDURE: LAP ADJUSTABLE GASTRIC BAND; COMMENT: at [facility] - removed 01/14/16 - Dr Sanches HERNIA REPAIR PROCEDURE: HISTORICAL HERNIA REPAIR/ING; COMMENT: times 2 COLONOSCOPY 10/01/2011 PROCEDURE: HISTORICAL COLONOSCOPY; COMMENT: Jennyfer Jimmy; Dim Tubular adenomas x 2. COLONOSCOPY 2006 PROCEDURE: HISTORICAL COLONOSCOPY; COMMENT: date approx; one small polyp COLONOSCOPY 11/16/2014 PROCEDURE: HISTORICAL COLONOSCOPY; COMMENT: Sessile serrated adenoma. Repeat 5 yrs APPENDECTOMY PROCEDURE: HISTORICAL APPENDECTOMY OTHER SURGICAL HISTORY 03/03/2019 PROCEDURE: PA TRURL ELECTROSURG RESCJ PROSTATE BLEED COMPLETE CHOLECYSTECTOMY [...] Severe obesity (BMI 35.0-39. 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
== END 2025-06-09 10:17 | disposition home or self-care (01) ==
LOC: HO.PMC 09:58
PROVIDERS: PCP Family Medicine; Visit Provider Anesthesiology
DX: M47.816 Spondylosis without myelopathy or radiculopathy, lumbar region (principal)
CPT/HCPCS: 99024

== ENCOUNTER → 2025-06-09 09:57 | Outpatient (BNVA) | payer OTHER, SELFPAY | PROVIDERS: PCP Family Medicine; Visit Provider Anesthesiology | DX: M47.816 Spondylosis without myelopathy or radiculopathy, lumbar region (principal) | CPT/HCPCS: 99212 ==

== ENCOUNTER 2025-06-28 09:57 | Outpatient (AMB) | payer OTHER, SELFPAY ==
[2025-06-28 10:01] VITALS: BP 108/64; PULSE 65; O2SAT 97; BMI 41.5
--- NOTE | 2025-06-28 10:01 | A.OFFVIS_ITS ---
Vital Signs 06/28/25 10:01 Height 5 ft 8 in Weight 273 lb BMI 41.5 BP 108/64 Blood Pressure Location Lt brachial Position Sitting Pulse 65 Pulse Source Pulse Oximeter Pulse Oximetry (%) 97 Oxygen Delivery Method Room Air Intake Visit Reasons: dm and labs prior Intake Note: Patient present today for Type 2 Diabetes Mellitus Last Diabetic eye exam: Last exam was in April. Last Podiatry Visit: Last seen 2 weeks ago. Random Glucose: 182 mg/dl HgA1C: 6.8% 04/15/25 Senior Revenue Accountant Required: No Accompanied by: Self / Same As Patient Allergies Penicillins Allergy (Unknown, Verified 06/28/25 10:08) Swelling Sulfa (Sulfonamide Antibiotics) Allergy (Unknown, Verified 06/28/25 10:08) Swelling Medication List - Last Reconciled 06/28/25 by Tiffani Pitts PA-C acetaminophen 500 mg PO Q6H PRN amlodipine 10 mg PO DAILY aspirin 1 tab PO DAILY atorvastatin 1 tab PO DAILY blood-glucose sensor (Grapeshotyle Mercedes 3 Plus Sensor device) Use daily As directed to monitor glucose clotrimazole-betamethasone 1-0.05 % 1 appl topical BID PRN diclofenac sodium 75 mg PO BID docusate sodium 200 mg PO DAILY donepezil 10 mg PO BEDTIME 30 days empagliflozin (Jardiance) 10 mg PO DAILY insulin glargine U-300 conc (Toujeo SoloStar U-300 Insulin) 60 units (0.2 mL) subcut BEDTIME 90 days insulin lispro (Humalog U-100 Insulin) 1 sliding scale dose subcut TIDAC lactulose 15 mL PO DAILY levetiracetam 500 mg PO BID metformin 1,000 mg (2 x 500 mg) PO BID 90 days metoprolol succinate ER 100 mg PO BID sennosides (senna) 17.2 mg PO DAILY PRN sertraline 50 mg PO DAILY tirzepatide (Mounjaro) 15 mg (0.5 mL) subcut TU@0900 HPI HPI dm and labs prior: Details: Patient is a 79-year-old male with a significant past medical history of Alzheimer's disease, seizure disorder , hyperlipidemia, hypertension, insulin- dependent type 2 diabetes presenting today for a diabetic consultation. Endo: He did come to this appointment today by himself. He says that he was diagnosed with diabetes around 2019. His most recent A1c was 6.8. He is currently on metformin 1000 mg, Mounjaro 15 mg weekly, Jardiance 10 mg daily, Toujeo 60 units and Humalog sliding scale 10-16 units -he does not know his sliding scale but has a chart at home. Hypoglycemia- states he rarely experiences hypoglycemia but we will treat this with food. States that he understands how to treat low blood sugars and has candy if needed. Hyperglycemia- rare, states he is usually less than 200 post prandial CGM- mercedes 3+ but did not bring his reader. He states that he is always in the green. CV: Blood pressure today in the office is 108/64. He is currently on amlodipine 10 mg daily, metoprolol 100 mg. Cholesterol is managed with ator vastatin 40 mg daily. [facility] Medical History (Updated 04/15/25 @ 09:57 by José Gamble MD) Hyperlipidemia Hypertension Alzheimer disease Complex partial seizure disorder Seizure disorder Low back pain BPV (benign positional vertigo) ANKIT (obstructive sleep apnea) Depression Obesity Diabetes Surgical History Hx of laparoscopic gastric banding Hx of cholecystectomy Family History Father Heart disease Mother Breast cancer Social History Household Members: None Housing: Apartment Do you presently have visiting nurse or other home services: No Alcohol intake: never Patient Tobacco Use Status: Never used Tobacco service: No Physical Exam Const Orientation/consciousness: patient oriented x3 Neck Neck: Yes no lymphadenopathy Thyroid: Thyroid normal Carotids: no bruits Resp Auscultation: clear to auscultation bilaterally Cardio Rate: regular rate Rhythm: regular rhythm Heart sounds: S1 normal heart sound present and S2 normal heart sound present Peripheral pulses: dorsalis pedis present Neuro General: patient oriented x3, gait normal and no focal motor deficits Extrem Other: Monofilament sensation intact bilaterally. Vibratory sensation intact bilaterally. Skin intact. General: Yes normal to inspection Assessment & Plan Assessment & Plan (1) Controlled type 2 diabetes mellitus with insulin therapy: Code(s): E11.9 - Type 2 diabetes mellitus without complications; Z79.4 - [facility] (current) use of insulin Category: Medical Plan: Continue current regimen He will bring his reader to the next appointment Declines additional diabetic Education today Reviewed rule of 15 at length. Discussed signs and symptoms of hyper and hypoglycemia that would require emergent medical treatment. I have sent prescriptions to the pharmacy Declines backup testing supplies and states that he has many at home (2) Hypertension: Code(s): I10 - Essential (primary) hypertension Category: Medical Plan: WNL. Continue current regimen (3) Hyperlipidemia: Code(s): E78.5 - Hyperlipidemia, unspecified Category: Medical Plan: Continue atorvastatin Coding Level of Care Code Est Pt Level 4 (84478) Complex visit Add On G2211 Diagnoses Controlled type 2 diabetes mellitus with insulin therapy E11.9; Z79.4 Hypertension I10 Hyperlipidemia E78.5
[2025-06-28 10:14] LABS: Glucose, Whole Blood 182 mg/dL (60-115)
== END 2025-06-28 10:27 | disposition home or self-care (01) ==
LOC: HO.ENCR 09:58
PROVIDERS: PCP Family Medicine; Visit Provider Physician Assistant
DX: E11.9 Type 2 diabetes mellitus without complications (principal); Z79.4 Long term (current) use of insulin; I10 Essential (primary) hypertension; E78.5 Hyperlipidemia, unspecified

== ENCOUNTER → 2025-06-28 09:57 | Outpatient (BNVA) | payer OTHER, SELFPAY | PROVIDERS: PCP Family Medicine; Visit Provider Physician Assistant | DX: E11.9 Type 2 diabetes mellitus without complications (principal); E78.5 Hyperlipidemia, unspecified; I10 Essential (primary) hypertension; Z79.84 Long term (current) use of oral hypoglycemic drugs; Z79.4 Long term (current) use of insulin | CPT/HCPCS: 82947; 99212 ==